=== PATIENT | male | born 1960 | race Caucasian/White ===

== ENCOUNTER 2020-09-25 13:43 | Emergency (ER) | payer OTHER, MEDICARE, SELFPAY ==
[2020-09-25 14:01] VITALS: BP 169/98; PULSE 72; RESP 18; O2SAT 100; BMI 19.2
--- NOTE | 2020-09-25 14:12 | CT_ITS ---
EXAMINATION: CT CERVICAL SPINE WITHOUT CONTRAST CLINICAL INFORMATION: Fall COMPARISON: Prior CT April 2019 TECHNIQUE: CT scan of cervical spine with reconstruction imaging performed at the acquisition workstation This CT examination was performed using dose optimization techniques as appropriate, variously including the following: *Automated exposure control *Adjustment of mA and/or kV according to patient size (this includes techniques or standardized protocols for targeted exams where dose is matched to indication/reason for exam; i.e. extremities or head) *Use of iterative reconstruction technique DLP: 310 mGy-cm FINDINGS: There is no fracture. There is multilevel spondylosis of the cervical spine with degenerative changes most prominent at the C5-C6 level with a prominent disc space narrowing endplate osteophytes. There is mild retrolisthesis of C5 on C6 likely due to degenerative changes. There is also anterolisthesis of C4 on C5 secondary to degenerative changes with advanced facet arthrosis. Additional degenerative changes noted throughout with varying degrees of facet arthrosis and degenerative disc change stable compared with the prior examination 2018. Additional findings: There is emphysema noted in the lung apices bilaterally unchanged. CT/CT cervical spine wo con IMPRESSION: No acute abnormality. Multilevel spondylosis of the cervical spine
--- NOTE | 2020-09-25 14:12 | CT_ITS ---
EXAMINATION: CT HEAD WITHOUT CONTRAST CLINICAL INFORMATION: Fall 2010 feet head injury. COMPARISON: CT head April 2019. TECHNIQUE: Contiguous axial imaging was performed from the skull base to vertex without intravenous administration of contrast. This CT examination was performed using dose optimization techniques as appropriate, variously including the following: *Automated exposure control *Adjustment of mA and/or kV according to patient size (this includes techniques or standardized protocols for targeted exams where dose is matched to indication/reason for exam; i.e. extremities or head) *Use of iterative reconstruction technique DLP: 1011 mGy-cm FINDINGS: There is no evidence of acute intracranial hemorrhage or territorial infarction. No abnormal mass effect or midline shift is seen. Lucio to white matter differentiation is well preserved. No extra-axial fluid collections are identified. The ventricles are normal in size. There is no abnormal attenuation within the brain parenchyma. The osseous structures and soft tissues are normal. The mastoid air cells and visualized portions of the paranasal sinuses are well aerated. CT/CT head/brain wo con IMPRESSION: No acute intracranial pathology.
--- NOTE | 2020-09-25 14:45 | PC.NURSE ---
WHEN TOLD THAT HE SHOULD NOT EAT, PT BEGAN TO YELL AND GOT DRESSED AND STATED HE WAS LEAVING, WHEN WE DISCUSSED THE REASONS WHY HE STILL DEMANDED TO EAT OR HE WAS LEAVING, THEN HE WALKED TO THE BATHROOM W HIS COLLAR ON STILL, PT IS ORIENTED X 3
--- NOTE | 2020-09-25 15:15 | PC.NURSE ---
patient was not seen by this nurse, this nurse went in to speak with the patient and his c-collar as well as hospital attire was found on the bed, pt was looked for and was not found, provider notified. pt eloped
--- NOTE | 2020-09-25 15:24 | ED.FALL ---
HPI - Fall General Chief Complaint: Fall Stated Complaint: fell hit back and shoulder area Time Seen by Provider: 09/25/20 14:12 Source: patient Mode of arrival: ambulatory History of Present Illness HPI Narrative: 59-year-old male with no significant past medical history presenting to ED complaining of full body pain s/p fall from about 10 ft high. Reports was trying to get into his own house, made ladder out of lawn tools, and lost footing/fell backwards, reporting left rib pain and feeling woozy/dizzy with mild headache. Unknown head trauma. Denies LOC, has been ambulatory since incident. Denies taking anticoagulation. Denies vision changes/for your vision, CP/SOB, abdominal pain, nausea/vomiting, weakness MD complaint: fall Related Data Allergies Allergy/AdvReac Type Severity Reaction Status Date / Time lisinopril [LISINOPRIL] Allergy Intermediate ANGIOEDEMA Unverified 07/31/20 14:44 codeine [CODEINE] AdvReac Mild NAUSEA & Unverified 07/31/20 14:44 VOMITING Review of Systems Review of Systems: Constitutional: No Fever, No Chills ENT/Mouth: No Hearing loss, No Ear Pain Eyes: No Vision Changes Cardiovascular: +l sided chest wall Pain, No SOB Respiratory: No Dyspnea Gastrointestinal: No Nausea, No Vomiting, No Diarrhea, No Constipation, No Abdominal pain Musculoskeletal: No joint pain Skin: No Skin Lesions, No rash Neuro: No Weakness, No Numbness, No Paresthesias, No Loss of Consciousness, +Dizziness, +Headache Yes all other systems are reviewed and are negative Neurologic: Denies Abnormal speech present and Denies Sensory deficit (Neuro) REPLACED BY [facility] Past Medical History Attestation statement: The following information was validated with the patient. Social History Social History Alcohol intake: current Alcohol intake frequency: 3 or more drinks per day Alcohol type: hard liquor Smoking Status: Current every day smoker Smoked in Last 30 Days: Yes Use of substances other than those prescribed or required for medical reasons: No Advance Directives: No Advance Directives Information Provided: No Physical Exam Vital Signs: Vital Signs: Last Vital Signs Pulse 72 09/25/20 14:01 Resp 18 09/25/20 14:01 BP 169/98 H 09/25/20 14:01 Pulse Ox 100 09/25/20 14:01 Body Mass Index 19.2 Const: General: cooperative and healthy appearing Orientation/consciousness: patient oriented x3 Limitations: no limitations HENMT: Head: Yes normal to inspection and Yes No palpable skull fracture present Ears: hearing grossly normal bilaterally General nose exam: Normal external nose present Face and sinus: Yes normal facial exam Mouth: Normal oral and palatal mucosa present Throat: Yes posterior oropharynx normal and Yes uvula midline Eyes: General: appearance normal, both eyes and all related structures Pupils: Equal, round and reactive pupils present EOM: EOMs intact bilaterally Neck: Neck: Yes normal visual inspection and Yes no meningeal signs Resp: Other: + left-sided lower anterior/lateral rib tenderness. No crepitus Effort & Inspection: normal respiratory effort and no stridor Cardio: Rate: regular rate GI: Inspection: Yes normal to inspection Palpation (GI): Soft to palpation, nontender, no guarding and not rigid Back/Spine/Pelvis: Other: No midline cervical, thoracic, or lumbar spinous tenderness Skin: Rashes: no rashes Wounds: no wounds Neuro: General: patient oriented x3, gait normal, tone normal, moves all extremities, no meningeal signs, no focal motor deficits and CN's II-XI intact bilaterally Cranial nerves: Yes Equal, round and reactive pupils present Cognition (Neuro): normal cognition Speech: No Abnormal speech present Gait exam (Neuro): Normal gait present Motor exam (neuro): 5/5 motor strength present throughout Sensory Exam: No Sensory deficit (Neuro) Coordination: [id number] test normal Extrem: General: Yes normal to inspection Course Course Course Narrative: -patient obtained CTs but then eloped to the ED prior to x-rays or results --1650-CT head without acute intracranial pathology, C-spine without acute abnormality MDM - Fall MDM Narrative Medical decision making narrative: 59-year-old male with no significant past medical history presenting to ED complaining of full body pain s/p fall from about 10 ft high. On exam VSS, NAD, C-collar placed on my evaluation, no midline spinous tenderness throughout, no red flag symptoms, left-sided rib tenderness elicited. No abdominal tenderness Plan: Head/C-spine CT, rib series, reassess Discharge Plan Discharge Patient Disposition: Elopement Discharge Date/Time: 09/25/20 15:16
== END 2020-09-25 15:16 | disposition left against medical advice (07) ==
PROVIDERS: Emergency Provider Emergency Medicine
DX: G89.29 Other chronic pain (principal); M54.2 Cervicalgia; M54.5 Low back pain; M25.512 Pain in left shoulder; M25.511 Pain in right shoulder; G44.309 Post-traumatic headache, unspecified, not intractable; F17.200 Nicotine dependence, unspecified, uncomplicated; Z71.6 Tobacco abuse counseling
CPT/HCPCS: 70450; 72125; 99283; 99284

== ENCOUNTER 2020-12-25 12:06 | Outpatient (REF) | payer OTHER, MEDICARE, SELFPAY | END 2020-12-25 12:07 | disposition home or self-care (01) | LOC: HO.LAB 12:06 | PROVIDERS: Visit Provider Internal Medicine | DX: Z20.822 Contact with and (suspected) exposure to COVID-19 (principal) | CPT/HCPCS: 36415; C9803; U0003; U0005 ==

== ENCOUNTER 2021-01-31 03:41 | Emergency (ER) | payer OTHER, MEDICARE, SELFPAY ==
--- NOTE | ~2021-01-31 | CT_ITS ---
EXAMINATION: CT HEAD WITHOUT CONTRAST CLINICAL INFORMATION: found unconscious, woke up with [employer] COMPARISON: 09/25/2020 TECHNIQUE: Contiguous axial imaging was performed from the skull base to vertex without intravenous administration of contrast. This CT examination was performed using dose optimization techniques as appropriate, variously including the following: *Automated exposure control *Adjustment of mA and/or kV according to patient size (this includes techniques or standardized protocols for targeted exams where dose is matched to indication/reason for exam; i.e. extremities or head) *Use of iterative reconstruction technique DLP: 666 mGy-cm FINDINGS: There is no evidence of acute intracranial hemorrhage or territorial infarction. No abnormal mass effect or midline shift is seen. Lucio to white matter differentiation is well preserved. No extra-axial fluid collections are identified. The ventricles are normal in size. There is no abnormal attenuation within the brain parenchyma. Calcific atherosclerosis is present within the cavernous and supraclinoid segments of the internal carotid arteries. The osseous structures and soft tissues are normal. The mastoid air cells and visualized portions of the paranasal sinuses are well aerated. CT/CT head/brain wo con IMPRESSION: No acute intracranial pathology.
[2021-01-31 03:50] VITALS: BP 131/82; BP 171/92; PULSE 107; PULSE 96; RESP 15; TEMP 36.7; O2SAT 96; O2SAT 98; BMI 19.6
--- NOTE | 2021-01-31 04:53 | ED.FALL ---
HPI - Fall General Chief Complaint: Fall Stated Complaint: fall Time Seen by Provider: 01/31/21 04:47 Source: patient Mode of arrival: EMS Limitations: no limitations History of Present Illness HPI Narrative: Patient is brought by EMS, patient states that [place] today [place], and he was walking down the street with a friend, next thing he knows is that he woke up by a gas station, his left elbow was hurting, his wallet and cellphone missing. Patient states he has a mild headache. Otherwise patient states that he feels well. Related Data Allergies Allergy/AdvReac Type Severity Reaction Status Date / Time lisinopril [LISINOPRIL] Allergy Intermediate ANGIOEDEMA Unverified 07/31/20 14:44 codeine [CODEINE] AdvReac Mild NAUSEA & Unverified 07/31/20 14:44 VOMITING Review of Systems Review of Systems: Constitutional : No Weight loss, No Fever, No Chills, No Night Sweats, No Fatigue, No Malaise ENT/Mouth : No Hearing loss, No Ear Pain, No Nasal Congestion, No Sinus Pain, No Hoarseness, No sore throat, No Rhinorrhea, No Swallowing Difficulty Eyes: No Eye Pain, No Swelling, No Redness, No Foreign Body, No Discharge, No Vision Changes Cardiovascular : No Chest Pain, No SOB, No Dyspnea on Exertion, No Orthopnea, No Edema, No Palpitations Respiratory : No Cough, No Sputum, No Wheezing, No Smoke Exposure, No Dyspnea Gastrointestinal : No Nausea, No Vomiting, No Diarrhea, No Constipation, No abdominal Pain, No Hematochezia, No Melena Genitourinary : no irregular bleeding, No Dysuria, No Urinary Frequency, No Hematuria, No Urinary Incontinence, No Urgency, No Flank Pain, No Urinary Flow Changes, No Hesitancy Musculoskeletal : Mild left elbow pain, No Myalgias, No Joint Swelling Skin : No Skin Lesions, No rash Neuro : No Weakness, No Numbness, No Paresthesias, possible loss of consciousness/alcohol intoxication, headache Psych : No Anxiety/Panic, No Depression, No SI/HI/AH/VH, No Social Issues, Heme/Lymph: No Bruising, No Bleeding,No Lymphadenopathy Endocrine : No Polyuria, No Polydipsia, No Temperature Intolerance PMFSH Past Medical History Medical History Alcohol abuse Diabetes Hypertension Surgical History No history of previous surgery Social History Social History Alcohol intake: current Alcohol intake frequency: 0-2 drinks per day Alcohol type: hard liquor Smoking Status: Current every day smoker Use of substances other than those prescribed or required for medical reasons: No Advance Directives: No Advance Directives Information Provided: No Physical Exam Vital Signs: Vital Signs: Last Vital Signs Temp 98.1 F 01/31/21 03:50 Pulse 107 H 01/31/21 03:50 Resp 15 01/31/21 03:50 BP 171/92 H 01/31/21 03:50 Pulse Ox 98 01/31/21 03:50 Body Mass Index 19.6 Appearance: Alert. Oriented X3. No acute distress. Disheveled Eyes: Pupils equal, round and reactive to light. ENT: Pharynx normal. Neck: Normal inspection. Neck supple. No lymph nodes noted. No crepitus CVS: Normal heart rate and rhythm. Pulses normal. Normal S1 and S2 Respiratory: No respiratory distress. Breath sounds normal. No Wheezing. No rales Abdomen: Soft and nontender. No rigidity. No distention. good BS x4 Skin: Skin warm and dry. Normal skin color. Normal skin turgor. Extremities: No lower extremity edema. No lower extremity edema. No Lacerations. No Rash Neuro: Oriented X 3. No motor deficit. No sensory deficit. Moving all extermities. No slurred speech. Course Course Course Narrative: Patient is awake, alert, ambulates by himself. CT scan negative. Patient looking for a sober ride MDM - Fall Imaging Data CT scan - head: Radiologist's impression: FINDINGS: There is no evidence of acute intracranial hemorrhage or territorial infarction. No abnormal mass effect or midline shift is seen. Lucio to white matter differentiation is well preserved. No extra-axial fluid collections are identified. The ventricles are normal in size. There is no abnormal attenuation within the brain parenchyma. Calcific atherosclerosis is present within the cavernous and supraclinoid segments of the internal carotid arteries. The osseous structures and soft tissues are normal. The mastoid air cells and visualized portions of the paranasal sinuses are well aerated. CT/CT head/brain wo con IMPRESSION: No acute intracranial pathology. Discharge Plan Discharge Clinical Impression: Alcohol intoxication Qualifiers: Complication of substance-induced condition: uncomplicated Qualified Code(s): F10.920 - Alcohol use, unspecified with intoxication, uncomplicated Patient Disposition: Home, Self-Care Instructions: Alcohol Intoxication (ED) Additional Instructions: Please follow-up with your primary care physician tomorrow. If you have any worsening or new symptoms, please return to the emergency room or call 911
== END 2021-01-31 06:23 | disposition home or self-care (01) ==
PROVIDERS: Emergency Provider Emergency Medicine
DX: F10.120 Alcohol abuse with intoxication, uncomplicated (principal); Y90.9 Presence of alcohol in blood, level not specified; M25.522 Pain in left elbow; E11.9 Type 2 diabetes mellitus without complications; I10 Essential (primary) hypertension
CPT/HCPCS: 70450; 99284

== ENCOUNTER 2021-02-01 18:35 | Emergency (ER) | payer OTHER, MEDICARE, SELFPAY ==
--- NOTE | ~2021-02-01 | XR_ITS ---
EXAMINATION: XR HAND/WRIST, RIGHT CLINICAL INFORMATION: Fall. COMPARISON: None TECHNIQUE: AP, oblique, lateral, and scaphoid views of the right hand and wrist. FINDINGS: No acute fracture or dislocation. Normal carpal alignment. Remote, healed fracture through the distal 5th metacarpal. No joint space narrowing or marginal osteophytes. No osseous erosion. No abnormal soft tissue calcification. XR/XR hand wrist RT IMPRESSION: No acute fracture or dislocation.
--- NOTE | ~2021-02-01 | CT_ITS ---
EXAMINATION: CT HEAD WITHOUT CONTRAST CT CERVICAL SPINE WITHOUT CONTRAST CLINICAL INFORMATION: Fall. EtOH. COMPARISON: CT head dated 01/31/2021. CT head and cervical spine dated 09/25/2020. TECHNIQUE: Contiguous axial imaging was performed from the skull base to vertex without intravenous administration of contrast. Contiguous axial CT images of the cervical spine were obtained without contrast. Sagittal and coronal reformats were provided and reviewed. This CT examination was performed using dose optimization techniques as appropriate, variously including the following: *Automated exposure control. *Adjustment of mA and/or kV according to patient size (this includes techniques or standardized protocols for targeted exams where dose is matched to indication/reason for exam; i.e. extremities or head). *Use of iterative reconstruction technique. DLP: 1059 mGy-cm FINDINGS: HEAD: There is no evidence of acute intracranial hemorrhage or territorial infarction. No abnormal mass effect or midline shift is seen. [id number] matter differentiation is well preserved. No extra-axial fluid collections are identified. The ventricles are normal in size. There is no abnormal attenuation within the brain parenchyma. The osseous structures and soft tissues are normal. The mastoid air cells and visualized portions of the paranasal sinuses are well aerated. CERVICAL SPINE: Straightening of the normal cervical lordosis, which may be positional or related to muscular spasm. Grade 1 anterolisthesis of C4 on C5, unchanged. No acute fracture or subluxation. No loss of vertebral body height. Loss of intervertebral disc height with endplate degenerative changes and osteophytes at C5-C6, unchanged. Multilevel bilateral facet arthropathy, unchanged. No lytic or blastic osseous lesion. Unremarkable prevertebral soft tissues. No abnormal soft tissue mass or fluid collection. Thyroid within normal limits. Biapical nodular pleural thickening and emphysematous changes are similar when compared to the prior examination. Mild multilevel bilateral neural foraminal stenosis, not significantly changed. CT/CT cervical spine wo con IMPRESSION: HEAD: No acute intracranial hemorrhage or mass effect. CERVICAL SPINE: 1. No acute fracture or subluxation. 2. Degenerative disc disease and bilateral facet arthropathy with mild bilateral neural foraminal stenosis, unchanged.
[2021-02-01 18:52] VITALS: BP 124/79; PULSE 90; RESP 18; TEMP 36.6; O2SAT 100
--- NOTE | 2021-02-01 19:04 | ED_ITS ---
HPI - General Adult General Chief complaint: Head Injury Stated complaint: etoh Time Seen by Provider: 02/01/21 18:45 Source: patient and EMS Mode of arrival: ambulatory Limitations: no limitations History of Present Illness HPI narrative: Patient presents to ED for alcohol intoxication and falling. EMS reports that patient was drinking and then was walking on the street and any felled and bystanders called. Patient admits to falling after drinking. Related Data Allergies Allergy/AdvReac Type Severity Reaction Status Date / Time lisinopril [LISINOPRIL] Allergy Intermediate ANGIOEDEMA Unverified 07/31/20 14:44 codeine [CODEINE] AdvReac Mild NAUSEA & Unverified 07/31/20 14:44 VOMITING Review of Systems Review of Systems: Yes all other systems are reviewed and are negative Constitutional: Constitutional: Reports as per HPI and Reports no additional constitutional complaints Eyes: Eyes: Reports as per HPI and Reports no additional eye complaints ENT: Reports system reviewed and no additional complaints, except as documented and Reports as per HPI Cardiovascular: Cardiovascular: Reports as per HPI and Reports no additional cardiovascular complaints Respiratory: Respiratory: Reports as per HPI and Reports no additional respiratory complaints Gastrointestinal: Gastrointestinal: Reports as per HPI and Reports no additional gastrointestinal complaints Genitourinary: Genitourinary: Reports no additional male genitourinary complaints and Reports as per HPI Musculoskeletal: Musculoskeletal: Reports no additional musculoskeletal complaints and Reports as per HPI Neurologic: Reports system reviewed and no additional complaints, except as documented and Reports as per HPI Psychiatric: Psychiatric: Reports no additional psychiatric complaints and Reports as per HPI PMFSH Past Medical History Medical History Alcohol abuse Diabetes Hypertension Surgical History No history of previous surgery Social History Social History Alcohol intake: current Alcohol intake frequency: 0-2 drinks per day Alcohol type: hard liquor Smoking Status: Current every day smoker Advance Directives: No Advance Directives Information Provided: No Physical Exam Vital Signs: Vital Signs: Last Vital Signs Temp 98 F 02/01/21 18:52 Pulse 90 02/01/21 18:52 Resp 20 02/02/21 01:05 BP 124/79 02/01/21 18:52 Pulse Ox 100 02/01/21 18:52 Body Mass Index 0.1 Const: Other: Alcohol on breath General: cooperative, healthy appearing, comfortable, no acute distress, well developed, alert, awake and Physically active Orientation/consciousness: patient oriented x3 HENMT: Other: Positive for small laceration on nasal bridge. Rest of an nose abrasion/skin tear. Head: Yes normal to inspection, No normocephalic, No atraumatic, Yes abrasion (Right frontal abrasion/skin tear), No Salcido's sign, No contusion, No cranial bruits, No hematoma, Yes laceration (Nasal bridge), No occipital foramen tenderness, No palpable skull fracture, No raccoon eyes, No scalp lesion, No scalp tenderness, No Temporal artery tenderness present, No periorbital ecchymosis and Yes other Eyes: General: appearance normal, both eyes and all related structures Neck: Neck: Yes normal visual inspection, Yes full ROM, Yes no lymphadenopathy, Yes no meningeal signs, Yes trachea midline, Yes supple and No tender Chest: Chest palpation & inspection: normal inspection of the chest and normal palpation of entire chest wall Resp: Effort & Inspection: able to speak in complete sentences Auscultation: clear to auscultation bilaterally Cardio: Jugular venous distension: no JVD Heart sounds: S1 normal heart sound present and S2 normal heart sound present GI: Inspection: No normal to inspection and No abdominal wall ecchymosis Palpation (GI): Soft to palpation, not firm, nontender, no guarding and not rigid : General: No CVA tenderness and Yes no CVA tenderness Back/Spine/Pelvis: Back: no CVA tenderness, No CVA tenderness and No back tenderness Skin: Other: Facial and right hand laceration Neuro: General: patient oriented x3, no meningeal signs and CN's II-XI intact bilaterally Cranial nerves: Yes CN's II-XII intact bilaterally Extrem: Other: Right hand: Positive for palm abrasion. Negative for laceration Course Course Course Narrative: Patient sent to imaging immediately to rule out any bleed or neck fracture. Will repair laceration if indicated. Reevaluation(s) Reevaluation #1: Patient images negative for any fracture or bleed. Patient given tetanus injection. 1% lidocaine 5 mL was used to anesthetize laceration on nasal bridge tonsil bowel 2 cm. Normal saline and Betadine used to clean wound. Size 4 monofilament nylon suture was used. Laceration was linear. Medical Decision Making MDM Narrative Medical decision making narrative: Alcohol abuse Discharge Plan Discharge Clinical Impression: Closed head injury, Alcohol abuse, Laceration Patient Disposition: Home, Self-Care Instructions: Head Injury (ED), Abuse of Alcohol (ED), Facial Laceration (ED) Additional Instructions: Return to ED immediately for any headache, dizziness, vomiting blood, dizziness, weakness, chest pain, shortness of breath, rectal bleeding, abdominal pain, any other concerning symptoms. Return to the ED in 7 days for suture removal on nares. Interventions: ED Discharge Assessment Last Done: 02/02/21 01:04 Discharge Date/Time: 02/02/21 01:06 Print Language: Surinamese
[2021-02-01 20:00] VITALS: RESP 16
[2021-02-01 22:00] VITALS: RESP 18
[2021-02-01] MEDS: Lidocaine HCl 1 % MPF 5 ML VIAL INFILTRATI (22:12)
--- NOTE | 2021-02-01 22:50 | PC.NURSE ---
PT R SIDE LYING IN BED SLEEPING, RR EVEN UNLABORED, SKIN WPD, NAD, PT EASILY AROUSABLE TO VOICE, PT OFFERS NO ACUTE COMPLAINTS, WILL SWEAR AT ANY STAFF WHO WAKE HIM, PT THEN BACK TO SLEEP.
--- NOTE | 2021-02-01 23:34 | PC.NURSE ---
Pt medicated with Tetanus. PA at bedside for wound repair. Pt ambulating to the bathroom with a steady gait.
[2021-02-01 23:37] VITALS: RESP 18
--- NOTE | 2021-02-02 00:42 | PC.NURSE ---
This RN at bedside with pts DC paperwork. Pt states stop talking to me like your a helicopter mechanic!! as this RN was asking pt who to call for a ride home. Pt then replied call the home, I already signed the paperwork!!! This RN to try again later.
[2021-02-02 01:05] VITALS: RESP 20
== END 2021-02-02 01:06 | disposition home or self-care (01) ==
PROVIDERS: Emergency Provider Internal Medicine
DX: F10.120 Alcohol abuse with intoxication, uncomplicated (principal); Y90.9 Presence of alcohol in blood, level not specified; S09.90XA Unspecified injury of head, initial encounter; S01.21XA Laceration without foreign body of nose, initial encounter; S61.411A Laceration without foreign body of right hand, initial encounter; S00.31XA Abrasion of nose, initial encounter; W01.0XXA Fall on same level from slipping, tripping and stumbling without subsequent striking against object, initial encounter; E11.9 Type 2 diabetes mellitus without complications; I10 Essential (primary) hypertension; F17.200 Nicotine dependence, unspecified, uncomplicated; Y93.01 Activity, walking, marching and hiking; Y92.480 Sidewalk as the place of occurrence of the external cause; Y99.9 Unspecified external cause status
CPT/HCPCS: 12001; 70450; 72125; 73110; 73130; 90471; 90715; 99284

== ENCOUNTER 2021-02-11 01:14 | Emergency (ER) | payer OTHER, MEDICARE, SELFPAY ==
--- NOTE | 2021-02-11 02:05 | ED.EAR ---
HPI - Ear Problem General Stated complaint: Ear pain Time Seen by Provider: 02/11/21 02:05 Source: patient Mode of arrival: ambulatory Limitations: no limitations History of Present Illness HPI Narrative: Patient complaining of ringing in the ER for last few days was here few days ago had a CT scan of the head was negative no ear discharge no trauma to the EAR no balance problem no nausea no vomiting no pain in the ER Related Data Allergies Allergy/AdvReac Type Severity Reaction Status Date / Time lisinopril [LISINOPRIL] Allergy Intermediate ANGIOEDEMA Unverified 07/31/20 14:44 codeine [CODEINE] AdvReac Mild NAUSEA & Unverified 07/31/20 14:44 VOMITING Review of Systems Review of Systems: Yes all other systems are reviewed and are negative [facility] Past Medical History Medical History Alcohol abuse Diabetes Hypertension Surgical History No history of previous surgery Social History Social History Alcohol intake: current Alcohol intake frequency: 0-2 drinks per day Alcohol type: hard liquor Smoking Status: Current every day smoker Advance Directives: No Physical Exam Const: General: comfortable and no acute distress Orientation/consciousness: patient oriented x3 HENMT: Head: Yes normocephalic Ears: hearing grossly normal bilaterally, TM normal on the left, unable to visualize TM on the right and other (Impacted cerumen right ear) Eyes: General: appearance normal, both eyes and all related structures Resp: Effort & Inspection: normal respiratory effort Auscultation: clear to auscultation bilaterally Cardio: Palpation: normal PMI Rate: regular rate Rhythm: regular rhythm Heart sounds: S1 normal heart sound present and S2 normal heart sound present Peripheral pulses: Peripheral pulses 2+ throughout GI: Inspection: Yes normal to inspection Palpation (GI): Soft to palpation and nontender Auscultation: normal bowel sounds Neuro: General: patient oriented x3, gait normal, moves all extremities, no focal motor deficits and CN's II-XI intact bilaterally Extrem: General: Yes normal to inspection, Yes no calf tenderness, Yes normal gait and No pedal edema Procedures Ear Wax Removal Right Ear: Results: Re-examined: cerumen removed completely TM Examination: TM(s) intact, normal appearance Ear Canal Exam: atraumatic Patient Tolerated Procedure: well Complications: no problems Technique: ear canal irrigated Discharge Plan Discharge Clinical Impression: Impacted cerumen of right ear Tinnitus Qualifiers: Laterality: right Qualified Code(s): H93.11 - Tinnitus, right ear Patient Disposition: Home, Self-Care Instructions: Tinnitus (ED) Additional Instructions: Local care of ears as advised follow-up with ENT
[2021-02-11 02:14] VITALS: BP 148/62; PULSE 84; RESP 15; TEMP 37; O2SAT 98; BMI 20.4
[2021-02-11] MEDS: hydrOXYzine HCL 25 MG TABLET PO (02:21)
== END 2021-02-11 02:28 | disposition home or self-care (01) ==
PROVIDERS: Emergency Provider Internal Medicine
DX: H93.11 Tinnitus, right ear (principal); I10 Essential (primary) hypertension; E11.9 Type 2 diabetes mellitus without complications; Z79.899 Other long term (current) drug therapy
CPT/HCPCS: 69209; 99284

== ENCOUNTER 2021-02-27 09:05 | Emergency (ER) | payer OTHER, MEDICARE, MEDICAID, SELFPAY ==
--- NOTE | ~2021-02-27 | CT_ITS ---
EXAMINATION: CT BRAIN AND CT CERVICAL SPINE WITHOUT CONTRAST CLINICAL INFORMATION: Headache found fall down. COMPARISON: CT brain and CT cervical spine 02/01/2021 TECHNIQUE: 5 mm thin axial and reformatted 2 mm thin sagittal and coronal images of brain were obtained without contrast. Subsequently axial 3 mm thin and reformatted 2 mm thin sagittal and coronal images of cervical spine were obtained. DLP [id number] FINDINGS: BRAIN: There is no acute intra-axial, extra-axial bleed, masses, collection or midline shift. There is no acute infarction in evolution. The lateral ventricles are symmetrical in size and configuration with mild prominence. The cortical sulci is prominent as well. The tellez to white matter differentiation is maintained normal. Bone windows reveal no calvarial abnormality. There is no scalp soft tissue abnormality. Bilateral paranasal sinuses and mastoid air cells are well-aerated. CERVICAL SPINE: There is normal cervical lordosis. There is a grade 1 retrolisthesis C5 over C6. Rest of the vertebral alignment is normal. There is mild rotary subluxation of the C1-C2 alignment. The craniovertebral junction is normal. No visible acute fracture or dislocation seen. There is mild facet joint arthropathy right C2-C3, left C3-C4, C4-C5 facet joints. There is mild bilateral C5-C6 neural foraminal narrowing. There is no visible acute fracture, dislocation or subluxation seen. The prevertebral and paravertebral soft tissues are normal. There is diffuse paraseptal emphysema in both lung bases with chronic bilateral parenchymal scarring. Bilateral thyroid and submandibular glands are symmetrical and normal. CT/CT cervical spine wo con IMPRESSION: No acute intracranial process seen. Rotatory subluxation of the C1-C2 disc level. Question spasm There is no acute fracture or dislocation cervical spine. There are degenerative disc changes with spondylosis C5-C6 disc level with grade 1 retrolisthesis C5 over C6.. Diffuse centrilobular emphysema both lung apices. No major change compared to previous CT brain and C-spine 02/01/2021
[2021-02-27 09:22] VITALS: BP 147/93; BP 162/114; PULSE 110; PULSE 90; RESP 20; TEMP 34.7
--- NOTE | 2021-02-27 09:38 | ECG_ITS ---
Test Reason : FALL Blood Pressure : / mmHG Vent. Rate : 078 BPM Atrial Rate : 078 BPM P-R Int : 170 ms QRS Dur : 080 ms QT Int : 412 ms P-R-T Axes : 078 072 069 degrees QTc Int : 469 ms Normal sinus rhythm Cannot rule out septal infarct (can be related with lead V1 and V2 placement) Abnormal ECG When compared with ECG of 04-DEC-2017 11:52, Septal infarct is now Present Referred By: Nadja Gay Electronically Signed By:Fortunato Bedolla
--- NOTE | 2021-02-27 09:42 | ED_ITS ---
HPI - General Adult General Chief complaint: General Medical Stated complaint: slept outside ?hypothermia Time Seen by Provider: 02/27/21 09:22 Source: patient and EMS Mode of arrival: EMS Limitations: no limitations History of Present Illness HPI narrative: 60 y/o male with history of HTN and alcohol abuse/dependence who presents to the ED via EMS after he was found sleeping outside on a bench. It snowed overnight and there was concern for hypothermia. No readable oral temperature. He reports sleeping outside every night. He arrives AAO x2, did not know month or day. Admits to daily ETOH use, last was last night. Wound not quantify. He reports increased falls and tripping on things. He fell on a curb yesterday and hit his head. He did not lose consciousness or sustain and notable injuries. He reports a mild headache and some mild chronic lower back pain, 01/21. He denies drug use. MD complaint: hypothermia Onset (ago): day(s) (1) Radiation: non-radiation Quality: aching Relieving factors: none Exacerbating factors: none Associated symptoms: confusion and malaise Treatments prior to arrival: none Related Data Allergies Allergy/AdvReac Type Severity Reaction Status Date / Time lisinopril [LISINOPRIL] Allergy Intermediate ANGIOEDEMA Unverified 07/31/20 14:44 codeine [CODEINE] AdvReac Mild NAUSEA & Unverified 07/31/20 14:44 VOMITING Review of Systems Review of Systems: Constitutional: No Fever, + Chills ENT/Mouth: No sore throat, No Rhinorrhea, No Swallowing Difficulty Eyes: No Eye Pain, No Swelling, No Redness Cardiovascular: No Chest Pain, No SOB, No Orthopnea, No Edema Respiratory: No Cough, No Sputum, No Wheezing, No dyspnea Gastrointestinal: No Nausea, No Vomiting, No Diarrhea, No abdominal Pain, No Hematochezia, No Melena Genitourinary: No Dysuria, No Urinary Frequency, No Hematuria Musculoskeletal: + joint pain, + Myalgias Skin: No Skin Lesions, No rash Neuro: No Weakness, No Numbness, No Dizziness, + Headache Psych: No Anxiety/Panic, No Depression Heme/Lymph: No Bruising, No Lymphadenopathy Endocrine: No Polyuria, No Polydipsia PMFSH Past Medical History Attestation statement: The following information was validated with the patient. Medical History Alcohol abuse Diabetes Hypertension Surgical History No history of previous surgery Social History Social History Alcohol intake: current Alcohol intake frequency: 3 or more drinks per day Alcohol type: beer Smoking Status: Current every day smoker Smoked in Last 30 Days: Yes Use of substances other than those prescribed or required for medical reasons: No Advance Directives: No Advance Directives Information Provided: No Physical Exam Vital Signs: Vital Signs: Last Vital Signs Temp 97.0 F 02/27/21 12:15 Pulse 74 02/27/21 12:15 Resp 14 02/27/21 12:15 BP 103/68 02/27/21 12:15 Pulse Ox 98 02/27/21 12:15 Body Mass Index 20.0 Appearance: Alert. Oriented X2. No acute distress. Eyes: Pupils equal, round and reactive to light. ENT: Pharynx normal. Neck: Normal inspection. Neck supple. CVS: Normal heart rate and rhythm. Pulses normal. Respiratory: No respiratory distress. Breath sounds normal. Abdomen: Soft and nontender. +BS x4 Skin: Skin warm and dry. Normal skin color. Normal skin turgor. No rashes. Extremities: No lower extremity edema. Cool to the touch with 2+ peripheral pulses. Neuro: Oriented X 2. No motor deficit. No sensory deficit. Course Course Course Narrative: 60 y/o male presenting with hypothermia after exposure outside all night. He appears intoxicated. Non-focal neuro examination. Core temp 94.5. Warm IVF and warm blankets applied. Will get labs to r/o metabolic derangements, EKG and CT head/neck given recent fall. Will monitor temps frequently. Hold off on Be hugger for now given temp is >94 degrees. Reevaluation(s) Reevaluation #1: CT scan showing no acute traumatic injuries, no change from prior scan. Labs showing stable macrocytic anemia, CPK 196. ETOH 277. s/p 2 warm IVF. Now normothermic. He remains hemodynamically stable. He is refusing homeless senior living referrals or etoh detox. He is stable for discharge at this time. Medical Decision Making Lab Data Result diagrams: 02/27/21 10:31 02/27/21 11:30 Labs: Lab Results 02/27/21 02/27/21 02/27/21 Range/Units 10:31 10:31 11:30 WBC 5.4 (4.8-10.8) X10*3/uL RBC 4.09 L (4.60-5.80) X10*6/uL Hgb 13.9 L (14.0-18.0) g/dl Hct 41.8 L (42-52) % MCV 102.2 H (80-98) fL MCH 34.0 H (27.0-33.0) pg MCHC 33.3 (31.0-36.0) g/dl RDW 13.9 (11.0-16.0) % Plt Count 138 L (160-400) X10*3/uL MPV 10.0 (9.4-12.4) fL Immature Gran % (Auto) 0.4 (0.0-0.4) % Neut % (Auto) 70.7 (45-73) % Lymph % (Auto) 20.7 (20-40) % [place] % (Auto) 6.9 (2-11) % Eos % (Auto) 0.7 (0-4) % Baso % (Auto) 0.6 (0-2) % Lymph # (Auto) 1.1 L (1.2-4.9) X10*3/uL [place] # (Auto) 0.4 (0.1-1.2) X10*3/uL Eos # (Auto) 0.0 (0.0-0.4) X10*3/uL Baso # (Auto) 0.0 (0.0-0.2) X10*3/uL Abs Immat Gran (auto) 0.02 (0.00-0.03) X10*3/uL Absolute Neuts (auto) 3.8 (2.0-8.3) X10*3/uL Absolute Nucleated RBC 0.000 (0.0-0.012) X10*3/uL Nucleated RBC % (auto) 0.0 (0.0-0.2) /100WBC Hold Blue Top SEE NOTE Sodium 143 (135-145) mmol/L Potassium 4.4 (3.3-5.1) mmol/L Chloride 109 H (96-108) mmol/L Carbon Dioxide 26 (22-29) mmol/L Anion Gap 12 (12-20) BUN 8 L (9-16) mg/dL Creatinine 0.65 (0.5-1.4) mg/dL Estim Creat Clear Calc 108.1 Estimated GFR > 60 Random Glucose 83 (60-115) mg/dL Calcium 7.8 L (8.4-10.2) mg/dL Magnesium 2.0 (1.6-2.6) mg/dL Total Bilirubin 0.3 (0.0-1.0) mg/dL Direct Bilirubin < 0.2 (0.0-0.5) mg/dL AST 29 (5-37) U/L ALT 20 (0-40) U/L Alkaline Phosphatase 67 (39-117) U/L Total Creatine Kinase 196 H (38-174) U/L Total Protein 6.4 L (6.5-8.0) g/dL Albumin 3.8 (3.5-5.0) g/dL Ethyl Alcohol mg/dL 02/27/21 Range/Units 11:30 WBC (4.8-10.8) X10*3/uL RBC (4.60-5.80) X10*6/uL Hgb (14.0-18.0) g/dl Hct (42-52) % MCV (80-98) fL MCH (27.0-33.0) pg MCHC (31.0-36.0) g/dl RDW (11.0-16.0) % Plt Count (160-400) X10*3/uL MPV (9.4-12.4) fL Immature Gran % (Auto) (0.0-0.4) % Neut % (Auto) (45-73) % Lymph % (Auto) (20-40) % [place] % (Auto) (2-11) % Eos % (Auto) (0-4) % Baso % (Auto) (0-2) % Lymph # (Auto) (1.2-4.9) X10*3/uL [place] # (Auto) (0.1-1.2) X10*3/uL Eos # (Auto) (0.0-0.4) X10*3/uL Baso # (Auto) (0.0-0.2) X10*3/uL Abs Immat Gran (auto) (0.00-0.03) X10*3/uL Absolute Neuts (auto) (2.0-8.3) X10*3/uL Absolute Nucleated RBC (0.0-0.012) X10*3/uL Nucleated RBC % (auto) (0.0-0.2) /100WBC Hold Blue Top Sodium (135-145) mmol/L Potassium (3.3-5.1) mmol/L Chloride (96-108) mmol/L Carbon Dioxide (22-29) mmol/L Anion Gap (12-20) BUN (9-16) mg/dL Creatinine (0.5-1.4) mg/dL Estim Creat Clear Calc Estimated GFR Random Glucose (60-115) mg/dL Calcium (8.4-10.2) mg/dL Magnesium (1.6-2.6) mg/dL Total Bilirubin (0.0-1.0) mg/dL Direct Bilirubin (0.0-0.5) mg/dL AST (5-37) U/L ALT (0-40) U/L Alkaline Phosphatase (39-117) U/L Total Creatine Kinase (38-174) U/L Total Protein (6.5-8.0) g/dL Albumin (3.5-5.0) g/dL Ethyl Alcohol 279 mg/dL Discharge Plan Discharge Clinical Impression: Hypothermia due to exposure, Alcohol intoxication Patient Disposition: Home, Self-Care Instructions: Alcohol Intoxication (ED), Acute Hypothermia (ED) Additional Instructions: Do not drink alcohol. Recommend detox. Recommend homeless shelters but you are refusing.
[2021-02-27 10:40] LABS: MANUAL DIFF FLAG NO
[2021-02-27 10:43] LABS: Basophils Percent Auto 0.6 % (0-2); Eosinophils Percent Auto 0.7 % (0-4); Hematocrit 41.8 % (42-52); Hemoglobin 13.9 g/dl (14.0-18.0); Imm Gran Abs Auto 0.02 X10*3/uL (0.00-0.03); Imm Gran Pct Auto 0.4 % (0.0-0.4); Lymphocytes Absolute Auto 1.1 X10*3/uL (1.2-4.9); Lymphocytes Percent Auto 20.7 % (20-40); Mean Corpuscular HGB Conc 33.3 g/dl (31.0-36.0); Mean Corpuscular Volume 102.2 fL (80-98); Monocytes Absolute Auto 0.4 X10*3/uL (0.1-1.2); Monocytes Percent Auto 6.9 % (2-11); Neutrophils Absolute Auto 3.8 X10*3/uL (2.0-8.3); Neutrophils Percent Auto 70.7 % (45-73); Platelet Count 138 X10*3/uL (160-400); Red Blood Count 4.09 X10*6/uL (4.60-5.80); Red Cell Distribution Width 13.9 % (11.0-16.0); White Blood Count 5.4 X10*3/uL (4.8-10.8)
[2021-02-27] MEDS: 0.9 % Sodium Chloride 1,000 ML 999 ML IVCONT ×2 (10:46→12:56)
--- NOTE | 2021-02-27 10:47 | PC.NURSE ---
Warm IVF given. IV placed and labs obtained.
[2021-02-27 11:17] VITALS: BP 108/71; PULSE 76
[2021-02-27 11:59] LABS: Ethanol 279 mg/dL
[2021-02-27 12:02] LABS: Alanine Aminotransferase 20 U/L (0-40); Albumin Level 3.8 g/dL (3.5-5.0); Alkaline Phosphatase 67 U/L (39-117); Anion Gap 12 (12-20); Aspartate Amino Transferase 29 U/L (5-37); Blood Urea Nitrogen 8 mg/dL (9-16); Calcium 7.8 mg/dL (8.4-10.2); Carbon Dioxide 26 mmol/L (22-29); Chloride 109 mmol/L (96-108); Creatinine Clr Calc Pharmacy 108.1; Estimated Glomerular Filt Rate > 60; Glucose Random 83 mg/dL (60-115); Potassium 4.4 mmol/L (3.3-5.1); Sodium 143 mmol/L (135-145); Total Protein 6.4 g/dL (6.5-8.0)
[2021-02-27 12:15] VITALS: BP 103/68; PULSE 74; RESP 14; TEMP 36.1; O2SAT 98
[2021-02-27 12:17] LABS: Bilirubin Direct < 0.2 mg/dL (0.0-0.5); Bilirubin Total 0.3 mg/dL (0.0-1.0)
--- NOTE | 2021-02-27 12:20 | PC.NURSE ---
Temperature improving after warm blankets and warm IV fluids. PT sleeping and is easily arrousable.
[2021-02-27 14:00] VITALS: BP 121/72; PULSE 79; TEMP 37.3
== END 2021-02-27 14:35 | disposition home or self-care (01) ==
PROVIDERS: Physician Assistant; Emergency Provider Emergency Medicine Emergency Medical Services
DX: F10.129 Alcohol abuse with intoxication, unspecified (principal); T68.XXXA Hypothermia, initial encounter; R51.9 Headache, unspecified; M54.5 Low back pain; X58.XXXA Exposure to other specified factors, initial encounter; Y93.9 Activity, unspecified; Y92.9 Unspecified place or not applicable; Y99.9 Unspecified external cause status; Y90.8 Blood alcohol level of 240 mg/100 ml or more; F17.200 Nicotine dependence, unspecified, uncomplicated; Z71.6 Tobacco abuse counseling; Z91.81 History of falling
CPT/HCPCS: 36415; 70450; 72125; 80048; 80076; 80320; 82550; 83735; 85025; 93005; 96360; 96361; 99285

== ENCOUNTER 2021-07-01 10:32 | Emergency (ER) | payer OTHER, MEDICARE, MEDICAID, SELFPAY ==
--- NOTE | ~2021-07-01 | CT_ITS ---
EXAMINATION: CT BRAIN AND CT CERVICAL SPINE WITHOUT CONTRAST. CLINICAL INFORMATION: Fall with laceration to front of the head COMPARISON: None TECHNIQUE: 5 mm thin axial and reformatted 2 mm thin sagittal and coronal images of brain were obtained without contrast. Subsequently axial 3 mm thin and reformatted 2 mm thin sagittal and coronal images of cervical spine were obtained. DLP 1029. FINDINGS: Brain: There is no acute intra-axial, extra-axial bleed, masses, collection or midline shift. There is no acute infarction in evolution. The tellez to white matter differentiation is maintained normal. The lateral ventricles are enlarged and so are the cortical sulci. There is mild periventricular hypodensity in both cerebral hemispheres. Bone windows reveal no calvarial abnormality. There are surgical ulises along the left frontal scalp with soft tissue swelling. The paranasal sinuses and mastoid air cells are well-aerated with mild mucoperiosteal thickening bilateral paranasal sinuses. Cervical spine: There is normal cervical lordosis. There is grade 1 anterolisthesis C4 over C5. Rest of the vertebral alignment is normal. There is loss of C5-C6 disc height with ventral and posterior spondylosis. Rest the disc heights are normal. No visible acute fracture, dislocation or lytic process seen. The craniovertebral junction and the C1-C2 alignment is normal. There is mild right C2-C3, C3-C4, C4-C5 facet joint arthropathy. No visible acute fracture, dislocation or subluxation seen. The pharyngeal and the laryngeal chronic airway is widely patent. Emphysema with bullous changes are seen bilaterally worse on the right side. The prevertebral and paravertebral soft tissues are normal. CT/CT cervical spine wo con IMPRESSION: No acute intracranial process seen. The left parietal scalp laceration and ulises with no visible calvarial fracture. There is grade 1 anterolisthesis C4-C5 with moderate degenerative changes and spondylosis C5-C6 disc level. No visible acute fracture or dislocation seen. Diffuse emphysema with bullous changes in both upper lobes.
--- NOTE | ~2021-07-01 | XR_ITS ---
EXAMINATION: XR CHEST CLINICAL INFORMATION: Fall. COMPARISON: Most recent chest radiographs dated 07/05/2019. TECHNIQUE: Frontal view of the chest was obtained. FINDINGS: Hyperexpansion of the lungs, consistent with COPD. No focal airspace consolidation. No pleural effusion or pneumothorax. Stable cardiac mediastinal silhouette. XR/XR chest 1V IMPRESSION: No acute cardiopulmonary findings. Findings consistent with chronic COPD.
--- NOTE | 2021-07-01 10:38 | ECG_ITS ---
Test Reason : FALL Blood Pressure : / mmHG Vent. Rate : 097 BPM Atrial Rate : 097 BPM P-R Int : 130 ms QRS Dur : 080 ms QT Int : 378 ms P-R-T Axes : 075 052 078 degrees QTc Int : 480 ms Normal sinus rhythm Minimal voltage criteria for LVH, may be normal variant Prolonged QT Abnormal ECG When compared with ECG of 27-FEB-2021 11:13, No significant change was found Referred By: Aubrie Gomes Electronically Signed By:GOVIND ARRIETA
--- NOTE | 2021-07-01 10:42 | ED.FALL ---
HPI - Fall General Chief Complaint: Fall Stated Complaint: fall Time Seen by Provider: 07/01/21 10:38 Source: patient and EMS Mode of arrival: EMS Limitations: other (poor historian) History of Present Illness MD complaint: fall and other (not completely sure - was seen stumbling on a neighbor's ring camera then found down by brother covered in blood with head wound) Onset (ago): unknown Fall from: standing Fall witnessed: no Place fall occurred: street Loss of consciousness: unsure Prolonged down time: unclear Symptoms prior to fall: dizziness Context: alcohol use Location of injury: head Severity: moderate Associated symptoms (after fall): denies Related Data Allergies Allergy/AdvReac Type Severity Reaction Status Date / Time lisinopril [LISINOPRIL] Allergy Intermediate ANGIOEDEMA Unverified 07/31/20 14:44 codeine [CODEINE] AdvReac Mild NAUSEA & Unverified 07/31/20 14:44 VOMITING Review of Systems Review of Systems: ROS unable to be obtained due to poor cooperation [facility] Past Medical History Attestation statement: The following information was validated with the patient. Medical History Alcohol abuse Diabetes Hypertension Surgical History No history of previous surgery Social History Social History (Updated 07/01/21 @ 10:45 by Aubrie Gomes DO) Alcohol intake: current Alcohol intake frequency: 3 or more drinks per day Alcohol type: beer Patient Tobacco Use Status: Current everyday Tobacco user Use of substances other than those prescribed or required for medical reasons: No Advance Directives: Yes Advance Directives Information Provided: Yes Advance Directives on File: No Physical Exam Vital Signs: Vital Signs: Last Vital Signs Pulse 93 07/01/21 12:11 Resp 18 07/01/21 12:11 BP 168/92 H 07/01/21 12:11 Pulse Ox 97 07/01/21 11:16 Body Mass Index 19.9 Appearance: Alert. Oriented X3. Anxious mild acute distress. Tremulous Eyes: Pupils equal, round and reactive to light. ENT: Pharynx normal. matted hair and contusion to L forehead - dried blood covering face, neck, hands, chest - 4cm stellate laceration with large contusion Neck: cervical collar in place CVS: Normal heart rate and rhythm. Pulses normal. Respiratory: No respiratory distress. Breath sounds normal. Abdomen: Soft and non-tender. Skin: Skin warm and dry. Normal skin color. Normal skin turgor. Extremities: No lower extremity edema. No calf ttp Neuro: Oriented X 3. No motor deficit. No sensory deficit. Course Course Course Narrative: GCS 15 patient feels better, doesn't want to stay , will repeat troponin and contact brother troponin did increase but no CP/SOB not in ischemic range not consistent with ACS patient doesn't want to stay GCS 15, ambulated around the room no dizziness, steady gait Procedures Laceration Laceration 1: Site: scalp Side (If applicable): left Size (cm): 4 Description: stellate, irregular and contaminated Depth: simple, single layer Local Anesthetic: lidocaine 1% and with epi Amount of anesthesia used (mL): 5 Pre-repair: wound explored, irrigated extensively and extensive debridement Skin layer closed with: other (7 robert) MDM - Fall MDM Narrative Medical decision making narrative: 60 yo male with hx of HTN, ETOH abuse found down - has head injury with bleeding wound no other trauma noted, states he was dizzy, denies prior ETOH withdrawal seizures - at this time labs, CT head/neck for trauma ordered, IVF, possible IV ativan for withdrawal given tremors, Tdap, wound repair, dispo per results and findings. Lab Data Result diagrams: 07/01/21 12:07/01/21 12: Labs: Lab Results 07/01/21 07/01/21 07/01/21 Range/Units 12:01 12:01 12:01 WBC 9.2 (4.8-10.8) X10*3/uL RBC 3.85 L (4.60-5.80) X10*6/uL Hgb 13.5 L (14.0-18.0) g/dl Hct 38.8 L (42-52) % MCV 100.8 H (80-98) fL MCH 35.1 H (27.0-33.0) pg MCHC 34.8 (31.0-36.0) g/dl RDW 12.6 (11.0-16.0) % Plt Count 132 L (160-400) X10*3/uL MPV 10.5 (9.4-12.4) fL Immature Gran % (Auto) 0.5 H (0.0-0.4) % Neut % (Auto) 87.9 H (45-73) % Lymph % (Auto) 5.9 L (20-40) % [place] % (Auto) 5.2 (2-11) % Eos % (Auto) 0.2 (0-4) % Baso % (Auto) 0.3 (0-2) % Lymph # (Auto) 0.5 L (1.2-4.9) X10*3/uL [place] # (Auto) 0.5 (0.1-1.2) X10*3/uL Eos # (Auto) 0.0 (0.0-0.4) X10*3/uL Baso # (Auto) 0.0 (0.0-0.2) X10*3/uL Abs Immat Gran (auto) 0.05 H (0.00-0.03) X10*3/uL Absolute Neuts (auto) 8.1 (2.0-8.3) X10*3/uL Absolute Nucleated RBC 0.000 (0.0-0.012) X10*3/uL Nucleated RBC % (auto) 0.0 (0.0-0.2) /100WBC Smear Tech's Comments Not Reportable PT (9.9-13.0) SEC INR (0.9-1.1) APTT (24.1-38.0) SEC Sodium 137 (135-145) mmol/L Potassium 3.9 (3.3-5.1) mmol/L Chloride 101 (96-108) mmol/L Carbon Dioxide 22 (22-29) mmol/L Anion Gap 18 (12-20) BUN 11 (9-16) mg/dL Creatinine 0.93 (0.5-1.4) mg/dL Estim Creat Clear Calc 74.9 Estimated GFR > 60 Random Glucose 127 H D (60-115) mg/dL Calcium 8.5 D (8.4-10.2) mg/dL Magnesium (1.6-2.6) mg/dL Total Bilirubin (0.0-1.0) mg/dL Direct Bilirubin (0.0-0.5) mg/dL AST (5-37) U/L ALT (0-40) U/L Alkaline Phosphatase (39-117) U/L Total Creatine Kinase 231 H (38-174) U/L Troponin I High Sens (<3.5-35.0) ng/L Total Protein (6.5-8.0) g/dL Albumin (3.5-5.0) g/dL Urine Color Urine Appearance Urine pH (5.0-8.0) Ur Specific [place] (1.005-1.025) Urine Protein (NEG-TRACE) MG/DL Urine Glucose (UA) (NEG) MG/DL Urine Ketones (NEG) MG/DL Urine Blood (NEG) Urine Nitrite (NEG) Ur Leukocyte Esterase (NEG) Urine RBC (0) /HPF Urine WBC (0-4) /HPF Ur Squamous Epith Cells /LPF Urine Bacteria /LPF Hyaline Casts /LPF Urine Opiates Screen (Not Detect) Ur Barbiturates Screen (Not Detect) Ur Phencyclidine Scrn (Not Detect) Ur Amphetamines Screen (Not Detect) U Benzodiazepines Scrn (Not Detect) Urine Cocaine Screen (Not Detect) U Marijuana (THC) Screen (Not Detect) Ethyl Alcohol mg/dL COVID-19 (COLLEEN) Negative (Negative) COVID-19 Clin Com See Note 07/01/21 07/01/21 07/01/21 Range/Units 12:01 12:01 12:01 WBC (4.8-10.8) X10*3/uL RBC (4.60-5.80) X10*6/uL Hgb (14.0-18.0) g/dl Hct (42-52) % MCV (80-98) fL MCH (27.0-33.0) pg MCHC (31.0-36.0) g/dl RDW (11.0-16.0) % Plt Count (160-400) X10*3/uL MPV (9.4-12.4) fL Immature Gran % (Auto) (0.0-0.4) % Neut % (Auto) (45-73) % Lymph % (Auto) (20-40) % [place] % (Auto) (2-11) % Eos % (Auto) (0-4) % Baso % (Auto) (0-2) % Lymph # (Auto) (1.2-4.9) X10*3/uL [place] # (Auto) (0.1-1.2) X10*3/uL Eos # (Auto) (0.0-0.4) X10*3/uL Baso # (Auto) (0.0-0.2) X10*3/uL Abs Immat Gran (auto) (0.00-0.03) X10*3/uL Absolute Neuts (auto) (2.0-8.3) X10*3/uL Absolute Nucleated RBC (0.0-0.012) X10*3/uL Nucleated RBC % (auto) (0.0-0.2) /100WBC Smear Tech's Comments PT 11.3 (9.9-13.0) SEC INR 1.0 (0.9-1.1) APTT 30.3 (24.1-38.0) SEC Sodium (135-145) mmol/L Potassium (3.3-5.1) mmol/L Chloride (96-108) mmol/L Carbon Dioxide (22-29) mmol/L Anion Gap (12-20) BUN (9-16) mg/dL Creatinine (0.5-1.4) mg/dL Estim Creat Clear Calc Estimated GFR Random Glucose (60-115) mg/dL Calcium (8.4-10.2) mg/dL Magnesium 2.0 (1.6-2.6) mg/dL Total Bilirubin 1.8 H (0.0-1.0) mg/dL Direct Bilirubin 0.7 H (0.0-0.5) mg/dL AST 48 H D (5-37) U/L ALT 40 (0-40) U/L Alkaline Phosphatase 58 (39-117) U/L Total Creatine Kinase (38-174) U/L Troponin I High Sens (<3.5-35.0) ng/L Total Protein 6.8 (6.5-8.0) g/dL Albumin 4.2 (3.5-5.0) g/dL Urine Color Urine Appearance Urine pH (5.0-8.0) Ur Specific [place] (1.005-1.025) Urine Protein (NEG-TRACE) MG/DL Urine Glucose (UA) (NEG) MG/DL Urine Ketones (NEG) MG/DL Urine Blood (NEG) Urine Nitrite (NEG) Ur Leukocyte Esterase (NEG) Urine RBC (0) /HPF Urine WBC (0-4) /HPF Ur Squamous Epith Cells /LPF Urine Bacteria /LPF Hyaline Casts /LPF Urine Opiates Screen (Not Detect) Ur Barbiturates Screen (Not Detect) Ur Phencyclidine Scrn (Not Detect) Ur Amphetamines Screen (Not Detect) U Benzodiazepines Scrn (Not Detect) Urine Cocaine Screen (Not Detect) U Marijuana (THC) Screen (Not Detect) Ethyl Alcohol < 10 mg/dL COVID-19 (COLLEEN) (Negative) COVID-19 Clin Com 07/01/21 07/01/21 07/01/21 Range/Units 12:01 13:52 13:52 WBC (4.8-10.8) X10*3/uL RBC (4.60-5.80) X10*6/uL Hgb (14.0-18.0) g/dl Hct (42-52) % MCV (80-98) fL MCH (27.0-33.0) pg MCHC (31.0-36.0) g/dl RDW (11.0-16.0) % Plt Count (160-400) X10*3/uL MPV (9.4-12.4) fL Immature Gran % (Auto) (0.0-0.4) % Neut % (Auto) (45-73) % Lymph % (Auto) (20-40) % [place] % (Auto) (2-11) % Eos % (Auto) (0-4) % Baso % (Auto) (0-2) % Lymph # (Auto) (1.2-4.9) X10*3/uL [place] # (Auto) (0.1-1.2) X10*3/uL Eos # (Auto) (0.0-0.4) X10*3/uL Baso # (Auto) (0.0-0.2) X10*3/uL Abs Immat Gran (auto) (0.00-0.03) X10*3/uL Absolute Neuts (auto) (2.0-8.3) X10*3/uL Absolute Nucleated RBC (0.0-0.012) X10*3/uL Nucleated RBC % (auto) (0.0-0.2) /100WBC Smear Tech's Comments PT (9.9-13.0) SEC INR (0.9-1.1) APTT (24.1-38.0) SEC Sodium (135-145) mmol/L Potassium (3.3-5.1) mmol/L Chloride (96-108) mmol/L Carbon Dioxide (22-29) mmol/L Anion Gap (12-20) BUN (9-16) mg/dL Creatinine (0.5-1.4) mg/dL Estim Creat Clear Calc Estimated GFR Random Glucose (60-115) mg/dL Calcium (8.4-10.2) mg/dL Magnesium (1.6-2.6) mg/dL Total Bilirubin (0.0-1.0) mg/dL Direct Bilirubin (0.0-0.5) mg/dL AST (5-37) U/L ALT (0-40) U/L Alkaline Phosphatase (39-117) U/L Total Creatine Kinase (38-174) U/L Troponin I High Sens 11.3 (<3.5-35.0) ng/L Total Protein (6.5-8.0) g/dL Albumin (3.5-5.0) g/dL Urine Color YELLOW Urine Appearance CLEAR Urine pH 6.0 (5.0-8.0) Ur Specific [place] 1.025 (1.005-1.025) Urine Protein 1+ H (NEG-TRACE) MG/DL Urine Glucose (UA) NEG (NEG) MG/DL Urine Ketones 15 (NEG) MG/DL Urine Blood TRACE (NEG) Urine Nitrite NEG (NEG) Ur Leukocyte Esterase NEG (NEG) Urine RBC 1-4 (0) /HPF Urine WBC 0-2 (0-4) /HPF Ur Squamous Epith Cells TRACE /LPF Urine Bacteria NONE /LPF Hyaline Casts 0-2 /LPF Urine Opiates Screen Not Detected (Not Detect) Ur Barbiturates Screen Not Detected (Not Detect) Ur Phencyclidine Scrn Not Detected (Not Detect) Ur Amphetamines Screen Not Detected (Not Detect) U Benzodiazepines Scrn Not Detected (Not Detect) Urine Cocaine Screen Not Detected (Not Detect) U Marijuana (THC) Screen Not Detected (Not Detect) Ethyl Alcohol mg/dL COVID-19 (COLLEEN) (Negative) COVID-19 Clin Com 07/01/21 Range/Units 13:57 WBC (4.8-10.8) X10*3/uL RBC (4.60-5.80) X10*6/uL Hgb (14.0-18.0) g/dl Hct (42-52) % MCV (80-98) fL MCH (27.0-33.0) pg MCHC (31.0-36.0) g/dl RDW (11.0-16.0) % Plt Count (160-400) X10*3/uL MPV (9.4-12.4) fL Immature Gran % (Auto) (0.0-0.4) % Neut % (Auto) (45-73) % Lymph % (Auto) (20-40) % [place] % (Auto) (2-11) % Eos % (Auto) (0-4) % Baso % (Auto) (0-2) % Lymph # (Auto) (1.2-4.9) X10*3/uL [place] # (Auto) (0.1-1.2) X10*3/uL Eos # (Auto) (0.0-0.4) X10*3/uL Baso # (Auto) (0.0-0.2) X10*3/uL Abs Immat Gran (auto) (0.00-0.03) X10*3/uL Absolute Neuts (auto) (2.0-8.3) X10*3/uL Absolute Nucleated RBC (0.0-0.012) X10*3/uL Nucleated RBC % (auto) (0.0-0.2) /100WBC Smear Tech's Comments PT (9.9-13.0) SEC INR (0.9-1.1) APTT (24.1-38.0) SEC Sodium (135-145) mmol/L Potassium (3.3-5.1) mmol/L Chloride (96-108) mmol/L Carbon Dioxide (22-29) mmol/L Anion Gap (12-20) BUN (9-16) mg/dL Creatinine (0.5-1.4) mg/dL Estim Creat Clear Calc Estimated GFR Random Glucose (60-115) mg/dL Calcium (8.4-10.2) mg/dL Magnesium (1.6-2.6) mg/dL Total Bilirubin (0.0-1.0) mg/dL Direct Bilirubin (0.0-0.5) mg/dL AST (5-37) U/L ALT (0-40) U/L Alkaline Phosphatase (39-117) U/L Total Creatine Kinase (38-174) U/L Troponin I High Sens 18.2 D (<3.5-35.0) ng/L Total Protein (6.5-8.0) g/dL Albumin (3.5-5.0) g/dL Urine Color Urine Appearance Urine pH (5.0-8.0) Ur Specific [place] (1.005-1.025) Urine Protein (NEG-TRACE) MG/DL Urine Glucose (UA) (NEG) MG/DL Urine Ketones (NEG) MG/DL Urine Blood (NEG) Urine Nitrite (NEG) Ur Leukocyte Esterase (NEG) Urine RBC (0) /HPF Urine WBC (0-4) /HPF Ur Squamous Epith Cells /LPF Urine Bacteria /LPF Hyaline Casts /LPF Urine Opiates Screen (Not Detect) Ur Barbiturates Screen (Not Detect) Ur Phencyclidine Scrn (Not Detect) Ur Amphetamines Screen (Not Detect) U Benzodiazepines Scrn (Not Detect) Urine Cocaine Screen (Not Detect) U Marijuana (THC) Screen (Not Detect) Ethyl Alcohol mg/dL COVID-19 (COLLEEN) (Negative) COVID-19 Clin Com ECG Data Attestation: I personally reviewed and interpreted this ECG as follows: ECG interpretation date: 07/01/21 ECG interpretation time: 11:24 Interpretation: Rate: 97 Rhythm: NSR [place]: normal . LVH Normal P waves. Normal [place]. Normal QRS complex. ST T wave : normal no VALENTÍN qTC: prolonged prior studies: no acute ischemia The study has been interpreted contemporaneously by me. . Discharge Plan Discharge Clinical Impression: Head injury, Fall, Laceration Patient Disposition: Home, Self-Care Instructions: Head Injury (ED), Head Laceration (ED) Additional Instructions: return to ED for any worsening symptoms or concerns STAY WITH RESPONSIBLE ADULT ROBERT COME OUT IN 10 DAYS AT ANY URGENT CARE CENTER OR EMERGENCY DEPARTMENT IT IS OKAY TO TAKE A SHOWER BUT NO OKAY TO SWIM IN A POOL/BECKER/OCEAN UNTIL REMOVED YOU WERE OFFERED ADMISSION BUT DECIDED NOT TO STAY GIVEN WE DO NOT KNOW WHAT HAPPENED PRIOR TO COMING TO THE EMERGENCY DEPARTMENT Stand Alone Forms: Work/School Release
[2021-07-01 10:47] VITALS: BP 160/100; BP 172/103; PULSE 100; PULSE 120; RESP 20; O2SAT 96; O2SAT 97; BMI 19.9
[2021-07-01] MEDS: 0.9 % Sodium Chloride 1,000 ML 999 ML IVCONT (11:09)
[2021-07-01] MEDS: LORazepam 2 MG/ML VIAL 1 MG IVPUSH (11:09)
[2021-07-01] MEDS: ondansetron HCL 4 MG/2 ML VIAL IVPUSH (11:09)
[2021-07-01] MEDS: Lidocaine HCl 2% PF/Epi 1:200 20 ML VIAL INFILTRATI (11:15)
[2021-07-01 11:16] VITALS: PULSE 93; RESP 20; O2SAT 97
--- NOTE | 2021-07-01 11:43 | PC.NURSE ---
pt alert and oriented, skin appropriate for ethnicity, dry blood all over the hands/face/chest, large bleeding hematoma to the left front of the scalp, pt is a daily drinker according to the pt last drink was yesterday, slight hand tremor noticed, ns on the monitor, c-chano in place. aubrey munroe [phone]
[2021-07-01] MEDS: Diphth,Pertus(ACell),Tet Adult 0.5 ML SYRINGE IM (12:04)
[2021-07-01] MEDS: Thiamine HCL 200 MG/2 ML VIAL 100 MG IVPUSH (12:04)
[2021-07-01] MEDS: Magnesium Sulfate/H2O 2 GM/50 ML PIGGYBACK IV (12:05)
[2021-07-01 12:11] VITALS: BP 168/92; PULSE 93; RESP 18
[2021-07-01 12:22] LABS: MANUAL DIFF FLAG SCAN; Mean Corpuscular Volume 100.8 fL (80-98); PLT CLUMP 1; SCAN SMEAR FLAG 1
[2021-07-01 12:24] LABS: Basophils Percent Auto 0.3 % (0-2); Eosinophils Percent Auto 0.2 % (0-4); Hematocrit 38.8 % (42-52); Hemoglobin 13.5 g/dl (14.0-18.0); Imm Gran Abs Auto 0.05 X10*3/uL (0.00-0.03); Imm Gran Pct Auto 0.5 % (0.0-0.4); Lymphocytes Absolute Auto 0.5 X10*3/uL (1.2-4.9); Lymphocytes Percent Auto 5.9 % (20-40); Mean Corpuscular HGB Conc 34.8 g/dl (31.0-36.0); Mean Corpuscular Hemoglobin 35.1 pg (27.0-33.0); Mean Platelet Volume 10.5 fL (9.4-12.4); Monocytes Absolute Auto 0.5 X10*3/uL (0.1-1.2); Monocytes Percent Auto 5.2 % (2-11); Neutrophils Absolute Auto 8.1 X10*3/uL (2.0-8.3); Neutrophils Percent Auto 87.9 % (45-73); Platelet Count 132 X10*3/uL (160-400); Red Blood Count 3.85 X10*6/uL (4.60-5.80); Red Cell Distribution Width 12.6 % (11.0-16.0); White Blood Count 9.2 X10*3/uL (4.8-10.8)
[2021-07-01 12:32] LABS: Prothrombin Time 11.3 SEC (9.9-13.0)
[2021-07-01 12:35] LABS: Partial Thromboplastin Time 30.3 SEC (24.1-38.0)
[2021-07-01 12:38] LABS: COVID-19 Test Negative (Negative)
[2021-07-01 12:46] LABS: Ethanol < 10 mg/dL
[2021-07-01 12:49] LABS: Alanine Aminotransferase 40 U/L (0-40); Albumin Level 4.2 g/dL (3.5-5.0); Alkaline Phosphatase 58 U/L (39-117); Aspartate Amino Transferase 48 U/L (5-37); Bilirubin Direct 0.7 mg/dL (0.0-0.5); Bilirubin Total 1.8 mg/dL (0.0-1.0); Total Protein 6.8 g/dL (6.5-8.0)
[2021-07-01 12:50] LABS: Anion Gap 18 (12-20); Blood Urea Nitrogen 11 mg/dL (9-16); Calcium 8.5 mg/dL (8.4-10.2); Carbon Dioxide 22 mmol/L (22-29); Chloride 101 mmol/L (96-108); Creatinine Clr Calc Pharmacy 74.9; Estimated Glomerular Filt Rate > 60; Glucose Random 127 mg/dL (60-115); Potassium 3.9 mmol/L (3.3-5.1); Sodium 137 mmol/L (135-145)
[2021-07-01 12:52] LABS: Troponin-I High Sensitivity 11.3 ng/L (<3.5-35.0)
[2021-07-01 14:18] LABS: Glucose Urine UA NEG (NEG); Leukocyte Esterase Urine NEG (NEG); Nitrite Urine NEG (NEG); Specific Gravity - Urine 1.025 (1.005-1.025); UACC Culture Trigger NO; Urine Blood TRACE (NEG); Urine Ketones 15 MG/DL (NEG); Urine Protein 1+ MG/DL (NEG-TRACE)
[2021-07-01 14:19] LABS: Appearance Urine CLEAR; Color Urine YELLOW
[2021-07-01 14:33] LABS: Hyaline Casts Urine 0-2 /LPF; Squamous Epithelial Cell Urine TRACE /LPF; WBC Urine 0-2 /HPF (0-4)
[2021-07-01 14:38] LABS: Troponin-I High Sensitivity 18.2 ng/L (<3.5-35.0)
[2021-07-01 15:46] VITALS: BP 160/87; PULSE 74; RESP 16; TEMP 36.3; O2SAT 97
[2021-07-01 19:13] LABS: Amphetamine Screen Urine Not Detected (Not Detect); Barbiturates, Urine Not Detected (Not Detect); Benzodiazepines Screen Urine Not Detected (Not Detect); Cannabinoid Screen Urine Not Detected (Not Detect); Cocaine Screen Urine Not Detected (Not Detect); Fentanyl, urine Not Detected (Not Detect); Opiate Screen Urine Not Detected (Not Detect); Phencyclidine Screen Urine Not Detected (Not Detect)
== END 2021-07-01 16:04 | disposition home or self-care (01) ==
PROVIDERS: Emergency Provider Emergency Medicine
DX: S01.01XA Laceration without foreign body of scalp, initial encounter (principal); G44.309 Post-traumatic headache, unspecified, not intractable; R42 Dizziness and giddiness; W01.10XA Fall on same level from slipping, tripping and stumbling with subsequent striking against unspecified object, initial encounter; Y93.9 Activity, unspecified; Y92.9 Unspecified place or not applicable; Y99.9 Unspecified external cause status; F17.200 Nicotine dependence, unspecified, uncomplicated; Z71.6 Tobacco abuse counseling; Z20.822 Contact with and (suspected) exposure to COVID-19; Z79.899 Other long term (current) drug therapy
CPT/HCPCS: 12002; 36415; 70450; 71045; 72125; 80048; 80076; 80307; 81001; 82077; 82550; 83735; 84484; 85025; 85610; 85730; 87635; 90715; 93005; 96361; 96365; 96366; 96375; 99284; J2060; J2405; J3411; J3475

== ENCOUNTER 2021-07-15 09:21 | Emergency (ER) | payer OTHER, MEDICARE, MEDICAID, SELFPAY ==
[2021-07-15 09:48] VITALS: BP 189/94; PULSE 72; RESP 16; TEMP 37; O2SAT 100; BMI 19.9
--- NOTE | 2021-07-15 09:51 | ED.GENADULT ---
HPI - General Adult General Chief complaint: Wound/Laceration Stated complaint: suture removal Time Seen by Provider: 07/15/21 09:51 Source: patient Limitations: no limitations History of Present Illness HPI narrative: Patient returns for staple removal of the scalp. Patient is without complaints at this time. Patient also requesting refill of his metoprolol for hypertension has a PCP appointment in mid September. Patient denies headache nausea vomiting chest pain shortness of breath no other complaints at this time. Related Data Previous Rx's Medication Instructions Recorded metoprolol succinate 50 mg 50 mg PO BID #60 tab 07/15/21 tablet,extended release 24 hr Allergies Allergy/AdvReac Type Severity Reaction Status Date / Time lisinopril [LISINOPRIL] Allergy Intermediate ANGIOEDEMA Unverified 07/31/20 14:44 codeine [CODEINE] AdvReac Mild NAUSEA & Unverified 07/31/20 14:44 VOMITING Review of Systems Constitutional: Constitutional: Reports as per HPI, Denies body ache(s), Denies chills and Denies fever(s) Eyes: Eyes: Denies diplopia Cardiovascular: Cardiovascular: Denies chest pain, Denies chest pain with activity and Denies dyspnea Respiratory: Respiratory: Denies dyspnea Gastrointestinal: Gastrointestinal: Denies diarrhea, Denies nausea and Denies vomiting Musculoskeletal: Musculoskeletal: Reports no additional musculoskeletal complaints Integumentary/Breasts: Skin/Breast: Reports system reviewed and no additional complaints, except as docu [facility] Past Medical History Attestation statement: The following information was validated with the patient. Medical History Alcohol abuse Diabetes Hypertension Surgical History No history of previous surgery Social History Social History Alcohol intake: current Alcohol intake frequency: 3 or more drinks per day Alcohol type: beer Patient Tobacco Use Status: Current everyday Tobacco user Advance Directives: No Advance Directives Information Provided: No Physical Exam Vital Signs: Vital Signs: Last Vital Signs Temp 98.6 F 07/15/21 09:48 Pulse 72 07/15/21 09:48 Resp 16 07/15/21 09:48 BP 189/94 H 07/15/21 09:48 Pulse Ox 100 07/15/21 09:48 Body Mass Index 19.9 vital signs have been reviewed as normal and appeared to be correct. Blood pressure normal. Heart rate normal. Respiration rate normal. Temperature normal. Oxygen saturation normal. Appearance: Alert. Oriented X3. No acute distress. Head: Normal external exam. Normocephalic. Atraumatic. Approximately 7 ulises noted in the scalp. Eyes: PERRLA. EOMI. Conjunctiva and sclera normal. Eyelids normal. ENT: Pharynx normal. Uvula midline. Moist mucous membranes. No trismus noted. No drooling noted. No muffled voice noted. Neck: Soft full range of motion, no JVD CVS: Heart regular rate and rhythm no murmurs and rubs Respiratory: Breath sounds are clear to auscultation bilaterally. No accessory muscle use noted. Back: Full range of motion noted. Skin: Skin warm and dry. Normal skin color. Normal skin turgor. Skin ulises noted in the scalp Extremities: No lower extremity edema. Extremities exhibit normal range of motion. Extremities nontender. Neuro: Oriented X 3. No motor deficit. No sensory deficit. Reflexes normal. Course Course Course Narrative: Skin staple removal Wound check Hypertension medication refill Ulises removed tolerated well no wound dehiscence healed well healing wound noted. Will refill metoprolol 50 mg b.i.d. at this time. Discharge Plan Discharge Clinical Impression: Laceration, Hypertension, Medication refill Patient Disposition: Home, Self-Care Instructions: Laceration (ED) Additional Instructions: Close follow-up with PCP is recommended. Prescriptions: New metoprolol succinate 50 mg tablet extended release 24 hr 50 mg PO BID Qty: 60 RF: 0
== END 2021-07-15 10:14 | disposition home or self-care (01) ==
PROVIDERS: Emergency Provider Emergency Medicine; PCP Internal Medicine
DX: Z48.02 Encounter for removal of sutures (principal); S01.01XD Laceration without foreign body of scalp, subsequent encounter; X58.XXXD Exposure to other specified factors, subsequent encounter; I10 Essential (primary) hypertension; Z76.0 Encounter for issue of repeat prescription
CPT/HCPCS: 99283

== ENCOUNTER 2022-04-03 02:26 | Inpatient (IN) | payer OTHER, MEDICARE, MEDICAID, SELFPAY ==
[2022-04-03] VITALS (13 sets, daily range): BP systolic 131–193; BP diastolic 80–111; PULSE 78–109; RESP 16–22; TEMP 36.6–37.4; O2SAT 96–100; BMI 19.2
--- NOTE | ~2022-04-03 | XR_ITS ---
EXAMINATION: XR CHEST CLINICAL INFORMATION: Cough COMPARISON: 07/01/2021 TECHNIQUE: Frontal view of the chest was obtained. FINDINGS: Hyperexpanded lungs. Appearance suggestive of emphysema. No consolidation. No effusion. No pneumothorax. The cardiomediastinal silhouette is within normal limits. XR/XR chest 1V IMPRESSION: Appearance suggestive of emphysema. No consolidation.
--- NOTE | ~2022-04-03 | CT_ITS ---
EXAMINATION: CT HEAD WITHOUT CONTRAST CLINICAL INFORMATION: History of fall. COMPARISON: CT of the head done on 07/01/2021. TECHNIQUE: Contiguous axial imaging was performed from the skull base to vertex without intravenous administration of contrast. This CT examination was performed using dose optimization techniques as appropriate, variously including the following: *Automated exposure control *Adjustment of mA and/or kV according to patient size (this includes techniques or standardized protocols for targeted exams where dose is matched to indication/reason for exam; i.e. extremities or head) *Use of iterative reconstruction technique DLP: 1127 mGy-cm FINDINGS: There is no evidence of acute intracranial hemorrhage or territorial infarction. No abnormal mass effect or midline shift is seen. Lucio to white matter differentiation is well preserved. No extra-axial fluid collections are identified. The ventricles are normal in size. There is no abnormal attenuation within the brain parenchyma. The osseous structures and soft tissues are normal. The mastoid air cells and visualized portions of the paranasal sinuses are well aerated. CT/CT head/brain wo con IMPRESSION: No acute intracranial pathology. No significant change since 07/01/2021.
--- NOTE | 2022-04-03 03:10 | ED.EXTPRO ---
HPI - Extremity Problem General Chief complaint: Extremity Problem Stated complaint: Leg/ feet pain, nausea Time Seen by Provider: 04/03/22 02:59 Source: patient Mode of arrival: ambulatory Limitations: no limitations History of Present Illness HPI Narrative: c/o being homeless and his feet hurt from walking, last drank yesterday, fell two weeks ago and hit R eyebrow on curb Complaint: other Onset (ago): week(s) Pain Consistency: constant Location: left, right, lower extremity and other (feet) Quality: aching, dull and constant Radiation: none Relieving factors: nothing Exacerbating factors: walking Associated symptoms: denies other symptoms Context: other (homeless, poor foot care, wet outside) Related Data Previous Rx's Medication Instructions Recorded metoprolol succinate 50 mg 50 mg PO BID #60 tab 07/15/21 tablet,extended release 24 hr Allergies Allergy/AdvReac Type Severity Reaction Status Date / Time lisinopril [LISINOPRIL] Allergy Intermediate ANGIOEDEMA Verified 04/03/22 02:47 codeine [CODEINE] AdvReac Mild NAUSEA & Verified 04/03/22 02:47 VOMITING Review of Systems Review of Systems: Constitutional : No Fever, No Chills ENT/Mouth : No Ear Pain, No Hoarseness, No sore throat Eyes: No Eye Pain, No Swelling, No Redness, No Foreign Body Cardiovascular : No Chest Pain, No SOB Respiratory : No Cough, No Dyspnea Gastrointestinal : No Nausea, No Vomiting, No Diarrhea, No abdominal Pain Genitourinary : No Dysuria, No Hematuria Musculoskeletal : no joint pain, No Myalgias, No Joint Swelling, pos foot pain Skin : No Skin lacerations, No rash Neuro : No Weakness, No Numbness, No Loss of Consciousness, No Dizziness, No Headache Psych : No Anxiety/Panic, No Depression Heme/Lymph: no easy bruising, no Lymphadenopathy Endocrine : No Polyuria, No Polydipsia All other systems reviewed and are negative [facility] Past Medical History Attestation statement: The following information was validated with the patient. Medical History Alcohol abuse Diabetes Hypertension Surgical History No history of previous surgery Social History Social History Alcohol intake: current Alcohol intake frequency: 3 or more drinks per day Alcohol type: beer Patient Tobacco Use Status: Current everyday Tobacco user Advance Directives: No Advance Directives Information Provided: Yes Physical Exam Vital Signs: Vital Signs: Last Vital Signs Temp 97.8 F 04/03/22 02:47 Pulse 78 04/03/22 02:47 Resp 18 04/03/22 02:47 BP 169/91 H 04/03/22 02:47 Pulse Ox 100 04/03/22 02:47 BMI result Body Mass Index 19.2 Appearance: Alert. Oriented X3. No acute distress. disheveled Eyes: Pupils equal, round and reactive to light. ENT: Pharynx normal. old appearing bruise r eyebrow Neck: Normal inspection. Neck supple. CVS: Normal heart rate and rhythm. Pulses normal. Respiratory: No respiratory distress. Breath sounds normal. Abdomen: Soft and non-tender. Rectal: dark stool noted Skin: Skin warm and dry. Normal skin color. Normal skin turgor. Extremities: No lower extremity edema. both feet dry calloused no signs of infection, nails unkempt, feet slightly macerated but no gangrene NV intact Neuro: Oriented X 3. No motor deficit. No sensory deficit. mildly tremulous Course Course Course Narrative: patient anemic now when pressed he admits to 2 weeks of black stools not on blood thinners denies ASA MDM - Extremity (Nontraumatic) MDM Narrative Medical decision making narrative: 61 yo male with hx of alcoholism, ETOH abuse, DM here with c/o feet pain due to walking outside exposure and being homeless he is NV intact no signs of infection will obtain basic labs, has mild cough, mild tremors - thiamine and PO ativan ordered. He is refusing rehab for his ETOH at this time. Lab Data Result diagrams: 04/03/22 03:54 04/03/22 03:54 Labs: Lab Results 04/03/22 04/03/22 04/03/22 Range/Units 03:54 03:54 03:54 WBC 8.6 (4.8-10.8) X10*3/uL RBC 2.34 L (4.60-5.80) X10*6/uL Hgb 7.6 L (14.0-18.0) g/dl Hct 22.9 L (42.0-52.0) % MCV 97.9 (80.0-98.0) fL MCH 32.5 (27.0-33.0) pg MCHC 33.2 (31.0-36.0) g/dl RDW 15.9 (11.0-16.0) % Plt Count 167 (160-400) X10*3/uL MPV 9.4 (9.4-12.4) fL Immature Gran % (Auto) 1.2 H (0.0-0.4) % Neut % (Auto) 76.9 H (45-73) % Lymph % (Auto) 12.4 L (20-40) % [place] % (Auto) 8.5 (2-11) % Eos % (Auto) 0.6 (0-4) % Baso % (Auto) 0.4 (0-2) % Lymph # (Auto) 1.1 L (1.2-4.9) X10*3/uL [place] # (Auto) 0.7 (0.1-1.2) X10*3/uL Eos # (Auto) 0.1 (0.0-0.4) X10*3/uL Baso # (Auto) 0.0 (0.0-0.2) X10*3/uL Abs Immat Gran (auto) 0.10 H (0.00-0.03) X10*3/uL Absolute Neuts (auto) 6.6 (2.0-8.3) x10*3/uL Absolute Nucleated RBC 0.000 (0.0-0.012) X10*3/uL Nucleated RBC % (auto) 0.0 (0.0-0.2) /100WBC PT (9.9-13.0) SEC INR (0.9-1.1) APTT (24.1-38.0) SEC Sodium 135 (135-145) mmol/L Potassium 3.4 (3.3-5.1) mmol/L Chloride 99 (96-108) mmol/L Carbon Dioxide 25 (22-29) mmol/L Anion Gap 14 (12-20) BUN 5 L (9-16) mg/dL Creatinine 0.67 (0.5-1.4) mg/dL Estim Creat Clear Calc 99.0 Estimated GFR > 60 Random Glucose 98 (60-115) mg/dL Calcium 8.7 (8.4-10.2) mg/dL Magnesium 1.7 (1.6-2.6) mg/dL Total Bilirubin 0.5 (0.0-1.0) mg/dL Direct Bilirubin 0.2 (0.0-0.5) mg/dL AST 55 H (5-37) U/L ALT 32 (0-40) U/L Alkaline Phosphatase 86 D (39-117) U/L Total Protein 6.4 L (6.5-8.0) g/dL Albumin 3.5 (3.5-5.0) g/dL Stool Occult Blood (NEGATIVE) COVID-19 (COLLEEN) Negative (Negative) COVID-19 Clin Com See Note Blood Type Antibody Screen 04/03/22 04/03/22 04/03/22 Range/Units 04:21 04:21 04:52 WBC (4.8-10.8) X10*3/uL RBC (4.60-5.80) X10*6/uL Hgb (14.0-18.0) g/dl Hct (42.0-52.0) % MCV (80.0-98.0) fL MCH (27.0-33.0) pg MCHC (31.0-36.0) g/dl RDW (11.0-16.0) % Plt Count (160-400) X10*3/uL MPV (9.4-12.4) fL Immature Gran % (Auto) (0.0-0.4) % Neut % (Auto) (45-73) % Lymph % (Auto) (20-40) % [place] % (Auto) (2-11) % Eos % (Auto) (0-4) % Baso % (Auto) (0-2) % Lymph # (Auto) (1.2-4.9) X10*3/uL [place] # (Auto) (0.1-1.2) X10*3/uL Eos # (Auto) (0.0-0.4) X10*3/uL Baso # (Auto) (0.0-0.2) X10*3/uL Abs Immat Gran (auto) (0.00-0.03) X10*3/uL Absolute Neuts (auto) (2.0-8.3) x10*3/uL Absolute Nucleated RBC (0.0-0.012) X10*3/uL Nucleated RBC % (auto) (0.0-0.2) /100WBC PT 10.5 (9.9-13.0) SEC INR 0.9 (0.9-1.1) APTT 34.7 (24.1-38.0) SEC Sodium (135-145) mmol/L Potassium (3.3-5.1) mmol/L Chloride (96-108) mmol/L Carbon Dioxide (22-29) mmol/L Anion Gap (12-20) BUN (9-16) mg/dL Creatinine (0.5-1.4) mg/dL Estim Creat Clear Calc Estimated GFR Random Glucose (60-115) mg/dL Calcium (8.4-10.2) mg/dL Magnesium (1.6-2.6) mg/dL Total Bilirubin (0.0-1.0) mg/dL Direct Bilirubin (0.0-0.5) mg/dL AST (5-37) U/L ALT (0-40) U/L Alkaline Phosphatase (39-117) U/L Total Protein (6.5-8.0) g/dL Albumin (3.5-5.0) g/dL Stool Occult Blood POSITIVE (NEGATIVE) COVID-19 (COLLEEN) (Negative) COVID-19 Clin Com Blood Type A Negative Antibody Screen NEGATIVE ECG Data Attestation EKG: I personally reviewed and interpreted this ECG as follows: ECG interpretation date: 04/03/22 ECG interpretation time: 05:44 Interpretation: Rate: 93 Rhythm: NSR [place]: normal Normal P waves. Normal [place]. Normal QRS complex. ST T wave : non-specific no VALENTÍN qTC: prolonged prior studies: no acute ischemia The study has been interpreted contemporaneously by me. Discharge Plan Discharge Clinical Impression: Alcohol abuse Anemia Qualifiers: Anemia type: unspecified type Qualified Code(s): D64.9 - Anemia, unspecified GIB (gastrointestinal bleeding) Qualifiers: GI bleed type/associated pathology: melena Qualified Code(s): K92.1 - Melena Patient Disposition: Admitted As Inpatient
[2022-04-03] MEDS: Thiamine HCL 100 MG TABLET PO (03:26)
[2022-04-03] MEDS: LORazepam 1 MG TABLET 2 MG PO (03:27)
[2022-04-03 03:59] LABS: MANUAL DIFF FLAG NO
[2022-04-03 04:02] LABS: Basophils Percent Auto 0.4 % (0-2); Eosinophils Absolute Auto 0.1 X10*3/uL (0.0-0.4); Eosinophils Percent Auto 0.6 % (0-4); Hematocrit 22.9 % (42.0-52.0); Hemoglobin 7.6 g/dl (14.0-18.0); Imm Gran Pct Auto 1.2 % (0.0-0.4); Lymphocytes Absolute Auto 1.1 X10*3/uL (1.2-4.9); Lymphocytes Percent Auto 12.4 % (20-40); Mean Corpuscular HGB Conc 33.2 g/dl (31.0-36.0); Mean Corpuscular Hemoglobin 32.5 pg (27.0-33.0); Mean Corpuscular Volume 97.9 fL (80.0-98.0); Mean Platelet Volume 9.4 fL (9.4-12.4); Monocytes Absolute Auto 0.7 X10*3/uL (0.1-1.2); Monocytes Percent Auto 8.5 % (2-11); Neutrophils Absolute Auto 6.6 x10*3/uL (2.0-8.3); Neutrophils Percent Auto 76.9 % (45-73); Platelet Count 167 X10*3/uL (160-400); Red Blood Count 2.34 X10*6/uL (4.60-5.80); Red Cell Distribution Width 15.9 % (11.0-16.0); White Blood Count 8.6 X10*3/uL (4.8-10.8)
--- NOTE | 2022-04-03 04:08 | ECG_ITS ---
Test Reason : WEAKNESS Blood Pressure : / mmHG Vent. Rate : 093 BPM Atrial Rate : 093 BPM P-R Int : 138 ms QRS Dur : 082 ms QT Int : 412 ms P-R-T Axes : 075 064 073 degrees QTc Int : 512 ms Normal sinus rhythm Prolonged QT Abnormal ECG When compared with ECG of 01-JUL-2021 11:13, No significant change was found Referred By: Aubrie Gomes Electronically Signed By:SPRING DAVIDSON
[2022-04-03 04:18] LABS: Alanine Aminotransferase 32 U/L (0-40); Albumin Level 3.5 g/dL (3.5-5.0); Alkaline Phosphatase 86 U/L (39-117); Anion Gap 14 (12-20); Aspartate Amino Transferase 55 U/L (5-37); Bilirubin Direct 0.2 mg/dL (0.0-0.5); Bilirubin Total 0.5 mg/dL (0.0-1.0); Blood Urea Nitrogen 5 mg/dL (9-16); COVID-19 Test Negative (Negative); Calcium 8.7 mg/dL (8.4-10.2); Carbon Dioxide 25 mmol/L (22-29); Chloride 99 mmol/L (96-108); Estimated Glomerular Filt Rate > 60; Glucose Random 98 mg/dL (60-115); Magnesium 1.7 mg/dL (1.6-2.6); Potassium 3.4 mmol/L (3.3-5.1); Sodium 135 mmol/L (135-145); Total Protein 6.4 g/dL (6.5-8.0)
[2022-04-03 04:48] LABS: OBS Int Ctl Valid YES; OBS1 POSITIVE (NEGATIVE)
[2022-04-03 04:54] LABS: INTERNATIONAL NORM RATIO 0.9 (0.9-1.1); Prothrombin Time 10.5 SEC (9.9-13.0)
[2022-04-03 04:57] LABS: Partial Thromboplastin Time 34.7 SEC (24.1-38.0)
[2022-04-03] MEDS: Pantoprazole Sodium 40 MG/10 ML VIAL IVPUSH ×2 (04:58→17:22)
[2022-04-03] MEDS: Lactated Ringers 1,000 ML 999 ML IV (04:58)
[2022-04-03] MEDS: Pantoprazole Sodium 80 MG in 0.9 % Sodium Chloride 80 ML 10 MG IV (05:21)
[2022-04-03] MEDS: LORazepam 2 MG/ML VIAL 1 MG IVPUSH ×2 (06:08→06:46)
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
--- NOTE | 2022-04-03 09:58 | PHA.MEDREC ---
Pharmacy Consult ? Medication Reconciliation Pharmacy has completed the medication reconciliation. Unable to speak with patient. no recent claim history
[2022-04-03] MEDS: PHENobarbitaL 100 MG, PHENobarbitaL 30 MG, PHENobarbitaL 15 MG 145 MG PO ×2 (10:16→13:29)
[2022-04-03] MEDS: amLODIPine Besylate 5 MG TABLET PO ×2 (10:16→17:22)
[2022-04-03] MEDS: Lactated Ringers 1,000 ML 100 ML IVCONT (10:16)
[2022-04-03 10:31] LABS: Iron 37 mcg/dL (45-160); Percent Iron Saturation 14 % (15-50); Total Iron Binding Capacity 266 mcg/dL (228-428); Unsaturated Iron Binding 229 ug/dL
[2022-04-03 10:49] LABS: Estimated Average Glucose 88 mg/dL; Hemoglobin A1c % 4.7 %
[2022-04-03 10:51] LABS: Ferritin 66 ng/mL (20-250)
--- NOTE | 2022-04-03 13:28 | CONS_ITS ---
DATE OF SERVICE: 04/03/2022 REFERRING PHYSICIAN: SCOTT Ohara REASON FOR CONSULTATION: Anemia and Hemoccult-positive stools. HISTORY OF PRESENT ILLNESS: The patient is a 61-year-old man who was admitted to the hospital after presenting to the emergency room today with complaints of foot pain. He was evaluated and noted to be anemic with a hematocrit of 22.9 on admission down from 38.8 in June 2021. He reportedly gave a history of dark stools for a week. Stool occult blood testing in the emergency department was positive, but there has been no reported melena. The patient provides absolutely no history and is somnolent, not responding to questions. He reportedly does drink alcohol regularly on a daily basis and has been started on phenobarbital. A blood alcohol level on admission was less than 10. PAST MEDICAL HISTORY: 1. Alcohol abuse. 2. Diabetes. 3. Hypertension. CURRENT MEDICATIONS: His current medication list is reviewed in the chart. It is unknown whether he was taking any NSAIDs prior to admission. ALLERGIES: LISINOPRIL AND CODEINE. FAMILY HISTORY: Not obtainable. SOCIAL HISTORY: Not obtainable. REVIEW OF SYSTEMS: Not obtainable. PHYSICAL EXAMINATION: GENERAL: Shows a somnolent male, lying on a stretcher, but does not respond to questions. VITAL SIGNS: Stable. SKIN: Anicteric. HEENT: Shows no scleral icterus. NECK: Without lymphadenopathy or thyromegaly. LUNGS: Clear. HEART: Shows regular rate and rhythm. S1, S2. No murmur. ABDOMEN: Soft without tenderness. Bowel sounds are present. No organomegaly is noted. EXTREMITIES: Without edema. LABORATORY DATA: Reviewed. IMPRESSION: Anemia with history of black and occult-positive stools. The patient could undergo upper endoscopy for further evaluation, but is unable to provide consent for the procedure at this time. This does not need to be done urgently as he shows no signs of active GI bleeding. I would recommend empiric treatment with a proton-pump inhibitor and following his hematocrit serially. The differential diagnosis for his anemia and black stools includes peptic ulcer disease, alcoholic gastritis, and erosive esophagitis as well as malignancy. Thanks for asking me to see him. I will follow him in the hospital as needed. MD DAWIT Alves/KELLEY / [id number] MTDD
[2022-04-03] MEDS: 0.9 % Sodium Chloride Flush 3 ML SYRINGE IVFLUSH (17:29)
[2022-04-03 17:38] LABS: Glucose, Whole Blood 77 mg/dL (60-115)
[2022-04-03 18:53] LABS: Ammonia 42 umol/L (13-55)
[2022-04-03 20:32] LABS: Glucose, Whole Blood 81 mg/dL (60-115)
[2022-04-03] MEDS: PHENobarbitaL 15 MG TABLET 45 MG PO (22:23)
[2022-04-04] VITALS (7 sets, daily range): BP systolic 129–162; BP diastolic 69–84; PULSE 91–104; RESP 18–20; TEMP 36.4–37.4; O2SAT 93–100
[2022-04-04 06:31] LABS: Hematocrit 25.1 % (42.0-52.0); Hemoglobin 8.1 g/dl (14.0-18.0); Mean Corpuscular HGB Conc 32.3 g/dl (31.0-36.0); Mean Corpuscular Hemoglobin 32.1 pg (27.0-33.0); Mean Corpuscular Volume 99.6 fL (80.0-98.0); Mean Platelet Volume 9.6 fL (9.4-12.4); Platelet Count 183 X10*3/uL (160-400); Red Blood Count 2.52 X10*6/uL (4.60-5.80); Red Cell Distribution Width 15.6 % (11.0-16.0); White Blood Count 6.7 X10*3/uL (4.8-10.8)
[2022-04-04] MEDS: Pantoprazole Sodium 40 MG/10 ML VIAL IVPUSH ×2 (06:36→19:52)
[2022-04-04 06:52] LABS: Anion Gap 16 (12-20); Blood Urea Nitrogen 6 mg/dL (9-16); Calcium 8.7 mg/dL (8.4-10.2); Carbon Dioxide 27 mmol/L (22-29); Chloride 95 mmol/L (96-108); Creatinine Clr Calc Pharmacy 106.9; Estimated Glomerular Filt Rate > 60; Glucose Random 75 mg/dL (60-115); Magnesium 2.2 mg/dL (1.6-2.6); Potassium 3.6 mmol/L (3.3-5.1); Sodium 134 mmol/L (135-145)
[2022-04-04 07:19] LABS: Glucose, Whole Blood 86 mg/dL (60-115)
[2022-04-04] MEDS: Thiamine HCL 100 MG TABLET PO (08:31)
[2022-04-04] MEDS: Folic Acid 1 MG TABLET PO (08:31)
[2022-04-04] MEDS: PHENobarbitaL 15 MG TABLET 45 MG PO ×2 (08:32→19:52)
[2022-04-04] MEDS: amLODIPine Besylate 5 MG TABLET PO (08:32)
[2022-04-04] MEDS: 0.9 % Sodium Chloride Flush 3 ML SYRINGE IVFLUSH ×2 (08:34→19:52)
--- NOTE | 2022-04-04 08:53 | MHC.CM.PN ---
CM met with Patient6 at bedside. Patient is homeless and dc plan is return to the community VS Care Team interventions r/t ETOH. CM has initiated and will follow for dc planning. Patient has received Covid vax X1 and PCP is Dr. Andrzej Hodge.
--- NOTE | 2022-04-04 10:23 | P.PNIM_ITS ---
Subjective Subjective Date of Service: 04/04/22 Interval History: seen and examined this morning follow up for encephalopathy, etoh, gi bleeding more awake and alert this morning, able to answer questions reports few days of dark stools, no red blood, no abdominal pain, nausea or vomiting reporting foot pain, no fever or chills Review of Systems Review of Systems: Yes all other systems are reviewed and are negative Constitutional Constitutional: Denies chills and Denies fever(s) Cardiovascular Cardiovascular: Denies chest pain, Denies palpitations and Denies dyspnea Respiratory Respiratory: Denies cough and Denies dyspnea Gastrointestinal Gastrointestinal: Denies abdominal pain, Denies diarrhea, Denies nausea and Denies vomiting Endocrine Endocrine: Denies palpitations Physical Exam Vital Signs: Vital Signs: Last Vital Signs Temp 98.4 F 04/04/22 07:10 Pulse 99 04/04/22 07:10 Resp 18 04/04/22 07:10 BP 134/77 04/04/22 07:10 Pulse Ox 97 04/04/22 07:10 BMI result Body Mass Index 19.2 Const: General: cooperative, comfortable, alert and awake Nutritional Appearance: thin Orientation/consciousness: patient oriented x3 HEENT: Other: abrasion/bruising right eye similar to yesterday Resp: Effort & Inspection: normal respiratory effort and able to speak in complete sentences Auscultation: clear to auscultation bilaterally Cardio: Rate: regular rate Heart sounds: S1 normal heart sound present and S2 normal heart sound present GI: Inspection: No distended Palpation (GI): Soft to palpation and nontender Skin: Other: erythema right third toe primarily; macerated skin between toes on both feet Neuro: General: patient oriented x3 Extrem: Other: moving all 4 extremities spontaneously Objective Data Active Medications Acetaminophen (Acetaminophen 325 Mg Tablet) 650 mg PO Q6H PRN PRN Reason: Pain, Mild (Pain Scale 1-3) Amlodipine Besylate (Amlodipine Besylate 5 Mg Tablet) 5 mg PO DAILY [facility]; Protocol Last Admin: 04/04/22 08:32 Dose: 5 mg Documented by: LINK Clotrimazole (Clotrimazole 1 % Cream 15 Gm Tube) 1 appl TOPICAL BID [facility]; Protocol Dextrose (Dextrose 50 % 25 Gm/50 Ml Syringe) 25 gm IVPUSH Q15M PRN; Protocol PRN Reason: per Hypoglycemia Standing Ord. Docusate Sodium (Docusate Sodium 100 Mg Capsule) 100 mg PO DAILY PRN PRN Reason: Constipation Doxycycline Hyclate (Doxycycline Hyclate 100 Mg Tablet) 100 mg PO Q12H [facility] Folic Acid (Folic Acid 1 Mg Tablet) 1 mg PO DAILY [facility] Last Admin: 04/04/22 08:31 Dose: 1 mg Documented by: LINK Glucose (Glucose Gel 15 Gm Gel..Gram.) 15 gm PO Q15M PRN; Protocol PRN Reason: per Hypoglycemia Standing Ord. Pantoprazole Sodium (Pantoprazole Sodium 40 Mg/10 Ml Vial) 40 mg IVPUSH BID@0630,1630 [facility] Last Admin: 04/04/22 06:36 Dose: 40 mg Documented by: [facility] Pharmacy Consult (Consult Rx Etoh Phenob Po Dose) 1 each MISCELLANE ONCE PRN; Protocol PRN Reason: Consult order Phenobarbital (Phenobarbital 15 Mg Tablet) 45 mg PO BID [facility] Stop: 04/05/22 09:01 Last Admin: 04/04/22 08:32 Dose: 45 mg Documented by: LINK Phenobarbital (Phenobarbital 15 Mg Tablet) 15 mg PO BID [facility] Stop: 04/07/22 09:01 Phenobarbital (Phenobarbital 15 Mg Tablet) 15 mg PO DAILY [facility] Stop: 04/09/22 09:01 Sodium Chloride (0.9 % Sodium Chloride Flush 3 Ml Syringe) 3 ml IVFLUSH QSHIFT [facility] Last Admin: 04/04/22 08:34 Dose: 3 ml Documented by: LINK Thiamine HCl (Thiamine Hcl 100 Mg Tablet) 100 mg PO DAILY [facility] Last Admin: 04/04/22 08:31 Dose: 100 mg Documented by: LINK Labs CBC & Chem 7: 04/04/22 05:47 04/04/22 05:47 Labs: Laboratory Results - last 24 hr 04/03/22 04/03/22 04/03/22 03:54 10:24 17:33 MCV MCH MCHC RDW Plt Count MPV Absolute Nucleated RBC Nucleated RBC % (auto) Anion Gap Estim Creat Clear Calc Estimated GFR POC Glucose 77 Random Glucose Estimat Average Glucose 88 Hemoglobin A1c % 4.7 Calcium Magnesium Iron 37 L TIBC 266 % Saturation 14 L Unsat Iron Binding 229 Ferritin 66 Ammonia 04/03/22 04/03/22 04/04/22 18:18 20:27 05:47 MCV 99.6 H MCH 32.1 MCHC 32.3 RDW 15.6 Plt Count 183 MPV 9.6 Absolute Nucleated RBC 0.000 Nucleated RBC % (auto) 0.0 Anion Gap Estim Creat Clear Calc Estimated GFR POC Glucose 81 Random Glucose Estimat Average Glucose Hemoglobin A1c % Calcium Magnesium Iron TIBC % Saturation Unsat Iron Binding Ferritin Ammonia 42 04/04/22 04/04/22 05:47 07:09 MCV MCH MCHC RDW Plt Count MPV Absolute Nucleated RBC Nucleated RBC % (auto) Anion Gap 16 Estim Creat Clear Calc 106.9 Estimated GFR > 60 POC Glucose 86 Random Glucose 75 Estimat Average Glucose Hemoglobin A1c % Calcium 8.7 Magnesium 2.2 Iron TIBC % Saturation Unsat Iron Binding Ferritin Ammonia Assessment and Plan (1) Anemia: Status: Acute (2) GIB (gastrointestinal bleeding): Status: Acute (3) Alcohol abuse: Status: Acute Plan This is a 61 year old male with reported history of etoh abuse, HTN, DM who presented to the ED with complaints of foot pain found to have anemia and heme+ stools concerning for GI bleeding. Acute blood loss anemia secondary GI bleeding H/H 7.6/22.9 down from 13.5/38.8 one year ago h/o dark stools. stool heme + on exam no overt bleeding since admission; H/H has remained stable GI unable to assess yesterday due to mental status, unable to consent for EGD at the time of consult Continue IV PPI, clear liquid diet follow CBC iron studies near normal b12, folic acid pending Alcohol dependence with alcohol withdrawal received multiple doses of ativan followed by phenobarbital in ED not tremulous at this time continue phenobarbital protocol supplementation with folic acid and thiamine Right foot cellulitis r/t tinea pedis no sepsis -lotrimin bid x 7days -doxycyxline toxic encephalopathy improving. awake and able to give history today lethargic likely secondary to medication to prevent etoh withdrawal brain CT with no acute changes ammonia 42 DM listed in chart Hba1c 4.7, will d/c POCs Hypertension Likely r/t medication noncompliance and component of alcohol withdrawal BP improved Continue Norvasc started on this admission dvt ppx - mechanical devices only due to GI bleeding code status - presumed to be full code Attending - dr. cox Requires ongoing hospitalization due to treatment of alcohol withdrawal, work up for GI bleeding Quality Stroke Does the patient have a stroke diagnosis?: No VTE Prior VTE?: No VTE Risk Level:: Medical - moderate - high VTE Device Contraindication: N/A - Device Ordered VTE Drug Contraindication: Treatment Not Indicated
[2022-04-04] MEDS: Clotrimazole 1 % Cream 15 GM TUBE 1 APPL TOPICAL ×2 (10:50→20:08)
--- NOTE | 2022-04-04 11:35 | MHC.SHP ---
Pre-Procedural Eval Section A Date of Service: 04/04/22 The patient is an INPATIENT: Yes Changes since office visit: No Cold of Flu in the past 2 weeks, No New Medical Problems, No Changes in Medication and No Patient answered all questions The History & Physical has been completed within 30 days and I have reviewed it.: Yes Section B Chief Complaint: GIB, etoh Allergies: Allergies Allergy/AdvReac Type Severity Reaction Status Date / Time lisinopril [LISINOPRIL] Allergy Intermediate ANGIOEDEMA Verified 04/03/22 02:47 codeine [CODEINE] AdvReac Mild NAUSEA & Verified 04/03/22 02:47 VOMITING Plan I have reviewed the history and physical and performed a pertinent physical examination on my patient. No changes have occurred unless specified.
--- NOTE | 2022-04-04 11:35 | PM.GIPN ---
Subjective Subjective Date of Service: 04/04/22 Interval History: more awake and conversant denies abd pain hungry reports black stools x 1 week as outpatient Critical Care Time (minutes): 0 Physical Exam Vital Signs: Vital Signs: Last Vital Signs Temp 97.5 F 04/04/22 10:53 Pulse 91 04/04/22 10:53 Resp 18 04/04/22 10:53 BP 129/76 04/04/22 10:53 Pulse Ox 97 04/04/22 10:53 BMI result Body Mass Index 19.2 GI: Other: abdomen is soft and nontender Objective Data Labs CBC & Chem 7: 04/04/22 05:47 04/04/22 05:47 Procedures Date of Service Date of Service: 04/04/22 Progress Note: A&P Assessment and plan (1) Anemia: Status: Acute Assessment and Plan: No active gi bleeding hematocrit is stable stools dark per nursing I discussed endoscopy with Edward for further evaluation of anemia and black stools Hw understands risks and benefits and agrees to proceed. Time Spent With Patient Time: Total time spent is greater than 50% in coordination of care (as documented) at patient's floor/unit and/or counseling patient: Quality Stroke Does the patient have a stroke diagnosis?: No VTE Prior VTE?: No VTE Risk Level:: Medical - moderate - high VTE Device Contraindication: N/A - Device Ordered VTE Drug Contraindication: Treatment Not Indicated
[2022-04-04 11:40] LABS: Glucose, Whole Blood 139 mg/dL (60-115)
[2022-04-04] MEDS: Nicotine Polacrilex 2 MG GUM BUCCAL ×3 (14:45→19:51)
[2022-04-04 20:11] LABS: Glucose, Whole Blood 153 mg/dL (60-115)
[2022-04-05] VITALS (8 sets, daily range): BP systolic 102–149; BP diastolic 60–84; PULSE 68–114; RESP 14–21; TEMP 36.6–36.9; O2SAT 94–100; BMI 19.9
[2022-04-05] MEDS: Nicotine Polacrilex 2 MG GUM BUCCAL (02:02)
[2022-04-05 06:52] LABS: Folate 6.3 ng/mL (> or = 4.0); Vitamin B12 375 pg/mL (200-900)
[2022-04-05 08:02] LABS: Glucose, Whole Blood 91 mg/dL (60-115)
[2022-04-05] MEDS: amLODIPine Besylate 5 MG TABLET PO (09:28)
[2022-04-05] MEDS: Folic Acid 1 MG TABLET PO (09:28)
[2022-04-05] MEDS: Thiamine HCL 100 MG TABLET PO (09:28)
[2022-04-05] MEDS: PHENobarbitaL 15 MG TABLET 45 MG PO (09:28)
[2022-04-05] MEDS: Clotrimazole 1 % Cream 15 GM TUBE 1 APPL TOPICAL (09:29)
[2022-04-05] MEDS: 0.9 % Sodium Chloride Flush 3 ML SYRINGE IVFLUSH ×3 (09:29→20:22)
--- NOTE | 2022-04-05 10:28 | HO.PM.IMPN ---
Subjective Subjective Date of Service: 04/05/22 <Kate Toney NP - Last Filed: 04/05/22 10:42> 05/23/22 <Rodri Rehman MD - Last Filed: 05/23/22 14:11> Interval History: Follow up for encephalopathy, etoh, gi bleeding sleepy today no abdominal pain, nausea or vomiting no foot pain <Kate Toney NP - Last Filed: 04/05/22 10:42> Physical Exam Vital Signs: Vital Signs: Last Vital Signs Temp 98.2 F 04/05/22 07:22 Pulse 82 04/05/22 07:22 Resp 20 04/05/22 07:22 BP 131/60 04/05/22 07:22 Pulse Ox 97 04/05/22 07:22 BMI result Body Mass Index 19.2 <Kate Toney NP - Last Filed: 04/05/22 10:42> Appearing in no acute distress lung sounds are clear to auscultation heart regular rate rhythm, clear S1, S2 positive bowel sounds, abdomen is soft, nontender neuro patient is alert x3, no focal deficits <Kate Toney NP - Last Filed: 04/05/22 10:42> Objective Data Active Medications Acetaminophen (Acetaminophen 325 Mg Tablet) 650 mg PO Q6H PRN PRN Reason: Pain, Mild (Pain Scale 1-3) Amlodipine Besylate (Amlodipine Besylate 5 Mg Tablet) 5 mg PO DAILY [facility]; Protocol Last Admin: 04/05/22 09:28 Dose: 5 mg Documented by: SOFIA Clotrimazole (Clotrimazole 1 % Cream 15 Gm Tube) 1 appl TOPICAL BID [facility]; Protocol Last Admin: 04/05/22 09:29 Dose: 1 appl Documented by: SOFIA Dextrose (Dextrose 50 % 25 Gm/50 Ml Syringe) 25 gm IVPUSH Q15M PRN; Protocol PRN Reason: per Hypoglycemia Standing Ord. Docusate Sodium (Docusate Sodium 100 Mg Capsule) 100 mg PO DAILY PRN PRN Reason: Constipation Doxycycline Hyclate (Doxycycline Hyclate 100 Mg Tablet) 100 mg PO Q12H [facility] Last Admin: 04/05/22 09:28 Dose: 100 mg Documented by: SOFIA Folic Acid (Folic Acid 1 Mg Tablet) 1 mg PO DAILY [facility] Last Admin: 04/05/22 09:28 Dose: 1 mg Documented by: SOFIA Glucose (Glucose Gel 15 Gm Gel..Gram.) 15 gm PO Q15M PRN; Protocol PRN Reason: per Hypoglycemia Standing Ord. Nicotine Polacrilex (Nicotine Polacrilex 2 Mg Gum) 2 mg BUCCAL Q2H PRN PRN Reason: Nicotine Cravings Last Admin: 04/05/22 02:02 Dose: 2 mg Documented by: JUAN R Pantoprazole Sodium (Pantoprazole Sodium 40 Mg/10 Ml Vial) 40 mg IVPUSH BID@0630,1630 [facility] Last Admin: 04/04/22 19:52 Dose: 40 mg Documented by: JUAN R Pharmacy Consult (Consult Rx Etoh Phenob Po Dose) 1 each MISCELLANE ONCE PRN; Protocol PRN Reason: Consult order Phenobarbital (Phenobarbital 15 Mg Tablet) 15 mg PO BID [facility] Stop: 04/07/22 09:01 Phenobarbital (Phenobarbital 15 Mg Tablet) 15 mg PO DAILY [facility] Stop: 04/09/22 09:01 Sodium Chloride (0.9 % Sodium Chloride Flush 3 Ml Syringe) 3 ml IVFLUSH QSHIFT [facility] Last Admin: 04/05/22 09:29 Dose: 3 ml Documented by: SOFIA Thiamine HCl (Thiamine Hcl 100 Mg Tablet) 100 mg PO DAILY [facility] Last Admin: 04/05/22 09:28 Dose: 100 mg Documented by: SOFIA <Kate Toney NP - Last Filed: 04/05/22 10:42> Labs CBC & Chem 7: : 04/04/22 05:47 04/06/22 05:55 <Kate Toney NP - Last Filed: 04/05/22 10:42> Labs: Laboratory Results - last 24 hr 04/03/22 04/04/22 04/04/22 03:54 10:53 20:02 POC Glucose 139 H 153 H Vitamin B12 375 Folate 6.3 04/05/22 07:24 POC Glucose 91 Vitamin B12 Folate <Kate Toney NP - Last Filed: 04/05/22 10:42> Assessment and Plan (1) Anemia: (2) GIB (gastrointestinal bleeding): (3) Alcohol abuse: Assessment and Plan: This is a 61 year old male with reported history of etoh abuse, HTN, DM who presented to the ED with complaints of foot pain found to have anemia and heme+ stools concerning for GI bleeding. Acute blood loss anemia secondary GI bleeding H/H 7.6/22.9 down from 13.5/38.8 one year ago h/o dark stools. stool heme + on exam no overt bleeding since admission; H/H has remained stable Continue IV PPI follow CBC iron studies near normal Plan for EGD today Alcohol dependence with alcohol withdrawal received multiple doses of ativan followed by phenobarbital in ED not tremulous at this time continue phenobarbital protocol supplementation with folic acid and thiamine Right foot cellulitis r/t tinea pedis no sepsis -lotrimin bid x 7days -doxycyxline toxic metabolic encephalopathy improving. awake and able to give history today lethargic likely secondary to medication to prevent etoh withdrawal brain CT with no acute changes ammonia 42 DM listed in chart Hba1c 4.7, will d/c POCs Hypertension Likely r/t medication noncompliance and component of alcohol withdrawal BP improved Continue Norvasc started on this admission dvt ppx - mechanical devices only due to GI bleeding code status - presumed to be full code Attending Dr. Rehman Requires ongoing hospitalization due to treatment of alcohol withdrawal, work up for GI bleeding including EGD <Kate Toney NP - Last Filed: 04/05/22 10:42> Quality Stroke Does the patient have a stroke diagnosis?: No <Kate Toney NP - Last Filed: 04/05/22 10:42> VTE Prior VTE?: No <Kate Toney NP - Last Filed: 04/05/22 10:42> VTE Risk Level:: Medical - moderate - high <Kate Toney NP - Last Filed: 04/05/22 10:42> VTE Device Contraindication: N/A - Device Ordered <Kate Toney NP - Last Filed: 04/05/22 10:42> VTE Drug Contraindication: Treatment Not Indicated <Kate Toney NP - Last Filed: 04/05/22 10:42>
[2022-04-05 11:36] LABS: Glucose, Whole Blood 100 mg/dL (60-115)
--- NOTE | 2022-04-05 13:50 | MHC.CM.PN ---
per rounds pt to have an egb today no dc date at this time
--- NOTE | 2022-04-05 14:09 | P.CONAN_ITS ---
[facility] Active Problems Active Problems: All Active Problems (Updated 04/03/22 @ 04:53 by Aubrie Gomes DO) Anemia (Acute) GIB (gastrointestinal bleeding) (Acute) Alcohol abuse (Acute) Past Medical History Medical History Alcohol abuse Diabetes Hypertension Family History Family history of problems with anesthesia: No Surgical History Surgical History No history of previous surgery History of Problems with Anesthesia: No Social History Social History Household Members: None Housing: Homeless Unable to assess alcohol history related to: Unknown Alcohol intake: current Alcohol intake frequency: 3 or more drinks per day Alcohol type: beer Patient Tobacco Use Status: Current everyday Tobacco user Tobacco use type: Cigarette service: No Current occupational status: disabled Meds Allergies Allergy/AdvReac Type Severity Reaction Status Date / Time lisinopril [LISINOPRIL] Allergy Intermediate ANGIOEDEMA Verified 04/03/22 02:47 codeine [CODEINE] AdvReac Mild NAUSEA & Verified 04/03/22 02:47 VOMITING Active Medications: Current Medications Acetaminophen (Acetaminophen 325 Mg Tablet) 650 mg PO Q6H PRN PRN Reason: Pain, Mild (Pain Scale 1-3) Amlodipine Besylate (Amlodipine Besylate 5 Mg Tablet) 5 mg PO DAILY [facility]; Protocol Last Admin: 04/05/22 09:28 Dose: 5 mg Documented by: Clotrimazole (Clotrimazole 1 % Cream 15 Gm Tube) 1 appl TOPICAL BID [facility]; Protocol Last Admin: 04/05/22 09:29 Dose: 1 appl Documented by: Dextrose (Dextrose 50 % 25 Gm/50 Ml Syringe) 25 gm IVPUSH Q15M PRN; Protocol PRN Reason: per Hypoglycemia Standing Ord. Docusate Sodium (Docusate Sodium 100 Mg Capsule) 100 mg PO DAILY PRN PRN Reason: Constipation Doxycycline Hyclate (Doxycycline Hyclate 100 Mg Tablet) 100 mg PO Q12H [facility] Last Admin: 04/05/22 09:28 Dose: 100 mg Documented by: Folic Acid (Folic Acid 1 Mg Tablet) 1 mg PO DAILY [facility] Last Admin: 04/05/22 09:28 Dose: 1 mg Documented by: Glucose (Glucose Gel 15 Gm Gel..Gram.) 15 gm PO Q15M PRN; Protocol PRN Reason: per Hypoglycemia Standing Ord. Nicotine Polacrilex (Nicotine Polacrilex 2 Mg Gum) 2 mg BUCCAL Q2H PRN PRN Reason: Nicotine Cravings Last Admin: 04/05/22 02:02 Dose: 2 mg Documented by: Pantoprazole Sodium (Pantoprazole Sodium 40 Mg/10 Ml Vial) 40 mg IVPUSH BID@0630,1630 [facility] Last Admin: 04/04/22 19:52 Dose: 40 mg Documented by: Pharmacy Consult (Consult Rx Etoh Phenob Po Dose) 1 each MISCELLANE ONCE PRN; Protocol PRN Reason: Consult order Phenobarbital (Phenobarbital 15 Mg Tablet) 15 mg PO BID [facility] Stop: 04/07/22 09:01 Phenobarbital (Phenobarbital 15 Mg Tablet) 15 mg PO DAILY [facility] Stop: 04/09/22 09:01 Sodium Chloride (0.9 % Sodium Chloride Flush 3 Ml Syringe) 3 ml IVFLUSH QSHIFT [facility] Last Admin: 04/05/22 09:29 Dose: 3 ml Documented by: Thiamine HCl (Thiamine Hcl 100 Mg Tablet) 100 mg PO DAILY [facility] Last Admin: 04/05/22 09:28 Dose: 100 mg Documented by: Home Medications Medication Instructions Recorded Confirmed Last Taken Type No Known Home Meds 04/03/22 04/03/22 Unknown History Exam Exam Date and Time: April 05, 2022 1409 Height,Weight and Vital Signs: Height 5 ft 9 in Weight 61.235 kg Last Vital Signs Temp 98.4 F 04/05/22 13:29 Pulse 85 04/05/22 13:29 Resp 18 04/05/22 13:29 BP 129/79 04/05/22 13:29 Pulse Ox 98 04/05/22 13:29 Pertinent Lab Results Pertinent Lab Results: Laboratory Tests 04/03/22 04/03/22 04/03/22 03:54 03:54 03:54 WBC 8.6 RBC 2.34 L Hgb 7.6 L Hct 22.9 L MCV 97.9 MCH 32.5 MCHC 33.2 RDW 15.9 Plt Count 167 MPV 9.4 Immature Gran % (Auto) 1.2 H Neut % (Auto) 76.9 H Lymph % (Auto) 12.4 L Archer % (Auto) 8.5 Eos % (Auto) 0.6 Baso % (Auto) 0.4 Lymph # (Auto) 1.1 L Archer # (Auto) 0.7 Eos # (Auto) 0.1 Baso # (Auto) 0.0 Abs Immat Gran (auto) 0.10 H Absolute Neuts (auto) 6.6 Absolute Nucleated RBC 0.000 Nucleated RBC % (auto) 0.0 PT INR APTT Sodium 135 Potassium 3.4 Chloride 99 Carbon Dioxide 25 Anion Gap 14 BUN 5 L Creatinine 0.67 Estim Creat Clear Calc 99.0 Estimated GFR > 60 POC Glucose Random Glucose 98 Estimat Average Glucose Hemoglobin A1c % Calcium 8.7 Magnesium 1.7 Iron 37 L TIBC 266 % Saturation 14 L Unsat Iron Binding 229 Ferritin 66 Total Bilirubin 0.5 Direct Bilirubin 0.2 AST 55 H ALT 32 Alkaline Phosphatase 86 D Ammonia Total Protein 6.4 L Albumin 3.5 Vitamin B12 Folate Stool Occult Blood COVID-19 ([facility]) Negative COVID-19 Clin Com See Note Blood Type Antibody Screen 04/03/22 04/03/22 04/03/22 03:54 04:21 04:21 WBC RBC Hgb Hct MCV MCH MCHC RDW Plt Count MPV Immature Gran % (Auto) Neut % (Auto) Lymph % (Auto) Archer % (Auto) Eos % (Auto) Baso % (Auto) Lymph # (Auto) Archer # (Auto) Eos # (Auto) Baso # (Auto) Abs Immat Gran (auto) Absolute Neuts (auto) Absolute Nucleated RBC Nucleated RBC % (auto) PT 10.5 INR 0.9 APTT 34.7 Sodium Potassium Chloride Carbon Dioxide Anion Gap BUN Creatinine Estim Creat Clear Calc Estimated GFR POC Glucose Random Glucose Estimat Average Glucose Hemoglobin A1c % Calcium Magnesium Iron TIBC % Saturation Unsat Iron Binding Ferritin Total Bilirubin Direct Bilirubin AST ALT Alkaline Phosphatase Ammonia Total Protein Albumin Vitamin B12 375 Folate 6.3 Stool Occult Blood POSITIVE COVID-19 ([facility]) COVID-19 [employer] Com Blood Type Antibody Screen 04/03/22 04/03/22 04/03/22 04:52 10:24 17:33 WBC RBC Hgb Hct MCV MCH MCHC RDW Plt Count MPV Immature Gran % (Auto) Neut % (Auto) Lymph % (Auto) Archer % (Auto) Eos % (Auto) Baso % (Auto) Lymph # (Auto) Archer # (Auto) Eos # (Auto) Baso # (Auto) Abs Immat Gran (auto) Absolute Neuts (auto) Absolute Nucleated RBC Nucleated RBC % (auto) PT INR APTT Sodium Potassium Chloride Carbon Dioxide Anion Gap BUN Creatinine Estim Creat Clear Calc Estimated GFR POC Glucose 77 Random Glucose Estimat Average Glucose 88 Hemoglobin A1c % 4.7 Calcium Magnesium Iron TIBC % Saturation Unsat Iron Binding Ferritin Total Bilirubin Direct Bilirubin AST ALT Alkaline Phosphatase Ammonia Total Protein Albumin Vitamin B12 Folate Stool Occult Blood COVID-19 ([facility]) COVID-19 [employer] Com Blood Type A Negative Antibody Screen NEGATIVE 04/03/22 04/03/22 04/04/22 18:18 20:27 05:47 WBC 6.7 RBC 2.52 L Hgb 8.1 L Hct 25.1 L MCV 99.6 H MCH 32.1 MCHC 32.3 RDW 15.6 Plt Count 183 MPV 9.6 Immature Gran % (Auto) Neut % (Auto) Lymph % (Auto) Archer % (Auto) Eos % (Auto) Baso % (Auto) Lymph # (Auto) Archer # (Auto) Eos # (Auto) Baso # (Auto) Abs Immat Gran (auto) Absolute Neuts (auto) Absolute Nucleated RBC 0.000 Nucleated RBC % (auto) 0.0 PT INR APTT Sodium Potassium Chloride Carbon Dioxide Anion Gap BUN Creatinine Estim Creat Clear Calc Estimated GFR POC Glucose 81 Random Glucose Estimat Average Glucose Hemoglobin A1c % Calcium Magnesium Iron TIBC % Saturation Unsat Iron Binding Ferritin Total Bilirubin Direct Bilirubin AST ALT Alkaline Phosphatase Ammonia 42 Total Protein Albumin Vitamin B12 Folate Stool Occult Blood COVID-19 ([facility]) COVID-19 [employer] Com Blood Type Antibody Screen 04/04/22 04/04/22 04/04/22 05:47 07:09 10:53 WBC RBC Hgb Hct MCV MCH MCHC RDW Plt Count MPV Immature Gran % (Auto) Neut % (Auto) Lymph % (Auto) Archer % (Auto) Eos % (Auto) Baso % (Auto) Lymph # (Auto) Archer # (Auto) Eos # (Auto) Baso # (Auto) Abs Immat Gran (auto) Absolute Neuts (auto) Absolute Nucleated RBC Nucleated RBC % (auto) PT INR APTT Sodium 134 L Potassium 3.6 Chloride 95 L Carbon Dioxide 27 Anion Gap 16 BUN 6 L Creatinine 0.62 Estim Creat Clear Calc 106.9 Estimated GFR > 60 POC Glucose 86 139 H Random Glucose 75 Estimat Average Glucose Hemoglobin A1c % Calcium 8.7 Magnesium 2.2 Iron TIBC % Saturation Unsat Iron Binding Ferritin Total Bilirubin Direct Bilirubin AST ALT Alkaline Phosphatase Ammonia Total Protein Albumin Vitamin B12 Folate Stool Occult Blood COVID-19 ([facility]) COVID-19 [employer] Com Blood Type Antibody Screen 04/04/22 04/05/22 04/05/22 20:02 07:24 11:03 WBC RBC Hgb Hct MCV MCH MCHC RDW Plt Count MPV Immature Gran % (Auto) Neut % (Auto) Lymph % (Auto) Archer % (Auto) Eos % (Auto) Baso % (Auto) Lymph # (Auto) Archer # (Auto) Eos # (Auto) Baso # (Auto) Abs Immat Gran (auto) Absolute Neuts (auto) Absolute Nucleated RBC Nucleated RBC % (auto) PT INR APTT Sodium Potassium Chloride Carbon Dioxide Anion Gap BUN Creatinine Estim Creat Clear Calc Estimated GFR POC Glucose 153 H 91 100 Random Glucose Estimat Average Glucose Hemoglobin A1c % Calcium Magnesium Iron TIBC % Saturation Unsat Iron Binding Ferritin Total Bilirubin Direct Bilirubin AST ALT Alkaline Phosphatase Ammonia Total Protein Albumin Vitamin B12 Folate Stool Occult Blood COVID-19 ([facility]) COVID-19 [employer] Com Blood Type Antibody Screen Airway Mallampati Class: II (Poor dentition ) TM Dist: >3cm Neck ROM: Full Heart: rrr Lungs: cta Assessment and Plan Assessment Anesthesia Assessment: Anesthesia Plan Discussed and Chart Reviewed Final Anesthetic Review Family History of Problems with Anesthesia: No History of Problems with Anesthesia: No NPO: Yes ASA Class: III Final Preanesthetic Review: No Changes in Pt Med Stat, Meds/Allgs Chart Reviewed and Consent Obtained/Reviewed Patient Risk: Intermediate Procedure Risk: Intermediate Anesthetic Plan Anesthetic Plan: MAC: Disposition: Standard PACU
--- NOTE | 2022-04-05 15:03 | PM.OP ---
Brief Operative Note Date of Service: 04/05/22 Pre-op diagnosis: anemia, black stool Post-op diagnosis: same (gastritis, duodenal ulcers) Procedure: EGD Surgeon: Bryon Rodriguez Anesthesia: MAC Was an Marketing Business Analyst used for this Procedure?: No Estimated blood loss (mL): 2 Pathology: other (antral bx's) Condition: stable Disposition: PACU
--- NOTE | 2022-04-05 15:08 | PM.EVENT ---
Event Note Date of Service: 04/05/22 Event Note: egd note dictated 3 clean based duodenal ulcers less than 10 mm, no bleeding duodenitis and gastritis antral biopsies obtained. advance diet f/u bx results oral ppi repeat egd in 8-12 weeks
[2022-04-05 15:57] LABS: Glucose, Whole Blood 91 mg/dL (60-115)
[2022-04-05] MEDS: Pantoprazole Sodium 40 MG/10 ML VIAL IVPUSH (17:54)
[2022-04-05] MEDS: Acetaminophen 325 MG TABLET 650 MG PO (20:21)
[2022-04-05] MEDS: PHENobarbitaL 15 MG TABLET PO (20:21)
[2022-04-05] MEDS: Nicotine 21 MG PATCH.TD24 TRANSDERMA (20:22)
[2022-04-06] VITALS: BP 140/69; PULSE 80; RESP 20; TEMP 36.5
[2022-04-06 00:32] VITALS: O2SAT 99
[2022-04-06] MEDS: diphenhydrAMINE HCL 25 MG TABLET PO (00:39)
--- NOTE | 2022-04-06 02:57 | OP_ITS ---
SURGEON: Bryon Rodriguez MD INDICATIONS: Anemia and black stools. PREOPERATIVE DIAGNOSIS: POSTOPERATIVE DIAGNOSIS: PROCEDURE PERFORMED: Upper endoscopy with biopsy. ESTIMATED BLOOD LOSS: COMPLICATIONS: ANESTHESIA: Monitored anesthesia care. ASSISTANTS: SPECIMENS: PROCEDURE DESCRIPTION: The history and physical were performed. The risks and benefits of the procedure were explained to the patient. Informed consent was obtained. The patient was placed in the left lateral decubitus position. The Olympus video gastroscope was introduced into esophagus, stomach, and duodenum. Examination was performed. The scope was removed. He tolerated the procedure well, was transferred to Recovery in stable condition. FINDINGS: Esophagus: Normal. Stomach: Showed changes of gastritis, mainly in the antrum and just below the EG junction where appeared to be some whitish food material or medication coating the mucosa. No varices were identified near the esophagus or the stomach. Antral biopsies were obtained to rule out H pylori. Duodenum: Three small, less than 10 mm ulcers were identified in the duodenal bulb with associated duodenitis and there was no bleeding. IMPRESSION: 1. Duodenal ulcers. 2. Gastritis. RECOMMENDATIONS: 1. Follow up the biopsy results. 2. Repeat upper endoscopy in 8 to 12 weeks. MD DAWIT Alves/KELLEY / [id number]
[2022-04-06 03:15] VITALS: BP 142/75; PULSE 82; RESP 19; TEMP 36.2; O2SAT 100
[2022-04-06] MEDS: Pantoprazole Sodium 40 MG/10 ML VIAL IVPUSH (05:26)
[2022-04-06 07:06] LABS: Anion Gap 13 (12-20); Blood Urea Nitrogen 11 mg/dL (9-16); Calcium 8.8 mg/dL (8.4-10.2); Carbon Dioxide 26 mmol/L (22-29); Chloride 96 mmol/L (96-108); Creatinine Clr Calc Pharmacy 95.6; Estimated Glomerular Filt Rate > 60; Glucose Random 97 mg/dL (60-115); Potassium 3.9 mmol/L (3.3-5.1); Sodium 131 mmol/L (135-145)
--- NOTE | 2022-04-06 07:24 | HO.POSTANES ---
Post Anesthesia Evaluation Post Anesthesia Evaluation Vital Signs: Vital Signs Temp Pulse Resp BP Pulse Ox 04/06/22 03:15 97.1 F 82 19 142/75 H 100 04/06/22 00:32 99 04/06/22 00:00 97.7 F 80 20 140/69 H 04/05/22 20:00 97.8 F 83 16 139/69 100 Anesthesia: Monitored Mental Status: Awake Pain Control: Satisfactory Nausea/Vomiting: None Hydration: Adequate Anesthesia-Related Issues: No Anes. Related Issues
[2022-04-06 07:40] VITALS: BP 143/74; PULSE 79; RESP 20; TEMP 36.8; O2SAT 92
[2022-04-06] MEDS: amLODIPine Besylate 5 MG TABLET PO (08:59)
[2022-04-06] MEDS: PHENobarbitaL 15 MG TABLET PO (09:00)
[2022-04-06] MEDS: Folic Acid 1 MG TABLET PO (09:00)
[2022-04-06] MEDS: 0.9 % Sodium Chloride Flush 3 ML SYRINGE IVFLUSH (09:00)
[2022-04-06] MEDS: Nicotine 21 MG PATCH.TD24 TRANSDERMA (09:00)
[2022-04-06] MEDS: Thiamine HCL 100 MG TABLET PO (09:01)
[2022-04-06] MEDS: Clotrimazole 1 % Cream 15 GM TUBE 1 APPL TOPICAL (09:01)
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
--- NOTE | 2022-04-06 09:35 | MHC.CM.PN ---
Patient has been medically cleared for dc today. Patient is homeless and plans to leaver the hospital on his own (he declined assist with transportation)and look up a few of his buddies. CM provided Patient with a pamphlet on homeless shelters but he is not interested in that. Patient also declined SA program stating, I haven't drank for 4 days.
== END 2022-04-06 11:00 | disposition home or self-care (01) | DRG 241 ==
LOC: HO.ED 04:53 → HO.EDOVER 09:55 → HO.IMC 17:51
PROVIDERS: Internal Medicine Gastroenterology; Admitting Provider Physician Assistant Medical; Emergency Provider Emergency Medicine; PCP Internal Medicine; Visit Provider Nurse Practitioner Acute Care
PROC: 0DJ08ZZ Inspection of Upper Intestinal Tract, Via Natural or Artificial Opening Endoscopic (ICD-10-PCS; CPT 43235; principal; 2022-04-05 14:30)
DX: K29.71 Gastritis, unspecified, with bleeding (principal); G92.8 Other toxic encephalopathy; D62 Acute posthemorrhagic anemia; L03.115 Cellulitis of right lower limb; B35.3 Tinea pedis; K26.4 Chronic or unspecified duodenal ulcer with hemorrhage; F10.230 Alcohol dependence with withdrawal, uncomplicated; Z20.822 Contact with and (suspected) exposure to COVID-19; E11.9 Type 2 diabetes mellitus without complications; Z91.19 Patient's noncompliance with other medical treatment and regimen; F17.210 Nicotine dependence, cigarettes, uncomplicated; Z71.6 Tobacco abuse counseling; Z59.02 Unsheltered homelessness; Z88.5 Allergy status to narcotic agent; Z88.8 Allergy status to other drugs, medicaments and biological substances; Z79.899 Other long term (current) drug therapy
CPT/HCPCS: 36415; 70450; 71045; 80048; 80076; 82140; 82272; 82607; 82728; 82746; 82947; 83036; 83540; 83735; 85025; 85027; 85610; 85730; 86850; 86900; 86901; 87635; 88305; 88342; 93005; 96365; 96366; 96375; 96376; 99285; J2060; J2250; Q0163

== ENCOUNTER 2022-04-08 02:31 | Emergency (ER) | payer OTHER, MEDICARE, MEDICAID, SELFPAY ==
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
[2022-04-08 02:47] VITALS: BP 135/76; PULSE 90; RESP 16; TEMP 36.8; O2SAT 100; BMI 19.5
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
[2022-04-08 03:43] LABS: Basophils Percent Auto 0.4 % (0-2); Eosinophils Absolute Auto 0.2 X10*3/uL (0.0-0.4); Eosinophils Percent Auto 2.1 % (0-4); Hematocrit 22.1 % (42.0-52.0); Hemoglobin 7.2 g/dl (14.0-18.0); Imm Gran Abs Auto 0.27 X10*3/uL (0.00-0.03); Imm Gran Pct Auto 3.7 % (0.0-0.4); Lymphocytes Percent Auto 13.7 % (20-40); MANUAL DIFF FLAG NO; Mean Corpuscular HGB Conc 32.6 g/dl (31.0-36.0); Mean Corpuscular Hemoglobin 32.4 pg (27.0-33.0); Mean Corpuscular Volume 99.5 fL (80.0-98.0); Monocytes Percent Auto 14.3 % (2-11); Neutrophils Absolute Auto 4.8 x10*3/uL (2.0-8.3); Neutrophils Percent Auto 65.8 % (45-73); Platelet Count 243 X10*3/uL (160-400); Red Blood Count 2.22 X10*6/uL (4.60-5.80); Red Cell Distribution Width 15.9 % (11.0-16.0); White Blood Count 7.3 X10*3/uL (4.8-10.8)
--- NOTE | 2022-04-08 03:44 | PC.NURSE ---
Labs obtained. XRay at bedside.
[2022-04-08 04:00] LABS: Ethanol 83 mg/dL
[2022-04-08 04:01] LABS: Anion Gap 14 (12-20); Blood Urea Nitrogen 11 mg/dL (9-16); Calcium 8.3 mg/dL (8.4-10.2); Carbon Dioxide 23 mmol/L (22-29); Chloride 100 mmol/L (96-108); Creatinine Clr Calc Pharmacy 96.2; Estimated Glomerular Filt Rate > 60; Glucose Random 87 mg/dL (60-115); Potassium 4.1 mmol/L (3.3-5.1); Sodium 133 mmol/L (135-145)
== END 2022-04-08 08:25 | disposition home or self-care (01) ==
PROVIDERS: Emergency Provider Emergency Medicine
DX: D64.9 Anemia, unspecified (principal); K92.2 Gastrointestinal hemorrhage, unspecified; F10.10 Alcohol abuse, uncomplicated; Y90.4 Blood alcohol level of 80-99 mg/100 ml; S90.31XA Contusion of right foot, initial encounter; V03.00XA Pedestrian on foot injured in collision with car, pick-up truck or van in nontraffic accident, initial encounter; R42 Dizziness and giddiness; E11.9 Type 2 diabetes mellitus without complications; I10 Essential (primary) hypertension; F17.200 Nicotine dependence, unspecified, uncomplicated; Z79.899 Other long term (current) drug therapy; Y93.89 Activity, other specified; Y92.9 Unspecified place or not applicable; Y99.9 Unspecified external cause status
CPT/HCPCS: 36415; 73620; 80048; 82077; 85025; 99283

== ENCOUNTER 2022-05-31 15:00 | Inpatient (IN) | payer OTHER, MEDICARE, MEDICAID, SELFPAY ==
--- NOTE | ~2022-05-31 | FL_ITS ---
EXAMINATION: XR FLUOROSCOPY WITH IMAGES CLINICAL INFORMATION: Right hip fracture with internal fixation. COMPARISON: Right hip 05/31/2022 TECHNIQUE: Fluoroscopy performed by Dr. Agus Ro. Fluoroscopy time: 0.8 minutes DAP: 0.250 mGycm2 Images: 4 FINDINGS: The intertrochanteric fracture has been stabilized with short intramedullary femoral aubrey and a gamma nail with the intertrochanteric fracture in satisfactory alignment. No additional fracture seen. There Is no dislocation. The soft tissues are normal. FL/FL guidance in OR IMPRESSION: Stabilized intertrochanteric fracture with a short intramedullary femoral aubrey and gamma nail.
--- NOTE | ~2022-05-31 | XR_ITS ---
EXAMINATION: PORTABLE CHEST 1 VIEW CLINICAL INFORMATION: clearance . COMPARISON: 04/03/2022. TECHNIQUE: Portable frontal view of the chest was obtained. FINDINGS: Lungs are hyperinflated with bullous emphysematous changes seen more set the lung apices and left hilar region similar to the prior examination. I do not appreciate any acute superimposed focal infiltrate, effusion, edema, or pneumothorax. Cardiac and mediastinal silhouettes within normal limits for the technique. XR/XR chest 1V IMPRESSION: Extensive emphysematous changes bilaterally with an appearance similar to the 04/03/2022 study. No acute superimposed process
--- NOTE | ~2022-05-31 | CT_ITS ---
EXAMINATION: CT CERVICAL SPINE WITHOUT CONTRAST CLINICAL INFORMATION: Head trauma, rule out intracranial abnormality COMPARISON: Head CT scan dated 04/03/2022. Chest CT scan dated 08/29/2006. TECHNIQUE: Multiple axial images of the head were obtained without the administration of intravenous contrast. Coronal and sagittal reformatted images were obtained. This CT examination was performed using dose optimization techniques as appropriate, variously including the following: *Automated exposure control *Adjustment of mA and/or kV according to patient size (this includes techniques or standardized protocols for targeted exams where dose is matched to indication/reason for exam; i.e. extremities or head) *Use of iterative reconstruction technique DLP: 307.80 mGy-cm FINDINGS: There is straightening of the normal cervical lordosis. Again seen is moderate degenerative disc disease at C5-C6 with disc space narrowing, sclerosis and adjacent endplates, marginal osteophyte formation and mild bilateral neural foraminal narrowing. There is mild grade 1 anterolisthesis of C4 over C5 without significant change. Mild bilateral facet arthropathy is seen. The spinous processes are intact. The odontoid process is intact with mild articular degenerative changes. The cervical soft tissues are unremarkable. There is no lymphadenopathy. The visualized thyroid gland are unremarkable. The visualized lung apices show moderate pleural thickening, scarring and cystic changes. CT/CT cervical spine wo con IMPRESSION: 1. Straightening of the normal cervical lordosis may be secondary to positioning and/or muscle spasm. 2. Degenerative changes as detailed above without significant interval change. No definitive acute abnormality. 3. Biapical cystic changes and scarring is similar to previous studies. Fleischner guidelines were followed. .
--- NOTE | ~2022-05-31 | XR_ITS ---
EXAMINATION: XR HIP, RIGHT CLINICAL INFORMATION: Fall with right hip pain. Unable to ambulate COMPARISON: None TECHNIQUE: Frontal view the pelvis with coned AP and crosstable lateral views of the right hip. FINDINGS: Slightly comminuted not significantly displaced intratrochanteric right femur fracture is seen. Femoral head is well-seated within the right acetabulum. No additional pelvic fracture. Unremarkable bowel gas pattern. Vascular calcification noted. XR/XR hip RT w [id number] IMPRESSION: Comminuted not significantly displaced intertrochanteric right femur fracture.
--- NOTE | ~2022-05-31 | CT_ITS ---
EXAMINATION: CT HEAD WITHOUT CONTRAST CLINICAL INFORMATION: Head injury. COMPARISON: Head CT scan dated 04/03/2022. TECHNIQUE: Contiguous axial imaging was performed from the skull base to vertex without intravenous administration of contrast. Coronal and sagittal reformatted images were obtained. There is limitation secondary to motion artifact. This CT examination was performed using dose optimization techniques as appropriate, variously including the following: *Automated exposure control *Adjustment of mA and/or kV according to patient size (this includes techniques or standardized protocols for targeted exams where dose is matched to indication/reason for exam; i.e. extremities or head) *Use of iterative reconstruction technique DLP: 678.66 mGy-cm FINDINGS: There is mild widening of the cortical sulci and associated ventriculomegaly. The lateral ventricles are symmetrical. Minimal bilateral microvascular changes. The third and fourth ventricles are in their normal midline position. The basilar and prepontine cisterns are unremarkable. There is no acute intra or extracerebral abnormality. There is no mass effect or midline shift. Sections through the bony calvarium are unremarkable. The orbits are intact. The paranasal sinuses are clear. The mastoid air cells are clear. CT/CT head/brain wo con IMPRESSION: Limited study without overt acute intracranial abnormality. If clinically indicated, a repeat study should be considered when the patient can better cooperate for the study.
[2022-05-31 15:20] VITALS: BP 178/98; PULSE 74; O2SAT 97
[2022-05-31 15:27] VITALS: BP 136/85; PULSE 75; RESP 18; TEMP 36.8; O2SAT 98; BMI 19.2
--- NOTE | 2022-05-31 20:41 | ED.FALL ---
HPI - Fall General Chief Complaint: Fall Stated Complaint: trip and fall, laceration left forearm Time Seen by Provider: 05/31/22 20:18 Source: patient and EMS Mode of arrival: EMS History of Present Illness HPI Narrative: 61-year-old male with past medical history of ETOH abuse, anemia, diabetes, GI bleed, HTN, presenting to the ED complaining of head injury and right hip pain s/p mechanical trip & fall this morning. States [place] when tripped and fell twice, admits to hitting head, denies LOC. Denies taking anticoagulation. Denies symptoms prior to fall. Reports caught himself the 1st time however fell the 2nd time, & was unable to ambulate after incident. Denies EtOH today, admits last drink yesterday, drinks daily will not specify amount. Denies headache, neck pain, new back pain, abdominal pain, nausea/vomiting, numbness/tingling MD complaint: fall Onset (ago): hour(s) Fall from: wheelchair Related Data Previous Rx's Medication Instructions Recorded amlodipine 5 mg tablet 5 mg PO DAILY #30 tabs 04/06/22 clotrimazole 1 % topical cream 1 appl topical BID 7 days #15 grams 04/06/22 doxycycline hyclate 100 mg tablet 100 mg PO Q12H #10 tabs 04/06/22 omeprazole 40 mg capsule,delayed 40 mg PO BID@0630,1630 #60 caps 04/06/22 release ferrous sulfate 325 mg (65 mg 325 mg PO DAILY #30 tabs 04/08/22 iron) tablet folic acid 1 mg tablet 1 mg PO DAILY #30 tabs 04/08/22 Allergies Allergy/AdvReac Type Severity Reaction Status Date / Time lisinopril [LISINOPRIL] Allergy Intermediate ANGIOEDEMA Verified 04/08/22 02:50 codeine [CODEINE] AdvReac Mild NAUSEA & Verified 04/08/22 02:50 VOMITING Review of Systems Review of Systems: Constitutional: No Fever, No Chills, No Fatigue, No Malaise ENT/Mouth: No Ear Pain, No Nasal Congestion, No sore throat, No Rhinorrhea, No Swallowing Difficulty Eyes: No Eye Pain, No Swelling, No Redness, No Vision Changes Cardiovascular: No Chest Pain, No SOB, No Edema, No Palpitations Respiratory: No Cough, No Sputum, No Dyspnea Gastrointestinal: No Nausea, No Vomiting, No Diarrhea, No Constipation, No Abdominal pain Genitourinary: No Dysuria, No Urinary Frequency, No Hematuria, No Urinary Incontinence/retention, No Urinary Flow Changes, No Hesitancy Musculoskeletal: + joint pain, No Myalgias, No Joint Swelling Skin: No Skin Lesions, No rash Neuro: No Weakness, No Numbness, No Paresthesias, No Loss of Consciousness, No Dizziness, + Head injury Yes all other systems are reviewed and are negative Constitutional: Constitutional: Reports as per [facility] Past Medical History Attestation statement: The following information was validated with the patient. Medical History Alcohol abuse Diabetes Hypertension Surgical History No history of previous surgery Social History Social History Household Members: None Housing: Homeless Unable to assess alcohol history related to: Unknown Alcohol intake: current Alcohol intake frequency: 3 or more drinks per day Alcohol type: beer Patient Tobacco Use Status: Current everyday Tobacco user Tobacco use type: Cigarette Advance Directives: No Advance Directives Information Provided: No service: No Current occupational status: disabled Physical Exam Vital Signs: Vital Signs: Last Vital Signs Temp 97.4 F 05/31/22 23:27 Pulse 103 H 05/31/22 23:27 Resp 18 05/31/22 23:27 BP 149/77 H 05/31/22 23:27 Pulse Ox 97 05/31/22 23:27 O2 Del Method 05/31/22 23:27 BMI result Body Mass Index 19.2 Const: General: cooperative, no acute distress and poor hygiene; No intoxicated appearing Orientation/consciousness: patient oriented x3 Limitations: no limitations HEENT: Head: Yes normal to inspection and Yes hematoma (To frontal scalp. No overlying abrasion/laceration) Ears: hearing grossly normal bilaterally General nose exam: Normal external nose present Face and sinus: Yes normal facial exam Mouth: Normal oral and palatal mucosa present Eyes: General: appearance normal, both eyes and all related structures Pupils: Equal, round and reactive pupils present EOM: EOMs intact bilaterally Neck: Other: No midline cervical spinous tenderness Neck: Yes normal visual inspection and Yes no meningeal signs Resp: Effort & Inspection: normal respiratory effort and no respiratory distress Auscultation: clear to auscultation bilaterally Cardio: Rate: regular rate Heart sounds: S1 normal heart sound present and S2 normal heart sound present GI: Inspection: Yes normal to inspection Palpation (GI): Soft to palpation, nontender, no guarding and not rigid : General: Yes no CVA tenderness Back/Spine/Pelvis: Other: No midline thoracic/lumbar spinous tenderness/step-off or deformity Back: no CVA tenderness Skin: Rashes: no rashes Wounds: no wounds Neuro: General: patient oriented x3, tone normal, moves all extremities, no meningeal signs, CN's II-XI intact bilaterally and Unable to assess gait Cranial nerves: Yes Equal, round and reactive pupils present Gait exam (Neuro): Unable to assess gait Motor exam (neuro): Tremors during motor activity present (Mildly tremulous) Extrem: Other: Right hip without appreciable deformity. + tender to palpation with decreased ROM secondary to pain. Neurovascular intact distally Course Course Course Narrative: XR hip RT w PEL1V IMPRESSION: Comminuted not significantly displaced intertrochanteric right femur fracture. >> spoke with Orthopedics, Dr. Goldsmith, recommended admission to hospitalist with potential surgery tomorrow. Patient should be NPO at midnight > phenobarb protocol initiated XR chest 1V IMPRESSION: Extensive emphysematous changes bilaterally with an appearance similar to the 04/03/2022 study. No acute superimposed process CT head/brain wo con IMPRESSION: Limited study without overt acute intracranial abnormality. ? If clinically indicated, a repeat study should be considered when the patient can better cooperate for the study. CT cervical spine wo con IMPRESSION: 1. Straightening of the normal cervical lordosis may be secondary to positioning and/or muscle spasm. 2. Degenerative changes as detailed above without significant interval change. No definitive acute abnormality. 3. Biapical cystic changes and scarring is similar to previous studies. Fleischner guidelines were followed. -2350--no leukocytosis. H&H chronically low/at patient's baseline. Labs otherwise unremarkable. Plan to admit for further management MDM - Fall MDM Narrative Medical decision making narrative: 61-year-old male with past medical history of ETOH abuse, anemia, diabetes, GI bleed, HTN, presenting to the ED complaining of head injury and right hip pain s/p mechanical fall this morning. On exam vital signs stable, NAD/nontoxic appearing, no focal neuro deficits, hematoma noted to frontal scalp, no midline spinous tenderness, right hip with notable tenderness and decreased ROM. Patient mildly tremulous. Concer for ICH vs hip fracture. Suspect patient is in mild ETOH withdrawal. Plan: Head/C-spine CT, hip x-ray Medical Records Attestation: I reviewed the patient's medical records. Lab Data Attestation: I reviewed the patient's lab results. Result diagrams: 05/31/22 23:04 05/31/22 23:04 Labs: Lab Results 05/31/22 05/31/22 05/31/22 Range/Units 23:02 23:04 23:04 WBC 8.8 (4.8-10.8) X10*3/uL RBC 3.07 L D (4.60-5.80) X10*6/uL Hgb 8.6 L (14.0-18.0) g/dl Hct 27.5 L D (42.0-52.0) % MCV 89.6 (80.0-98.0) fL MCH 28.0 (27.0-33.0) pg MCHC 31.3 (31.0-36.0) g/dl RDW 18.4 H (11.0-16.0) % Plt Count 171 D (160-400) X10*3/uL MPV 9.2 L (9.4-12.4) fL Immature Gran % (Auto) 0.3 (0.0-0.4) % Neut % (Auto) 77.6 H (45-73) % Lymph % (Auto) 10.1 L (20-40) % [place] % (Auto) 11.2 H (2-11) % Eos % (Auto) 0.3 (0-4) % Baso % (Auto) 0.5 (0-2) % Lymph # (Auto) 0.9 L (1.2-4.9) X10*3/uL [place] # (Auto) 1.0 (0.1-1.2) X10*3/uL Eos # (Auto) 0.0 (0.0-0.4) X10*3/uL Baso # (Auto) 0.0 (0.0-0.2) X10*3/uL Abs Immat Gran (auto) 0.03 (0.00-0.03) X10*3/uL Absolute Neuts (auto) 6.8 (2.0-8.3) x10*3/uL Absolute Nucleated RBC 0.000 (0.0-0.012) X10*3/uL Nucleated RBC % (auto) 0.0 (0.0-0.2) /100WBC PT 10.5 (10.0-13.1) SEC INR 0.9 (0.9-1.1) Sodium (135-145) mmol/L Potassium (3.3-5.1) mmol/L Chloride (96-108) mmol/L Carbon Dioxide (22-29) mmol/L Anion Gap (12-20) BUN (9-16) mg/dL Creatinine (0.5-1.4) mg/dL Estim Creat Clear Calc Estimated GFR Random Glucose (60-115) mg/dL Calcium (8.4-10.2) mg/dL Magnesium (1.6-2.6) mg/dL Total Bilirubin (0.0-1.0) mg/dL Direct Bilirubin (0.0-0.5) mg/dL AST (5-37) U/L ALT (0-40) U/L Alkaline Phosphatase (39-117) U/L Total Protein (6.5-8.0) g/dL Albumin (3.5-5.0) g/dL Urine Color Urine Appearance Urine pH (5.0-8.0) Ur Specific [place] (1.005-1.025) Urine Protein (NEG-TRACE) MG/DL Urine Glucose (UA) (NEG) MG/DL Urine Ketones (NEG) MG/DL Urine Blood (NEG) Urine Nitrite (NEG) Ur Leukocyte Esterase (NEG) Urine Opiates Screen (Not Detect) Urine Fentanyl Screen (Not Detect) Ur Barbiturates Screen (Not Detect) Ur Phencyclidine Scrn (Not Detect) Ur Amphetamines Screen (Not Detect) U Benzodiazepines Scrn (Not Detect) Urine Cocaine Screen (Not Detect) U Marijuana (THC) Screen (Not Detect) Ethyl Alcohol mg/dL COVID-19 (COLLEEN) Negative (Negative) COVID-19 Clin Com See Note 05/31/22 05/31/22 05/31/22 Range/Units 23:04 23:23 23:23 WBC (4.8-10.8) X10*3/uL RBC (4.60-5.80) X10*6/uL Hgb (14.0-18.0) g/dl Hct (42.0-52.0) % MCV (80.0-98.0) fL MCH (27.0-33.0) pg MCHC (31.0-36.0) g/dl RDW (11.0-16.0) % Plt Count (160-400) X10*3/uL MPV (9.4-12.4) fL Immature Gran % (Auto) (0.0-0.4) % Neut % (Auto) (45-73) % Lymph % (Auto) (20-40) % [place] % (Auto) (2-11) % Eos % (Auto) (0-4) % Baso % (Auto) (0-2) % Lymph # (Auto) (1.2-4.9) X10*3/uL [place] # (Auto) (0.1-1.2) X10*3/uL Eos # (Auto) (0.0-0.4) X10*3/uL Baso # (Auto) (0.0-0.2) X10*3/uL Abs Immat Gran (auto) (0.00-0.03) X10*3/uL Absolute Neuts (auto) (2.0-8.3) x10*3/uL Absolute Nucleated RBC (0.0-0.012) X10*3/uL Nucleated RBC % (auto) (0.0-0.2) /100WBC PT (10.0-13.1) SEC INR (0.9-1.1) Sodium 134 L (135-145) mmol/L Potassium 4.2 (3.3-5.1) mmol/L Chloride 102 (96-108) mmol/L Carbon Dioxide 23 (22-29) mmol/L Anion Gap 13 (12-20) BUN 10 (9-16) mg/dL Creatinine 0.75 (0.5-1.4) mg/dL Estim Creat Clear Calc 88.4 Estimated GFR > 60 Random Glucose 118 H D (60-115) mg/dL Calcium 8.4 (8.4-10.2) mg/dL Magnesium 1.8 (1.6-2.6) mg/dL Total Bilirubin 0.7 (0.0-1.0) mg/dL Direct Bilirubin 0.3 (0.0-0.5) mg/dL AST 21 D (5-37) U/L ALT 27 (0-40) U/L Alkaline Phosphatase 56 D (39-117) U/L Total Protein 7.0 (6.5-8.0) g/dL Albumin 4.2 (3.5-5.0) g/dL Urine Color YELLOW Urine Appearance CLEAR Urine pH 6.0 (5.0-8.0) Ur Specific [place] 1.025 (1.005-1.025) Urine Protein NEG (NEG-TRACE) MG/DL Urine Glucose (UA) NEG (NEG) MG/DL Urine Ketones 15 (NEG) MG/DL Urine Blood NEG (NEG) Urine Nitrite NEG (NEG) Ur Leukocyte Esterase NEG (NEG) Urine Opiates Screen Not Detected (Not Detect) Urine Fentanyl Screen Not Detected (Not Detect) Ur Barbiturates Screen Not Detected (Not Detect) Ur Phencyclidine Scrn Not Detected (Not Detect) Ur Amphetamines Screen Not Detected (Not Detect) U Benzodiazepines Scrn Not Detected (Not Detect) Urine Cocaine Screen Not Detected (Not Detect) U Marijuana (THC) Screen Not Detected (Not Detect) Ethyl Alcohol < 10 mg/dL COVID-19 (COLLEEN) (Negative) COVID-19 Clin Com Critical Care Time Critical Care Time Critical Care Time: Yes Total Critical Care Time: 35 Attestation: I have personally provided critical care time exclusive of time spent on separately billable procedures. Time includes review of lab data, radiology results, discussion with consultants, and monitoring for potential decompensation. Intervention performed as documented. Discharge Plan Discharge Clinical Impression: Intertrochanteric fracture of femur Qualifiers: Encounter type: initial encounter Fracture type: closed Fracture alignment: nondisplaced Laterality: right Qualified Code(s): S72.144A - Nondisplaced intertrochanteric fracture of right femur, initial encounter for closed fracture Patient Disposition: Admitted As Inpatient
[2022-05-31] MEDS: chlordiazePOXIDE HCl 25 MG CAPSULE 50 MG PO (20:49)
--- NOTE | 2022-05-31 20:59 | ECG_ITS ---
Test Reason : cp Blood Pressure : / mmHG Vent. Rate : 078 BPM Atrial Rate : 078 BPM P-R Int : 146 ms QRS Dur : 080 ms QT Int : 418 ms P-R-T Axes : 069 063 073 degrees QTc Int : 476 ms Normal sinus rhythm Minimal voltage criteria for LVH, may be normal variant ( Sokolow-Bowie ) Borderline ECG When compared with ECG of 03-APR-2022 05:17, No significant change was found Referred By: Valerie Taylor Electronically Signed By:Fortunato Bedolla
[2022-05-31 23:10] LABS: MANUAL DIFF FLAG NO
[2022-05-31 23:11] LABS: Basophils Percent Auto 0.5 % (0-2); Eosinophils Percent Auto 0.3 % (0-4); Hematocrit 27.5 % (42.0-52.0); Hemoglobin 8.6 g/dl (14.0-18.0); Imm Gran Abs Auto 0.03 X10*3/uL (0.00-0.03); Imm Gran Pct Auto 0.3 % (0.0-0.4); Lymphocytes Absolute Auto 0.9 X10*3/uL (1.2-4.9); Lymphocytes Percent Auto 10.1 % (20-40); Mean Corpuscular HGB Conc 31.3 g/dl (31.0-36.0); Mean Corpuscular Volume 89.6 fL (80.0-98.0); Mean Platelet Volume 9.2 fL (9.4-12.4); Monocytes Percent Auto 11.2 % (2-11); Neutrophils Absolute Auto 6.8 x10*3/uL (2.0-8.3); Neutrophils Percent Auto 77.6 % (45-73); Platelet Count 171 X10*3/uL (160-400); Red Blood Count 3.07 X10*6/uL (4.60-5.80); Red Cell Distribution Width 18.4 % (11.0-16.0); White Blood Count 8.8 X10*3/uL (4.8-10.8)
[2022-05-31 23:18] LABS: INTERNATIONAL NORM RATIO 0.9 (0.9-1.1); Prothrombin Time 10.5 SEC (10.0-13.1)
[2022-05-31] MEDS: PHENobarbitaL 200 MG, PHENobarbitaL 30 MG 230 MG PO (23:23)
[2022-05-31] MEDS: Acetaminophen 325 MG TABLET 975 MG PO (23:25)
[2022-05-31 23:27] VITALS: BP 149/77; PULSE 103; RESP 18; TEMP 36.3; O2SAT 97
[2022-05-31 23:28] LABS: Alanine Aminotransferase 27 U/L (0-40); Albumin Level 4.2 g/dL (3.5-5.0); Alkaline Phosphatase 56 U/L (39-117); Anion Gap 13 (12-20); Aspartate Amino Transferase 21 U/L (5-37); Bilirubin Direct 0.3 mg/dL (0.0-0.5); Bilirubin Total 0.7 mg/dL (0.0-1.0); Blood Urea Nitrogen 10 mg/dL (9-16); Calcium 8.4 mg/dL (8.4-10.2); Carbon Dioxide 23 mmol/L (22-29); Chloride 102 mmol/L (96-108); Creatinine Clr Calc Pharmacy 88.4; Estimated Glomerular Filt Rate > 60; Ethanol < 10 mg/dL; Glucose Random 118 mg/dL (60-115); Magnesium 1.8 mg/dL (1.6-2.6); Potassium 4.2 mmol/L (3.3-5.1); Sodium 134 mmol/L (135-145)
[2022-05-31 23:32] LABS: COVID-19 Test Negative (Negative); IDNOW Serial# 55D5AD1C
[2022-05-31 23:37] LABS: Appearance Urine CLEAR; Color Urine YELLOW; Glucose Urine UA NEG (NEG); Leukocyte Esterase Urine NEG (NEG); Nitrite Urine NEG (NEG); Specific Gravity - Urine 1.025 (1.005-1.025); Urine Blood NEG (NEG); Urine Ketones 15 MG/DL (NEG); Urine Protein NEG (NEG-TRACE)
[2022-05-31 23:48] LABS: Amphetamine Screen Urine Not Detected (Not Detect); Barbiturates, Urine Not Detected (Not Detect); Benzodiazepines Screen Urine Not Detected (Not Detect); Cannabinoid Screen Urine Not Detected (Not Detect); Cocaine Screen Urine Not Detected (Not Detect); Fentanyl, urine Not Detected (Not Detect); Opiate Screen Urine Not Detected (Not Detect); Phencyclidine Screen Urine Not Detected (Not Detect)
--- NOTE | 2022-05-31 23:56 | P.HPHOSP_ITS ---
History of Present Illness Date of Service: 05/31/22 Chief Complaint: Fall 61-year-old male with a past medical history of hypertension, diabetes, alcohol abuse, anemia, history of GI bleed presented to the hospital today with a chief complaint of fall. Patient reported that he was denies SOB, he tripped and fell on the stairs, he tried to get up and fell for the 2nd time on the cup; landed on the hip; followe d by had severe pain in the hip not able to move; subsequently EMS was called in and sent him to the hospital for further evaluation. Denies any numbness tingling or focal weakness. Patient reports that he drinks alcohol frequently, last drink was the night before. Denies any chest pain or palpitations. Denies any fever chills cough or shortness of breath. Denies any GI symptoms. Review of all other systems is negative except mentioned above ER course: Per ER team patient noted to have right hip pain; x-ray showed right femoral intertrochanteric fracture. CT head and CT C-spine showed no acute findings. Chest x-ray showed finding consistent with COPD. ER team mentioned that patient appeared to mildly tremulous, started on phenobarb protocol for possible alcohol withdrawal. ER team also notified orthopedics Dr. Goldsmith- suggested admission to the medicine service and to be evaluated in the morning for possible surgery. [facility] Medical History Alcohol abuse Alcohol abuse Anemia Diabetes GIB (gastrointestinal bleeding) Hypertension Surgical History No history of previous surgery Social History Household Members: Unknown / Unable to assess Housing: Unknown / Unable to assess Do you presently have visiting nurse or other home services: No Unable to assess alcohol history related to: Unknown Alcohol intake: current Alcohol intake frequency: 3 or more drinks per day Alc ohol type: beer Patient Tobacco Use Status: Tobacco use Unknown Tobacco use type: Cigarette Cigarette Packs Per Day: 1 Cigarettes Per Day: 20.0 service: No Current occupational status: disabled Meds Allergies Allergy/AdvReac Type Severity Reaction Status Date / Time lisinopril [LISINOPRIL] Allergy Intermediate ANGIOEDEMA Verified 04/08/22 02:50 codeine [CODEINE] AdvReac Mild NAUSEA & Verified 04/08/22 02:50 VOMITING Active Medications: Current Medications Pharmacy Consult (Consult Rx Perform Med Rec) 1 each MISCELLANE ONCE PRN PRN Reason: Consult order Pharmacy Consult (Consult Rx Etoh Phenob Po Only) 1 each MISCELLANE ONCE PRN; Protocol PRN Reason: Consult order Pharmacy Consult (Consult Rx Perform Med Rec) 1 each MISCELLANE ONCE PRN PRN Reason: Consult order Phenobarbital 100 mg/Phenobarbital 60 mg/Phenobarbital 15 mg 175 mg PO Q3H BABITA Stop: 06/01/22 05:01 Phenobarbital (Phenobarbital 15 Mg Tablet) 45 mg PO BID BABITA Stop: 06/03/22 09:01 Phenobarbital (Phenobarbital 30 Mg Tablet) 30 mg PO BID BABITA Stop: 06/05/22 09:01 Phenobarbital (Phenobarbital 30 Mg Tablet) 30 mg PO DAILY BABITA Stop: 06/07/22 09:01 Home Medications Medication Instructions Recorded Confirmed Last Taken Type metoprolol tartrate 50 mg tablet 1 tab PO BID 06/01/22 06/01/22 Unknown History Physical Exam Vital Signs and Narrative: Vital Signs: Last Vital Signs Temp 97.4 F 05/31/22 23:27 Pulse 103 H 05/31/22 23:27 Resp 18 05/31/22 23:27 BP 149/77 H 05/31/22 23:27 Pulse Ox 97 05/31/22 23:27 O2 Del Method 05/31/22 23:27 BMI result Body Mass Index 19.2 Gen: Appears be in no acute distress HEENT: NCAT, Moist mucosa. Pulmonary: Vesicular breath sounds, fair air entry CVS: Normal S1-S2 Abdomen: BS+, Soft, Nontender Extremities: Warm well perfused ; RLE exam limited secondary to the pain. Neuro: Alert and awake. Results Labs CBC and Chem 7: 06/04/22 11:40 06/04/22 05:34 Labs: Laboratory Results - last 24 hr 05/31/22 05/31/22 05/31/22 23:02 23:04 23:04 MCV 89.6 MCH 28.0 MCHC 31.3 RDW 18.4 H Plt Count 171 D MPV 9.2 L Immature Gran % (Auto) 0.3 Neut % (Auto) 77.6 H Lymph % (Auto) 10.1 L [place] % (Auto) 11.2 H Eos % (Auto) 0.3 Baso % (Auto) 0.5 Lymph # (Auto) 0.9 L [place] # (Auto) 1.0 Eos # (Auto) 0.0 Baso # (Auto) 0.0 Abs Immat Gran (auto) 0.03 Absolute Neuts (auto) 6.8 Absolute Nucleated RBC 0.000 Nucleated RBC % (auto) 0.0 PT 10.5 INR 0.9 Anion Gap Estim Creat Clear Calc Estimated GFR Random Glucose Calcium Magnesium Total Bilirubin Direct Bilirubin AST ALT Alkaline Phosphatase Total Protein Albumin Urine Color Urine Appearance Urine pH Ur Specific [place] Urine Protein Urine Glucose (UA) Urine Ketones Urine Blood Urine Nitrite Ur Leukocyte Esterase Urine Opiates Screen Urine Fentanyl Screen Ur Barbiturates Screen Ur Phencyclidine Scrn Ur Amphetamines Screen U Benzodiazepines Scrn Urine Cocaine Screen U Marijuana (THC) Screen Ethyl Alcohol COVID-19 (COLLEEN) Negative COVID-19 Clin Com See Note 05/31/22 05/31/22 05/31/22 23:04 23:23 23:23 MCV MCH MCHC RDW Plt Count MPV Immature Gran % (Auto) Neut % (Auto) Lymph % (Auto) [place] % (Auto) Eos % (Auto) Baso % (Auto) Lymph # (Auto) [place] # (Auto) Eos # (Auto) Baso # (Auto) Abs Immat Gran (auto) Absolute Neuts (auto) Absolute Nucleated RBC Nucleated RBC % (auto) PT INR Anion Gap 13 Estim Creat Clear Calc 88.4 Estimated GFR > 60 Random Glucose 118 H D Calcium 8.4 Magnesium 1.8 Total Bilirubin 0.7 Direct Bilirubin 0.3 AST 21 D ALT 27 Alkaline Phosphatase 56 D Total Protein 7.0 Albumin 4.2 Urine Color YELLOW Urine Appearance CLEAR Urine pH 6.0 Ur Specific [place] 1.025 Urine Protein NEG Urine Glucose (UA) NEG Urine Ketones 15 Urine Blood NEG Urine Nitrite NEG Ur Leukocyte Esterase NEG Urine Opiates Screen Not Detected Urine Fentanyl Screen Not Detected Ur Barbiturates Screen Not Detected Ur Phencyclidine Scrn Not Detected Ur Amphetamines Screen Not Detected U Benzodiazepines Scrn Not Detected Urine Cocaine Screen Not Detected U Marijuana (THC) Screen Not Detected Ethyl Alcohol < 10 COVID-19 (COLLEEN) COVID-19 Clin Com Imaging Radiologist's Impressions: Impressions Chest X-Ray 05/31/22 21:15 IMPRESSION: Extensive emphysematous changes bilaterally with an appearance similar to the 04/03/2022 study. No acute superimposed process Hip/Pelvis X-Ray 05/31/22 21:15 IMPRESSION: Comminuted not significantly displaced intertrochanteric right femur fracture. Cervical Spine CT 05/31/22 21:44 IMPRESSION: 1. Straightening of the normal cervical lordosis may be secondary to positioning and/or muscle spasm. 2. Degenerative changes as detailed above without significant interval change. No definitive acute abnormality. 3. Biapical cystic changes and scarring is similar to previous studies. Fleischner guidelines were followed. . Head CT 05/31/22 21:44 IMPRESSION: Limited study without overt acute intracranial abnormality. If clinically indicated, a repeat study should be considered when the patient can better cooperate for the study. Assessment and Plan (1) Intertrochanteric fracture of femur: Qualifiers: Encounter type: initial encounter Fracture alignment: nondisplaced Fracture type: closed Laterality: right Qualified Code(s): S72.144A - Nondisplaced intertrochanteric fracture of right femur, initial encounter for closed fracture Status: Acute Plan 61-year-old male with a past medical history of hypertension, diabetes, alcohol abuse, anemia, history of GI bleed presented to the hospital today with a chief complaint of fall. sustained a right femoral intertrochanteric fracture. Admitted for further management Mechanical Fall: Right Femur inter trochantericFracture: Orthopedics team aware of pt. pain control Neurovascularly intact. Alcohol Abuse/Withdrawal: CIWA monitoring. Phenobarbital Started in ER. Thiamine, folate, Multi vitamins. Preop evaluation: Patient is low risk for intermediate risk surgery. Patient is on phenobarb for alcohol withdrawal monitoring. History of Hypertension: c/w home amlodipine History of ?Diabetes:Hba1c. ISS. Monitor POC glucose. DVT prophylaxis: Subcu heparin Code status: Full code Quality Stroke Does the patient have a stroke diagnosis?: No VTE Prior VTE?: No VTE Risk Level:: Medical - moderate - high VTE Device Contraindication: Treatment Not Indicated VTE Drug Contraindication: N/A - Med Ordered
[2022-06-01] VITALS (14 sets, daily range): BP systolic 137–189; BP diastolic 70–96; PULSE 71–89; RESP 12–18; TEMP 36.3–37.1; O2SAT 98–100; BMI 19.9
[2022-06-01] MEDS: 0.9 % Sodium Chloride 1,000 ML 100 ML IVCONT ×2 (00:35→15:14)
[2022-06-01] MEDS: Heparin Sodium,Porcine 5,000 UNIT/ML VIAL 5000 UNIT SUBCUT ×3 (00:35→23:06)
--- NOTE | 2022-06-01 05:35 | PC.NURSE ---
pt medicated per Jan. pt repositioned for comfort. Will continue to monitor.
[2022-06-01 07:32] LABS: MANUAL DIFF FLAG NO
[2022-06-01 07:33] LABS: Basophils Percent Auto 0.5 % (0-2); Eosinophils Absolute Auto 0.1 X10*3/uL (0.0-0.4); Hematocrit 28.1 % (42.0-52.0); Hemoglobin 8.6 g/dl (14.0-18.0); Imm Gran Abs Auto 0.03 X10*3/uL (0.00-0.03); Imm Gran Pct Auto 0.4 % (0.0-0.4); Lymphocytes Absolute Auto 1.3 X10*3/uL (1.2-4.9); Lymphocytes Percent Auto 17.1 % (20-40); Mean Corpuscular HGB Conc 30.6 g/dl (31.0-36.0); Mean Corpuscular Hemoglobin 27.7 pg (27.0-33.0); Mean Corpuscular Volume 90.6 fL (80.0-98.0); Monocytes Absolute Auto 1.1 X10*3/uL (0.1-1.2); Monocytes Percent Auto 14.4 % (2-11); Neutrophils Absolute Auto 5.2 x10*3/uL (2.0-8.3); Neutrophils Percent Auto 66.6 % (45-73); Platelet Count 170 X10*3/uL (160-400); Red Cell Distribution Width 18.2 % (11.0-16.0); White Blood Count 7.7 X10*3/uL (4.8-10.8)
[2022-06-01 07:48] LABS: Anion Gap 13 (12-20); Blood Urea Nitrogen 8 mg/dL (9-16); Calcium 8.2 mg/dL (8.4-10.2); Carbon Dioxide 22 mmol/L (22-29); Chloride 103 mmol/L (96-108); Creatinine Clr Calc Pharmacy 88.4; Estimated Glomerular Filt Rate > 60; Glucose Random 103 mg/dL (60-115); Potassium 3.7 mmol/L (3.3-5.1); Sodium 134 mmol/L (135-145)
--- NOTE | 2022-06-01 07:49 | PHA.MEDREC ---
Pharmacy Consult ? Medication Reconciliation Pharmacy has completed the medication reconciliation. Spoke to patient, he states he only takes metoprolol and cannot recall the last time he took it. Patients claim history shows recent prescriptions of amlodipine, iron, omeprazole and folic acid.
[2022-06-01 07:58] LABS: Estimated Average Glucose 91 mg/dL; Hemoglobin A1c % 4.8 %
--- NOTE | 2022-06-01 07:59 | PM.CNOR ---
History of Present Illness HPI Consult date: 06/01/22 Chief complaint: Hip fracture Narrative: Mr. Jonathan eduardo a 61 year old male who presented to the ED after sustaining a mechanical fall. X-rays obtained in the ED were significant for a right hip intertrochanteric fracture. The patient was admitted to the medicine service and orthopedics was consulted for further evaluation and treatment. He has a past medical history significant for ETOH abuse, anemia, diabetes, GI bleed, and HTN. He lives with two additional room mates and reports that the landlord watches over them. Denies walking with any assistive devices. Review of Systems Review of Systems: Yes all other systems are reviewed and are negative PMF Past Medical History Medical History Alcohol abuse Diabetes Hypertension Surgical History Surgical History No history of previous surgery Social History Social History Household Members: None Housing: Homeless Unable to assess alcohol history related to: Unknown Alcohol intake: current Alcohol intake frequency: 3 or more drinks per day Alcohol type: beer Patient Tobacco Use Status: Current everyday Tobacco user Tobacco use type: Cigarette Advance Directives: No Advance Directives Information Provided: No service: No Current occupational status: disabled Meds Allergies Allergy/AdvReac Type Severity Reaction Status Date / Time lisinopril [LISINOPRIL] Allergy Intermediate ANGIOEDEMA Verified 04/08/22 02:50 codeine [CODEINE] AdvReac Mild NAUSEA & Verified 04/08/22 02:50 VOMITING Active Medications: Current Medications Amlodipine Besylate (Amlodipine Besylate 5 Mg Tablet) 5 mg PO DAILY [facility]; Protocol Dextrose (Dextrose 50 % 25 Gm/50 Ml Syringe) 25 gm IVPUSH Q15M PRN; Protocol PRN Reason: per Hypoglycemia Standing Ord. Folic Acid (Folic Acid 1 Mg Tablet) 1 mg PO DAILY [facility] Stop: 06/04/22 08:59 Glucose (Glucose Gel 15 Gm Gel..Gram.) 15 gm PO Q15M PRN; Protocol PRN Reason: per Hypoglycemia Standing Ord. Heparin Sodium (Porcine) (Heparin Sodium,Porcine 5,000 Unit/Ml Vial) 5,000 unit SUBCUT Q8H [facility] Last Admin: 06/01/22 00:35 Dose: 5,000 unit Hydromorphone HCl (Hydromorphone Hcl 0.5 Mg/0.5 Ml Syringe) 0.5 mg IVPUSH Q4H PRN; Protocol PRN Reason: Pain, Severe (Pain Scale 7-10) Sodium Chloride (Ns) 1,000 mls @ 100 mls/hr IVCONT .Q10H [facility] Last Admin: 06/01/22 00:35 Dose: 100 mls/hr Cefazolin Sodium/Dextrose (Ancef) 2 gm in 50 mls @ 100 mls/hr IV PREOP ONE Stop: 06/01/22 08:27 Insulin Human Lispro (Insulin Lispro 100 Unit/Ml 3 Ml Vial) 0.1 - 10 unit SUBCUT QIDACHS [facility]; Protocol Melatonin (Melatonin 3 Mg Tablet) 6 mg PO BEDTIME PRN PRN Reason: Insomnia Metoprolol Tartrate (Metoprolol Tartrate 50 Mg Tablet) 50 mg PO BID [facility]; Protocol Multivitamins/Vitamin C (Multivitamin Tablet) 1 tab PO DAILY [facility] Stop: 06/04/22 08:59 Omeprazole (Omeprazole 40 Mg Capsule.Dr) 40 mg PO BID@0630,1630 [facility] Pharmacy Consult (Consult Rx Perform Med Rec) 1 each MISCELLANE ONCE PRN PRN Reason: Consult order Pharmacy Consult (Consult Rx Etoh Phenob Po Only) 1 each MISCELLANE ONCE PRN; Protocol PRN Reason: Consult order Pharmacy Consult (Consult Rx Perform Med Rec) 1 each MISCELLANE ONCE PRN PRN Reason: Consult order Phenobarbital (Phenobarbital 15 Mg Tablet) 45 mg PO BID [facility] Stop: 06/03/22 09:01 Phenobarbital (Phenobarbital 30 Mg Tablet) 30 mg PO BID [facility] Stop: 06/05/22 09:01 Phenobarbital (Phenobarbital 30 Mg Tablet) 30 mg PO DAILY [facility] Stop: 06/07/22 09:01 Senna (Sennosides 8.6 Mg Tablet) 17.2 mg PO BEDTIME PRN PRN Reason: Constipation Sodium Chloride (0.9 % Sodium Chloride Flush 3 Ml Syringe) 3 ml IVFLUSH QSHIFT [facility] Last Admin: 06/01/22 00:43 Dose: Not Given Thiamine HCl (Thiamine Hcl 100 Mg Tablet) 100 mg PO DAILY [facility] Stop: 06/04/22 08:59 Home Medications Medication Instructions Recorded Confirmed Last Taken Type metoprolol tartrate 50 mg tablet 1 tab PO BID 06/01/22 06/01/22 Unknown History Physical Exam Vital Signs: Vital Signs: Last Vital Signs Temp 97.4 F 05/31/22 23:27 Pulse 78 06/01/22 06:00 Resp 16 06/01/22 05:33 BP 160/81 H 06/01/22 06:00 Pulse Ox 100 06/01/22 06:00 O2 Del Method 06/01/22 05:33 BMI result Body Mass Index 19.2 Const: General: cooperative, healthy appearing, comfortable, no acute distress, well developed, alert and awake Orientation/consciousness: patient oriented x3 HEENT: Head: Yes normal to inspection, Yes normocephalic and Yes atraumatic Eyes: General: appearance normal, both eyes and all related structures Neck: Neck: Yes normal visual inspection and Yes no lymphadenopathy Resp: Effort & Inspection: normal respiratory effort and able to speak in complete sentences Cardio: Rate: regular rate Peripheral pulses: Peripheral pulses 2+ throughout GI: Inspection: Yes normal to inspection Palpation (GI): Soft to palpation Skin: General skin exam: no rashes or lesions noted Neuro: General: patient oriented x3 Extrem: Other: Right hip skin intact with no abrasions or lesions. No pain with log roll. NVI. Psych: Mental Status: mental status grossly normal Results Labs Result Diagrams: 06/01/22 07:28 06/01/22 07:28 Labs: Abnormal lab results 05/31/22 05/31/22 06/01/22 Range/Units 23:04 23:04 07:28 RBC 3.07 L D 3.10 L (4.60-5.80) X10*6/uL Hgb 8.6 L 8.6 L (14.0-18.0) g/dl Hct 27.5 L D 28.1 L (42.0-52.0) % MCHC 30.6 L (31.0-36.0) g/dl RDW 18.4 H 18.2 H (11.0-16.0) % MPV 9.2 L 9.0 L (9.4-12.4) fL Neut % (Auto) 77.6 H (45-73) % Lymph % (Auto) 10.1 L 17.1 L (20-40) % [place] % (Auto) 11.2 H 14.4 H (2-11) % Lymph # (Auto) 0.9 L (1.2-4.9) X10*3/uL Sodium 134 L (135-145) mmol/L BUN (9-16) mg/dL Random Glucose 118 H D (60-115) mg/dL Calcium (8.4-10.2) mg/dL 06/01/22 Range/Units 07:28 RBC (4.60-5.80) X10*6/uL Hgb (14.0-18.0) g/dl Hct (42.0-52.0) % MCHC (31.0-36.0) g/dl RDW (11.0-16.0) % MPV (9.4-12.4) fL Neut % (Auto) (45-73) % Lymph % (Auto) (20-40) % [place] % (Auto) (2-11) % Lymph # (Auto) (1.2-4.9) X10*3/uL Sodium 134 L (135-145) mmol/L BUN 8 L (9-16) mg/dL Random Glucose (60-115) mg/dL Calcium 8.2 L (8.4-10.2) mg/dL H & H 05/31/22 06/01/22 Range/Units 23:04 07:28 Hgb 8.6 L 8.6 L (14.0-18.0) g/dl Hct 27.5 L D 28.1 L (42.0-52.0) % Coagulation 05/31/22 Range/Units 23:04 INR 0.9 (0.9-1.1) All other labs normal. Assessment and Plan (1) Intertrochanteric fracture of femur: Qualifiers: Encounter type: initial encounter Fracture alignment: nondisplaced Fracture type: closed Laterality: right Qualified Code(s): S72.144A - Nondisplaced intertrochanteric fracture of right femur, initial encounter for closed fracture Status: Acute Plan I discussed the case with Dr. Goldsmith and explained the extent of the injury to the patient and options available which include surgical intervention. I explained the procedure in detail along with the length of recovery and rehab course. I explained the risk, benefits and alternatives. Risk including, but not limited to infection, blood clots, bleeding, non union or malunion and nerve/tissue damage to surrounding areas. I answered all their questions and with their understanding they have consented to move forward with Operative Fixation of the right hip. The patient will be T&S, med clearance obtained and will remain NPO. Procedures Date of Service Date of Service: 06/01/22
[2022-06-01 09:02] LABS: Glucose, Whole Blood 91 mg/dL (60-115)
[2022-06-01 09:13] LABS: Glucose, Whole Blood 87 mg/dL (60-115)
--- NOTE | 2022-06-01 12:45 | P.CONAN_ITS ---
[facility] Active Problems Active Problems: All Active Problems (Updated 05/31/22 @ 23:02 by SCOTT Leyva) Intertrochanteric fracture of femur (Acute) Past Medical History Medical History Alcohol abuse Diabetes Hypertension Family History Family history of problems with anesthesia: No Surgical History Surgical History No history of previous surgery History of Problems with Anesthesia: No Social History Social History Household Members: None Housing: Homeless Unable to assess alcohol history related to: Unknown Alcohol intake: current Alcohol intake frequency: 3 or more drinks per day Alcohol type: beer Patient Tobacco Use Status: Current everyday Tobacco user Tobacco use type: Cigarette Cigarette Packs Per Day: 1 Cigarettes Per Day: 20.0 service: No Current occupational status: disabled Meds Allergies Allergy/AdvReac Type Severity Reaction Status Date / Time lisinopril [LISINOPRIL] Allergy Intermediate ANGIOEDEMA Verified 04/08/22 02:50 codeine [CODEINE] AdvReac Mild NAUSEA & Verified 04/08/22 02:50 VOMITING Active Medications: Current Medications Amlodipine Besylate (Amlodipine Besylate 5 Mg Tablet) 5 mg PO DAILY [facility]; Pro tocol Dextrose (Dextrose 50 % 25 Gm/50 Ml Syringe) 25 gm IVPUSH Q15M PRN; Protocol PRN Reason: per Hypoglycemia Standing Ord. Folic Acid (Folic Acid 1 Mg Tablet) 1 mg PO DAILY [facility] Stop: 06/04/22 08:59 Glucose (Glucose Gel 15 Gm Gel..Gram.) 15 gm PO Q15M PRN; Protocol PRN Reason: per Hypoglycemia Standing Ord. Heparin Sodium (Porcine) (Heparin Sodium,Porcine 5,000 Unit/Ml Vial) 5,000 unit SUBCUT Q8H [facility] Last Admin: 06/01/22 08:33 Dose: Not Given Hydromorphone HCl (Hydromorphone Hcl 0.5 Mg/0.5 Ml Syringe) 0.5 mg IVPUSH Q4H PRN; Protocol PRN Reason: Pain, Severe (Pain Scale 7-10) Sodium Chloride (Ns) 1,000 mls @ 100 mls/hr IVCONT .Q10H [facility] Last Admin: 06/01/22 00:35 Dose: 100 mls/hr Insulin Human Lispro (Insulin Lispro 100 Unit/Ml 3 Ml Vial) 0.1 - 10 unit SUBCUT QIDACHS [facility]; Protocol Last Admin: 06/01/22 08:32 Dose: Not Given Melatonin (Melatonin 3 Mg Tablet) 6 mg PO BEDTIME PRN PRN Reason: Insomnia Metoprolol Tartrate (Metoprolol Tartrate 50 Mg Tablet) 50 mg PO BID [facility]; Protocol Multivitamins/Vitamin C (Multivitamin Tablet) 1 tab PO DAILY [facility] Stop: 06/04/22 08:59 Omeprazole (Omeprazole 40 Mg Capsule.Dr) 40 mg PO BID@0630,1630 [facility] Last Admin: 06/01/22 08:32 Dose: Not Given Pharmacy Consult (Consult Rx Perform Med Rec) 1 each MISCELLANE ONCE PRN PRN Reason: Consult order Pharmacy Consult (Consult Rx Etoh Phenob Po Only) 1 each MISCELLANE ONCE PRN; Protocol PRN Reason: Consult order Pharmacy Consult (Consult Rx Perform Med Rec) 1 each MISCELLANE ONCE PRN PRN Reason: Consult order Phenobarbital (Phenobarbital 15 Mg Tablet) 45 mg PO BID [facility] Stop: 06/03/22 09:01 Phenobarbital (Phenobarbital 30 Mg Tablet) 30 mg PO BID [facility] Stop: 06/05/22 09:01 Phenobarbital (Phenobarbital 30 Mg Tablet) 30 mg PO DAILY [facility] Stop: 06/07/22 09:01 Senna (Sennosides 8.6 Mg Tablet) 17.2 mg PO BEDTIME PRN PRN Reason: Constipation Sodium Chloride (0.9 % Sodium Chloride Flush 3 Ml Syringe) 3 ml IVFLUSH QSHIFT [facility] Last Admin: 06/01/22 08:32 Dose: Not Given Thiamine HCl (Thiamine Hcl 100 Mg Tablet) 100 mg PO DAILY [facility] Stop: 06/04/22 08:59 Home Medications Medication Instructions Recorded Confirmed Last Taken Type metoprolol tartrate 50 mg tablet 1 tab PO BID 06/01/22 06/01/22 Unknown History Exam Exam Date and Time: June 01, 2022 1245 Height,Weight and Vital Signs: Height 5 ft 9 in Weight 61.235 kg Last Vital Signs Temp 98.2 F 06/01/22 08:57 Pulse 72 06/01/22 08:57 Resp 18 06/01/22 08:57 BP 173/90 H 06/01/22 08:57 Pulse Ox 98 06/01/22 08:57 O2 Del Method 06/01/22 08:57 Pertinent Lab Results Pertinent Lab Results: Laboratory Tests 05/31/22 05/31/22 05/31/22 23:02 23:04 23:04 WBC 8.8 RBC 3.07 L D Hgb 8.6 L Hct 27.5 L D MCV 89.6 MCH 28.0 MCHC 31.3 RDW 18.4 H Plt Count 171 D MPV 9.2 L Immature Gran % (Auto) 0.3 Neut % (Auto) 77.6 H Lymph % (Auto) 10.1 L [place] % (Auto) 11.2 H Eos % (Auto) 0.3 Baso % (Auto) 0.5 Lymph # (Auto) 0.9 L [place] # (Auto) 1.0 Eos # (Auto) 0.0 Baso # (Auto) 0.0 Abs Immat Gran (auto) 0.03 Absolute Neuts (auto) 6.8 Absolute Nucleated RBC 0.000 Nucleated RBC % (auto) 0.0 PT 10.5 INR 0.9 Sodium Potassium Chloride Carbon Dioxide Anion Gap BUN Creatinine Estim Creat Clear Calc Estimated GFR POC Glucose Random Glucose Estimat Average Glucose Hemoglobin A1c % Calcium Magnesium Total Bilirubin Direct Bilirubin AST ALT Alkaline Phosphatase Total Protein Albumin Urine Color Urine Appearance Urine pH Ur Specific [place] Urine Protein Urine Glucose (UA) Urine Ketones Urine Blood Urine Nitrite Ur Leukocyte Esterase Urine Opiates Screen Urine Fentanyl Screen Ur Barbiturates Screen Ur Phencyclidine Scrn Ur Amphetamines Screen U Benzodiazepines Scrn Urine Cocaine Screen U Marijuana (THC) Screen Ethyl Alcohol COVID-19 ([facility]) Negative COVID-19 Clin Com See Note Blood Type Antibody Screen 05/31/22 05/31/22 05/31/22 23:04 23:23 23:23 WBC RBC Hgb Hct MCV MCH MCHC RDW Plt Count MPV Immature Gran % (Auto) Neut % (Auto) Lymph % (Auto) [place] % (Auto) Eos % (Auto) Baso % (Auto) Lymph # (Auto) [place] # (Auto) Eos # (Auto) Baso # (Auto) Abs Immat Gran (auto) Absolute Neuts (auto) Absolute Nucleated RBC Nucleated RBC % (auto) PT INR Sodium 134 L Potassium 4.2 Chloride 102 Carbon Dioxide 23 Anion Gap 13 BUN 10 Creatinine 0.75 Estim Creat Clear Calc 88.4 Estimated GFR > 60 POC Glucose Random Glucose 118 H D Estimat Average Glucose Hemoglobin A1c % Calcium 8.4 Magnesium 1.8 Total Bilirubin 0.7 Direct Bilirubin 0.3 AST 21 D ALT 27 Alkaline Phosphatase 56 D Total Protein 7.0 Albumin 4.2 Urine Color YELLOW Urine Appearance CLEAR Urine pH 6.0 Ur Specific [place] 1.025 Urine Protein NEG Urine Glucose (UA) NEG Urine Ketones 15 Urine Blood NEG Urine Nitrite NEG Ur Leukocyte Esterase NEG Urine Opiates Screen Not Detected Urine Fentanyl Screen Not Detected Ur Barbiturates Screen Not Detected Ur Phencyclidine Scrn Not Detected Ur Amphetamines Screen Not Detected U Benzodiazepines Scrn Not Detected Urine Cocaine Screen Not Detected U Marijuana (THC) Screen Not Detected Ethyl Alcohol < 10 COVID-19 ([facility]) COVID-19 Clin Com Blood Type Antibody Screen 06/01/22 06/01/22 06/01/22 07:28 07:28 07:28 WBC 7.7 RBC 3.10 L Hgb 8.6 L Hct 28.1 L MCV 90.6 MCH 27.7 MCHC 30.6 L RDW 18.2 H Plt Count 170 MPV 9.0 L Immature Gran % (Auto) 0.4 Neut % (Auto) 66.6 Lymph % (Auto) 17.1 L [place] % (Auto) 14.4 H Eos % (Auto) 1.0 Baso % (Auto) 0.5 Lymph # (Auto) 1.3 [place] # (Auto) 1.1 Eos # (Auto) 0.1 Baso # (Auto) 0.0 Abs Immat Gran (auto) 0.03 Absolute Neuts (auto) 5.2 Absolute Nucleated RBC 0.000 Nucleated RBC % (auto) 0.0 PT INR Sodium 134 L Potassium 3.7 Chloride 103 Carbon Dioxide 22 Anion Gap 13 BUN 8 L Creatinine 0.75 Estim Creat Clear Calc 88.4 Estimated GFR > 60 POC Glucose Random Glucose 103 Estimat Average Glucose 91 Hemoglobin A1c % 4.8 Calcium 8.2 L Magnesium Total Bilirubin Direct Bilirubin AST ALT Alkaline Phosphatase Total Protein Albumin Urine Color Urine Appearance Urine pH Ur Specific [place] Urine Protein Urine Glucose (UA) Urine Ketones Urine Blood Urine Nitrite Ur Leukocyte Esterase Urine Opiates Screen Urine Fentanyl Screen Ur Barbiturates Screen Ur Phencyclidine Scrn Ur Amphetamines Screen U Benzodiazepines Scrn Urine Cocaine Screen U Marijuana (THC) Screen Ethyl Alcohol COVID-19 ([facility]) COVID-19 Clin Com Blood Type Antibody Screen 06/01/22 06/01/22 06/01/22 08:31 08:31 09:09 WBC RBC Hgb Hct MCV MCH MCHC RDW Plt Count MPV Immature Gran % (Auto) Neut % (Auto) Lymph % (Auto) [place] % (Auto) Eos % (Auto) Baso % (Auto) Lymph # (Auto) [place] # (Auto) Eos # (Auto) Baso # (Auto) Abs Immat Gran (auto) Absolute Neuts (auto) Absolute Nucleated RBC Nucleated RBC % (auto) PT INR Sodium Potassium Chloride Carbon Dioxide Anion Gap BUN Creatinine Estim Creat Clear Calc Estimated GFR POC Glucose 91 87 Random Glucose Estimat Average Glucose Hemoglobin A1c % Calcium Magnesium Total Bilirubin Direct Bilirubin AST ALT Alkaline Phosphatase Total Protein Albumin Urine Color Urine Appearance Urine pH Ur Specific [place] Urine Protein Urine Glucose (UA) Urine Ketones Urine Blood Urine Nitrite Ur Leukocyte Esterase Urine Opiates Screen Urine Fentanyl Screen Ur Barbiturates Screen Ur Phencyclidine Scrn Ur Amphetamines Screen U Benzodiazepines Scrn Urine Cocaine Screen U Marijuana (THC) Screen Ethyl Alcohol COVID-19 ([facility]) COVID-19 Clin Com Blood Type A Negative Antibody Screen NEGATIVE Airway Mallampati Class: III TM Dist: >3cm Neck ROM: Full Loose/Missing/Broken Teeth: Yes, Upper and Lower Assessment and Plan Assessment Anesthesia Assessment: Anesthesia Plan Discussed, Smoking Cess. Discussed and Chart Reviewed Final Anesthetic Review Family History of Problems with Anesthesia: No History of Problems with Anesthesia: No NPO: Yes ASA Class: III and Emergency Final Preanesthetic Review: No Changes in Pt Med Stat, Meds/Allgs Chart Re viewed, Consent Obtained/Reviewed and Anes Risks/Benef Reviewed Patient Risk: High Procedure Risk: Intermediate Anesthetic Plan Anesthetic Plan: GA Disposition: Standard PACU and Inp. Admit - Standard Bed
--- NOTE | 2022-06-01 12:50 | MHC.SHP ---
Pre-Procedural Eval Section A Date of Service: 06/01/22 Section B Chief Complaint: Hip fracture Allergies: Allergies Allergy/AdvReac Type Severity Reaction Status Date / Time lisinopril [LISINOPRIL] Allergy Intermediate ANGIOEDEMA Verified 04/08/22 02:50 codeine [CODEINE] AdvReac Mild NAUSEA & Verified 04/08/22 02:50 VOMITING Exam Exam Comment: The patient was seen at the bedside. His right hip is noted to be somewhat externally rotated. Sensation intact to the foot and he can wiggle his toes. The skin about the incision site was noted to be without any skin lesions or injuries. Plan I have reviewed the history and physical and performed a pertinent physical examination on my patient. No changes have occurred unless specified. The risks and benefits of operative treatment were discussed with the patient and the patient wishes to proceed with surgery. These risks include, but are not limited to risk of damage to blood vessels, nerves, tendons, infection, recurrence, incomplete relief of preoperative symptoms, persistent pain, possible need for further surgery and the risks associated with regional blocks and anesthesia. The plan is to take the patient to the operating room today for the following procedures: 1. Right hip fracture fixation 2. [ ] All of the preoperative paperwork including the consent was filled out today. All the patient's questions were answered.
--- NOTE | 2022-06-01 12:51 | W.PM.OPN ---
Operative Note Operative Note Date of Service: 06/01/22 Narrative: Operative Note Narrative: Preop diagnosis: 1. Right Inter trochanteric hip fracture Postop diagnosis: Same Procedure: 1. Right Short femoral IM nailing Surgeon: Jia Goldsmith MD Anesthesia: General Anesthesia Findings: Intertrochanteric hip fracture Implants: Right Sophia short Gamma 3 intramedullary femoral nail 11 mm x 180 mm, 125 degrees, set screw, 10.5 x 95 mm lag screw,, and a 5.5 cortical distal locking screw EBL: 20.0 ml Specimen: none Drains: None Complications: None Disposition: Brought to the recovery room in stable condition Plan: Admit back to floor. Weightbear as tolerated. Follow-up in 10-14 days for wound check, suture removal pre clinic radiographs Indications: The patient is 61 years old with a right inter trochanteric femur fracture . The risks and benefits of operative treatment, including but not limited to risk of damage to blood vessels, nerves, tendons, infection, recurrence, persistent pain or numbness, incomplete resolution of preoperative symptoms, nonunion, malunion, risks of anesthesia or need for further surgery were discussed with the patient and they wished to proceed with surgery. Procedure: Once consent was obtained patient was brought back to the operating suite and placed in the operating fracture table in a supine position. . The well leg was positioned in some hip flexion external rotation and abduction. A gentle fracture reduction was performed applying traction and gentle internal rotation through the fracture table. Perioperative antibiotics and anesthesia was administered by the anesthesia team. The C-arm was properly positioned and used throughout the case to assess our reduction and placement of all implants. The right hip and lower extremity was prepped and draped in a standard surgical fashion. Once assured we obtained a satisfactory reduction of our IT hip fracture, a 3 cm longitudinal incision was made proximal to the greater trochanter. A guidewire was passed through the tip of the greater trochanter and into the proximal femur. Its position was assessed on orthogonal fluoroscopic images. Once satisfied, proximal aspect of the canal was prepared using the 15.5 mm conical Reamer through a soft tissue protector. The ball-tipped guidewire was then advanced through the femoral canal down to the distal femur. C-arm images were again obtained to assure proper position. We then reamed sequentially up to a 12.5 mm Reamer, opening up the proximal aspect of the femoral canal in preparation for placement of the femoral nail. An 11 mm x 180 mm, 125 degree short Gamma 3 femoral intramedullary nail was then advanced into the femoral canal. It was advanced such that the lag screw would be properly positioned within the femoral head. At this point the ball-tipped guidewire was removed. The drill guide for the lag screw was then advanced to the skin to help identify proper location of the skin incision. A 2 cm longitudinal incision was then made using a 15. Blade. A Schnitt was then used to dissected down to the femoral shaft. The drill guide was then advanced on to the femoral shaft. The guidewire for the gamma 3 lag screw was then advanced into the neck of the femur. Orthogonal C-arm images were then obtained as the guidewire position was adjusted to obtain a center center position in the femoral head. Once satisfied, the appropriate lag screw length was selected, the guidewire removed and the lag screw advanced into the femoral head. Screwdriver handle was position parallel to the floor to allow for proper seating of the set screw. The set screw was then placed tight and then backed out a quarter turn. The guide handle was adjusted for placement of the distal locking screw. The drill guide was advanced to the skin to allow for proper skin skin incision placement. A 2 cm longitudinal incision was made using a 15. Blade. A Schnitt was used to dissect down to the femoral shaft. The drill was advanced bicortically through the femoral shaft and the screw length measured with a depth gauge. The appropriate length 5.5 mm cortical distal locking screw was then placed. Final AP and lateral fluoroscopic images were then obtained. The wounds were copiously irrigated with normal saline. The subcutaneous layer was closed with 0 Vicryl and 2 0 Vicryl suture, and the skin edges were reapproximated with skin ulises. The wounds were infiltrated with some 1% lidocaine with epinephrine for postop pain control and a sterile dressing was applied. The patient appears to have tolerated the procedure well and with no complications. He was placed on his bed and brought to the recovery room in stable condition.
--- NOTE | 2022-06-01 14:31 | MHC.CM.PN ---
[place] pt was drowsy is going to hip surgery today pt staes he is not homeless he stays with s friend he says he is vac x 1 he belives he has a hcp t/w worker offwered to do another hcp incase that he does not have one and he declined pt will likly need str when dcd
--- NOTE | 2022-06-01 15:01 | HO.PM.IMPN ---
Subjective Subjective Date of Service: 06/02/22 Interval History: the patient was seen and evaluated this morning Laying in bed, feels comfortable after the operation Pain is under fair control Denies any fever, chills or shortness of breath No reported other overnight events. Systemic review: No fever, chills or weakness No chest pain, palpitation No shortness of breath or coughing No abdominal pain, nausea or vomiting No urinary symptoms pain at the surgical site No any rash or wounds Physical Exam Vital Signs: Vital Signs: Last Vital Signs Temp 97.8 F 06/01/22 14:47 Pulse 81 06/01/22 14:52 Resp 15 06/01/22 14:52 BP 162/96 H 06/01/22 14:52 Pulse Ox 100 06/01/22 14:52 O2 Del Method Simple Mask 06/01/22 14:52 O2 Flow Rate 2 06/01/22 14:52 BMI result Body Mass Index 19.9 Const: Other: Constitutional : Alert, oriented, not in distress Neck : Normal inspection, Supple Cardiovascular : RRR, no JVP, no lower extremity edema Respiratory : fair bilateral air entry, no crackles, wheezes or rhonchi Gastrointestinal: soft, lax, Normal bowel sounds, Non tender Skin : Warm, Dry Musculoskeletal: right hip in dressing, no surrounding erythema or drainage Neurological : Alert & oriented x3, No focal deficit , CN 2-12 within normal Objective Data Active Medications Amlodipine Besylate (Amlodipine Besylate 5 Mg Tablet) 5 mg PO DAILY [facility]AB[facility]; Protocol Dextrose (Dextrose 50 % 25 Gm/50 Ml Syringe) 25 gm IVPUSH Q15M PRN; Protocol PRN Reason: per Hypoglycemia Standing Ord. Fentanyl (Fentanyl Citrate/Pf 100 Mcg/2 Ml Vial) 50 mcg IVPUSH Q5M PRN; Protocol PRN Reason: Pain, Severe (Pain Scale 7-10) Folic Acid (Folic Acid 1 Mg Tablet) 1 mg PO DAILY [facility]ABITA Stop: 06/04/22 08:59 Glucose (Glucose Gel 15 Gm Gel..Gram.) 15 gm PO Q15M PRN; Protocol PRN Reason: per Hypoglycemia Standing Ord. Heparin Sodium (Porcine) (Heparin Sodium,Porcine 5,000 Unit/Ml Vial) 5,000 unit SUBCUT Q8H [facility]AB[facility] Last Admin: 06/01/22 08:33 Dose: Not Given Documented By: VANCE Non-Admin Reason: pt to go to surgery Hydromorphone HCl (Hydromorphone Hcl 0.5 Mg/0.5 Ml Syringe) 0.5 mg IVPUSH Q4H PRN; Protocol PRN Reason: Pain, Severe (Pain Scale 7-10) Sodium Chloride (Ns) 1,000 mls @ 100 mls/hr IVCONT .Q10H [facility] Last Admin: 06/01/22 00:35 Dose: 100 mls/hr Documented By: SHWETA Insulin Human Lispro (Insulin Lispro 100 Unit/Ml 3 Ml Vial) 0.1 - 10 unit SUBCUT QIDACHS [facility]; Protocol Last Admin: 06/01/22 08:32 Dose: Not Given Documented By: VANCE Non-Admin Reason: No Insulin Coverage Melatonin (Melatonin 3 Mg Tablet) 6 mg PO BEDTIME PRN PRN Reason: Insomnia Metoprolol Tartrate (Metoprolol Tartrate 50 Mg Tablet) 50 mg PO BID [facility]; Protocol Multivitamins/Vitamin C (Multivitamin Tablet) 1 tab PO DAILY [facility] Stop: 06/04/22 08:59 Omeprazole (Omeprazole 40 Mg Capsule.Dr) 40 mg PO BID@0630,1630 [facility] Last Admin: 06/01/22 08:32 Dose: Not Given Documented By: VANCE Non-Admin Reason: NPO Ondansetron HCl (Ondansetron Hcl 4 Mg/2 Ml Vial) 4 mg IVPUSH ONCE PRN PRN Reason: Nausea and Vomiting Oxycodone HCl (Oxycodone Hcl Immed Release 5 Mg Tablet) 10 mg PO ONCE PRN PRN Reason: Pain, Severe (Pain Scale 7-10) Pharmacy Consult (Consult Rx Perform Med Rec) 1 each MISCELLANE ONCE PRN PRN Reason: Consult order Pharmacy Consult (Consult Rx Etoh Phenob Po Only) 1 each MISCELLANE ONCE PRN; Protocol PRN Reason: Consult order Pharmacy Consult (Consult Rx Perform Med Rec) 1 each MISCELLANE ONCE PRN PRN Reason: Consult order Phenobarbital (Phenobarbital 15 Mg Tablet) 45 mg PO BID [facility] Stop: 06/03/22 09:01 Phenobarbital (Phenobarbital 30 Mg Tablet) 30 mg PO BID [facility] Stop: 06/05/22 09:01 Phenobarbital (Phenobarbital 30 Mg Tablet) 30 mg PO DAILY [facility] Stop: 06/07/22 09:01 Senna (Sennosides 8.6 Mg Tablet) 17.2 mg PO BEDTIME PRN PRN Reason: Constipation Sodium Chloride (0.9 % Sodium Chloride Flush 3 Ml Syringe) 3 ml IVFLUSH QSHIFT [facility] Last Admin: 06/01/22 08:32 Dose: Not Given Documented By: VANCE Non-Admin Reason: IV Running Thiamine HCl (Thiamine Hcl 100 Mg Tablet) 100 mg PO DAILY [facility] Stop: 06/04/22 08:59 Labs CBC & Chem 7: 06/02/22 05:28 06/02/22 05:28 Labs: Laboratory Results - last 24 hr 05/31/22 05/31/22 05/31/22 23:02 23:04 23:04 MCV 89.6 MCH 28.0 MCHC 31.3 RDW 18.4 H Plt Count 171 D MPV 9.2 L Immature Gran % (Auto) 0.3 Neut % (Auto) 77.6 H Lymph % (Auto) 10.1 L [place] % (Auto) 11.2 H Eos % (Auto) 0.3 Baso % (Auto) 0.5 Lymph # (Auto) 0.9 L [place] # (Auto) 1.0 Eos # (Auto) 0.0 Baso # (Auto) 0.0 Abs Immat Gran (auto) 0.03 Absolute Neuts (auto) 6.8 Absolute Nucleated RBC 0.000 Nucleated RBC % (auto) 0.0 PT 10.5 INR 0.9 Anion Gap Estim Creat Clear Calc Estimated GFR POC Glucose Random Glucose Estimat Average Glucose Hemoglobin A1c % Calcium Magnesium Total Bilirubin Direct Bilirubin AST ALT Alkaline Phosphatase Total Protein Albumin Urine Color Urine Appearance Urine pH Ur Specific [place] Urine Protein Urine Glucose (UA) Urine Ketones Urine Blood Urine Nitrite Ur Leukocyte Esterase Urine Opiates Screen Urine Fentanyl Screen Ur Barbiturates Screen Ur Phencyclidine Scrn Ur Amphetamines Screen U Benzodiazepines Scrn Urine Cocaine Screen U Marijuana (THC) Screen Ethyl Alcohol COVID-19 ([facility]LE[facility]) Negative COVID-19 Clin Com See Note Blood Type Antibody Screen 05/31/22 05/31/22 05/31/22 23:04 23:23 23:23 MCV MCH MCHC RDW Plt Count MPV Immature Gran % (Auto) Neut % (Auto) Lymph % (Auto) [place] % (Auto) Eos % (Auto) Baso % (Auto) Lymph # (Auto) [place] # (Auto) Eos # (Auto) Baso # (Auto) Abs Immat Gran (auto) Absolute Neuts (auto) Absolute Nucleated RBC Nucleated RBC % (auto) PT INR Anion Gap 13 Estim Creat Clear Calc 88.4 Estimated GFR > 60 POC Glucose Random Glucose 118 H D Estimat Average Glucose Hemoglobin A1c % Calcium 8.4 Magnesium 1.8 Total Bilirubin 0.7 Direct Bilirubin 0.3 AST 21 D ALT 27 Alkaline Phosphatase 56 D Total Protein 7.0 Albumin 4.2 Urine Color YELLOW Urine Appearance CLEAR Urine pH 6.0 Ur Specific [place] 1.025 Urine Protein NEG Urine Glucose (UA) NEG Urine Ketones 15 Urine Blood NEG Urine Nitrite NEG Ur Leukocyte Esterase NEG Urine Opiates Screen Not Detected Urine Fentanyl Screen Not Detected Ur Barbiturates Screen Not Detected Ur Phencyclidine Scrn Not Detected Ur Amphetamines Screen Not Detected U Benzodiazepines Scrn Not Detected Urine Cocaine Screen Not Detected U Marijuana (THC) Screen Not Detected Ethyl Alcohol < 10 COVID-19 ([facility]) COVID-19 Clin Com Blood Type Antibody Screen 06/01/22 06/01/22 06/01/22 07:28 07:28 07:28 MCV 90.6 MCH 27.7 MCHC 30.6 L RDW 18.2 H Plt Count 170 MPV 9.0 L Immature Gran % (Auto) 0.4 Neut % (Auto) 66.6 Lymph % (Auto) 17.1 L [place] % (Auto) 14.4 H Eos % (Auto) 1.0 Baso % (Auto) 0.5 Lymph # (Auto) 1.3 [place] # (Auto) 1.1 Eos # (Auto) 0.1 Baso # (Auto) 0.0 Abs Immat Gran (auto) 0.03 Absolute Neuts (auto) 5.2 Absolute Nucleated RBC 0.000 Nucleated RBC % (auto) 0.0 PT INR Anion Gap 13 Estim Creat Clear Calc 88.4 Estimated GFR > 60 POC Glucose Random Glucose 103 Estimat Average Glucose 91 Hemoglobin A1c % 4.8 Calcium 8.2 L Magnesium Total Bilirubin Direct Bilirubin AST ALT Alkaline Phosphatase Total Protein Albumin Urine Color Urine Appearance Urine pH Ur Specific [place] Urine Protein Urine Glucose (UA) Urine Ketones Urine Blood Urine Nitrite Ur Leukocyte Esterase Urine Opiates Screen Urine Fentanyl Screen Ur Barbiturates Screen Ur Phencyclidine Scrn Ur Amphetamines Screen U Benzodiazepines Scrn Urine Cocaine Screen U Marijuana (THC) Screen Ethyl Alcohol COVID-19 ([facility]) COVID-19 Clin Com Blood Type Antibody Screen 06/01/22 06/01/22 06/01/22 08:31 08:31 09:09 MCV MCH MCHC RDW Plt Count MPV Immature Gran % (Auto) Neut % (Auto) Lymph % (Auto) [place] % (Auto) Eos % (Auto) Baso % (Auto) Lymph # (Auto) [place] # (Auto) Eos # (Auto) Baso # (Auto) Abs Immat Gran (auto) Absolute Neuts (auto) Absolute Nucleated RBC Nucleated RBC % (auto) PT INR Anion Gap Estim Creat Clear Calc Estimated GFR POC Glucose 91 87 Random Glucose Estimat Average Glucose Hemoglobin A1c % Calcium Magnesium Total Bilirubin Direct Bilirubin AST ALT Alkaline Phosphatase Total Protein Albumin Urine Color Urine Appearance Urine pH Ur Specific [place] Urine Protein Urine Glucose (UA) Urine Ketones Urine Blood Urine Nitrite Ur Leukocyte Esterase Urine Opiates Screen Urine Fentanyl Screen Ur Barbiturates Screen Ur Phencyclidine Scrn Ur Amphetamines Screen U Benzodiazepines Scrn Urine Cocaine Screen U Marijuana (THC) Screen Ethyl Alcohol COVID-19 ([facility]) COVID-19 Clin Com Blood Type A Negative Antibody Screen NEGATIVE Assessment and Plan (1) Intertrochanteric fracture of femur: Status: Acute Plan ?61-year-old male with a past medical history of hypertension, diabetes, alcohol abuse, anemia, history of GI bleed presented to the hospital today with a chief complaint of fall.? sustained a right femoral intertrochanteric fracture.? Admitted for further management Mechanical Fall: Right Femur? inter trochanteric Fracture: pod 0 Post surgery Orthopedics team following pain control to start physical therapy Alcohol Abuse/Withdrawal CIWA monitoring Phenobarbital Protocol Thiamine, folate, Multi vitamins. History of Hypertension amlodipine History of Diabetes ISS. Monitor POC glucose. DVT prophylaxis Subcu heparin the patient will need overnight hospital stay to finish physical therapy pending safe discharge plan. Quality Stroke Does the patient have a stroke diagnosis?: No VTE Prior VTE?: No VTE Risk Level:: Medical - moderate - high VTE Device Contraindication: Treatment Not Indicated VTE Drug Contraindication: N/A - Med Ordered
[2022-06-01 15:13] LABS: Glucose, Whole Blood 115 mg/dL (60-115)
[2022-06-01] MEDS: oxyCODONE HCl Immed Release 5 MG TABLET 10 MG PO (15:43)
[2022-06-01 16:25] LABS: Glucose, Whole Blood 150 mg/dL (60-115)
[2022-06-01 20:13] LABS: Glucose, Whole Blood 117 mg/dL (60-115)
[2022-06-01] MEDS: PHENobarbitaL 15 MG TABLET 45 MG PO (20:48)
[2022-06-01] MEDS: Melatonin 3 MG TABLET 6 MG PO (20:49)
[2022-06-01] MEDS: Metoprolol Tartrate 50 MG TABLET PO (20:49)
[2022-06-01] MEDS: HYDROmorphone HCl 0.5 MG/0.5 ML SYRINGE IVPUSH (20:49)
[2022-06-02] VITALS (9 sets, daily range): BP systolic 130–152; BP diastolic 69–84; PULSE 78–90; RESP 17–20; TEMP 36.2–37; O2SAT 97–100; BMI 19.9
[2022-06-02] MEDS: 0.9 % Sodium Chloride 1,000 ML 100 ML IVCONT ×2 (00:30→10:34)
[2022-06-02] MEDS: HYDROmorphone HCl 0.5 MG/0.5 ML SYRINGE IVPUSH ×2 (02:46→17:27)
[2022-06-02] MEDS: Omeprazole 40 MG CAPSULE.DR PO ×2 (05:31→16:18)
[2022-06-02 06:40] LABS: Hematocrit 25.7 % (42.0-52.0); Hemoglobin 7.8 g/dl (14.0-18.0); Mean Corpuscular HGB Conc 30.4 g/dl (31.0-36.0); Mean Corpuscular Hemoglobin 27.6 pg (27.0-33.0); Mean Corpuscular Volume 90.8 fL (80.0-98.0); Mean Platelet Volume 10.5 fL (9.4-12.4); Platelet Count 178 X10*3/uL (160-400); Red Blood Count 2.83 X10*6/uL (4.60-5.80); Red Cell Distribution Width 18.2 % (11.0-16.0); White Blood Count 7.6 X10*3/uL (4.8-10.8)
[2022-06-02 07:04] LABS: Anion Gap 12 (12-20); Blood Urea Nitrogen 4 mg/dL (9-16); Calcium 7.9 mg/dL (8.4-10.2); Carbon Dioxide 22 mmol/L (22-29); Chloride 102 mmol/L (96-108); Estimated Glomerular Filt Rate > 60; Glucose Random 151 mg/dL (60-115); Potassium 3.7 mmol/L (3.3-5.1); Sodium 132 mmol/L (135-145)
[2022-06-02 07:27] LABS: Glucose, Whole Blood 101 mg/dL (60-115)
--- NOTE | 2022-06-02 07:55 | PM.PNORT ---
Subjective Subjective Date of Service: 06/02/22 Interval history: POD1 s/p Rt hip IM Nail with Dr. Goldsmith. No overnight events. Patient is resting in bed. Making adjustments to pain medication for better pain management. No additional complaints. Physical Exam Vital Signs: Vital Signs: Last Vital Signs Temp 97.1 F 06/02/22 07:25 Pulse 80 06/02/22 07:25 Resp 20 06/02/22 07:25 BP 152/81 H 06/02/22 07:25 Pulse Ox 100 06/02/22 07:25 O2 Del Method 06/02/22 07:25 O2 Flow Rate 0 06/01/22 15:47 BMI result Body Mass Index 19.9 Const: General: cooperative, healthy appearing and no acute distress Resp: Effort & Inspection: normal respiratory effort and able to speak in complete sentences Cardio: Rate: regular rate Peripheral pulses: Peripheral pulses 2+ throughout GI: Palpation (GI): Soft to palpation Skin: Lesions: no lesions Rashes: no rashes Extrem: Other: Right hip bandages are clean, dry, and intact. Patient is able to dorsiflex and plantarflex. NVI. Procedures Date of Service Date of Service: 06/02/22 Progress Note: A&P Assessment and plan (1) Intertrochanteric fracture of femur: Status: Acute Plan Continue pain mgmnt Begin Lovenox for dvt ppx begin PT/OT for rt hip IM Nail WBAT Dispo planning-Pending PT eval, pain mgmnt Time Spent With Patient Time: Total time spent is greater than 50% in coordination of care (as documented) at patient's floor/unit and/or counseling patient: Quality Stroke Does the patient have a stroke diagnosis?: No VTE Prior VTE?: No VTE Risk Level:: Medical - moderate - high VTE Device Contraindication: Treatment Not Indicated VTE Drug Contraindication: N/A - Med Ordered
[2022-06-02] MEDS: oxyCODONE HCl ER 10 MG TAB.ER.12H PO ×2 (07:56→19:56)
[2022-06-02] MEDS: Multivitamin TABLET 1 TAB PO (07:57)
[2022-06-02] MEDS: Folic Acid 1 MG TABLET PO (07:57)
[2022-06-02] MEDS: amLODIPine Besylate 5 MG TABLET PO (07:57)
[2022-06-02] MEDS: Metoprolol Tartrate 50 MG TABLET PO ×2 (07:58→19:56)
[2022-06-02] MEDS: PHENobarbitaL 15 MG TABLET 45 MG PO ×2 (07:58→19:56)
[2022-06-02] MEDS: Thiamine HCL 100 MG TABLET PO (07:59)
--- NOTE | 2022-06-02 08:33 | MHC.CM.CNN ---
PT is recommending STR; CM will need to find a STR bed in a SNF contracted with [facility]. CM will continue to follow.
[2022-06-02 09:09] LABS: Iron 19 mcg/dL (45-160); Percent Iron Saturation 6 % (15-50); Total Iron Binding Capacity 317 mcg/dL (228-428); Unsaturated Iron Binding 298 ug/dL
[2022-06-02] MEDS: Nicotine 21 MG PATCH.TD24 TRANSDERMA (10:34)
[2022-06-02] MEDS: oxyCODONE HCl Immed Release 5 MG TABLET PO ×2 (10:35→16:18)
[2022-06-02 11:22] LABS: Glucose, Whole Blood 139 mg/dL (60-115)
--- NOTE | 2022-06-02 12:13 | P.PNIM_ITS ---
Subjective Subjective Date of Service: 06/02/22 Interval History: the patient was seen and evaluated this morning Laying in bed, feels comfortable complaining of pain at the site of surgery No reported other overnight events. Systemic review: No fever, chills or weakness No chest pain, palpitation No shortness of breath or coughing No abdominal pain, nausea or vomiting No urinary symptoms pain at the surgical site No any rash or wounds Physical Exam Vital Signs: Vital Signs: Last Vital Signs Temp 97.1 F 06/02/22 07:25 Pulse 80 06/02/22 08:27 Resp 20 06/02/22 07:25 BP 152/81 H 06/02/22 08:27 Pulse Ox 100 06/02/22 08:27 O2 Del Method 06/02/22 07:25 O2 Flow Rate 0 06/01/22 15:47 BMI result Body Mass Index 19.9 Const: Other: Constitutional : Alert, oriented, not in distress Neck : Normal inspection, Supple Cardiovascular : RRR, no JVP, no lower extremity edema Respiratory : fair bilateral air entry, no crackles, wheezes or rhonchi Gastrointestinal: soft, lax, Normal bowel sounds, Non tender Skin : Warm, Dry Musculoskeletal: right hip in dressing, no surrounding erythema or drainage Neurological : Alert & oriented x3, No focal deficit , CN 2-12 within normal Objective Data Active Medications Acetaminophen (Acetaminophen 325 Mg Tablet) 650 mg PO Q6H PRN PRN Reason: Pain, Mild (Pain Scale 1-3) Amlodipine Besylate (Amlodipine Besylate 5 Mg Tablet) 5 mg PO DAILY [facility]; Protocol Last Admin: 06/02/22 07:57 Dose: 5 mg Documented By: NATI Dextrose (Dextrose 50 % 25 Gm/50 Ml Syringe) 25 gm IVPUSH Q15M PRN; Protocol PRN Reason: per Hypoglycemia Standing Ord. Enoxaparin Sodium (Enoxaparin Sodium 40 Mg/0.4 Ml Syringe) 40 mg SUBCUT Q24H [facility] Fentanyl (Fentanyl Citrate/Pf 100 Mcg/2 Ml Vial) 50 mcg IVPUSH Q5M PRN; Protocol PRN Reason: Pain, Severe (Pain Scale 7-10) Folic Acid (Folic Acid 1 Mg Tablet) 1 mg PO DAILY [facility] Stop: 06/04/22 08:59 Last Admin: 06/02/22 07:57 Dose: 1 mg Documented By: NATI Glucose (Glucose Gel 15 Gm Gel..Gram.) 15 gm PO Q15M PRN; Protocol PRN Reason: per Hypoglycemia Standing Ord. Hydromorphone HCl (Hydromorphone Hcl 0.5 Mg/0.5 Ml Syringe) 0.5 mg IVPUSH Q4H PRN; Protocol PRN Reason: Pain, Severe (Pain Scale 7-10) Last Admin: 06/02/22 02:46 Dose: 0.5 mg Documented By: GISSEL Hydromorphone HCl (Hydromorphone Hcl 0.5 Mg/0.5 Ml Syringe) 0.25 mg IV Q4H PRN; Protocol PRN Reason: Pain, Severe (Pain Scale 7-10) Cefazolin Sodium/Dextrose (Ancef) 2 gm in 50 mls @ 100 mls/hr IV POSTOP [facility] Insulin Human Lispro (Insulin Lispro 100 Unit/Ml 3 Ml Vial) 0.1 - 10 unit SUBCUT QIDACHS [facility]; Protocol Last Admin: 06/02/22 11:39 Dose: Not Given Documented By: NATI Non-Admin Reason: No Insulin Coverage Melatonin (Melatonin 3 Mg Tablet) 6 mg PO BEDTIME PRN PRN Reason: Insomnia Last Admin: 06/01/22 20:49 Dose: 6 mg Documented By: GISSEL Metoprolol Tartrate (Metoprolol Tartrate 50 Mg Tablet) 50 mg PO BID [facility]; Protocol Last Admin: 06/02/22 07:58 Dose: 50 mg Documented By: NATI Multivitamins/Vitamin C (Multivitamin Tablet) 1 tab PO DAILY [facility] Stop: 06/04/22 08:59 Last Admin: 06/02/22 07:57 Dose: 1 tab Documented By: NATI Nicotine (Nicotine 21 Mg Patch.Td24) 21 mg TRANSDERMA DAILY [facility] Last Admin: 06/02/22 10:34 Dose: 21 mg Documented By: NATI Omeprazole (Omeprazole 40 Mg Capsule.Dr) 40 mg PO BID@0630,1630 [facility] Last Admin: 06/02/22 05:31 Dose: 40 mg Documented By: GISSEL Ondansetron HCl (Ondansetron Hcl 4 Mg/2 Ml Vial) 4 mg IVPUSH ONCE PRN PRN Reason: Nausea and Vomiting Ondansetron HCl (Ondansetron Hcl 4 Mg/2 Ml Vial) 4 mg IVPUSH Q8H PRN PRN Reason: Nausea and Vomiting Oxycodone HCl (Oxycodone Hcl Immed Release 5 Mg Tablet) 5 mg PO Q4H PRN PRN Reason: Pain, Moderate (Pain Scale 4-6 Last Admin: 06/02/22 10:35 Dose: 5 mg Documented By: NATI Oxycodone HCl (Oxycodone Hcl Er 10 Mg Tab.Er.12h) 10 mg PO BID [facility] Last Admin: 06/02/22 07:56 Dose: 10 mg Documented By: NATI Pharmacy Consult (Consult Rx Perform Med Rec) 1 each MISCELLANE ONCE PRN PRN Reason: Consult order Pharmacy Consult (Consult Rx Etoh Phenob Po Only) 1 each MISCELLANE ONCE PRN; Protocol PRN Reason: Consult order Pharmacy Consult (Consult Rx Perform Med Rec) 1 each MISCELLANE ONCE PRN PRN Reason: Consult order Phenobarbital (Phenobarbital 15 Mg Tablet) 45 mg PO BID [facility] Stop: 06/03/22 09:01 Last Admin: 06/02/22 07:58 Dose: 45 mg Documented By: NATI Phenobarbital (Phenobarbital 30 Mg Tablet) 30 mg PO BID [facility] Stop: 06/05/22 09:01 Phenobarbital (Phenobarbital 30 Mg Tablet) 30 mg PO DAILY [facility] Stop: 06/07/22 09:01 Senna (Sennosides 8.6 Mg Tablet) 17.2 mg PO BEDTIME PRN PRN Reason: Constipation Sodium Chloride (0.9 % Sodium Chloride Flush 3 Ml Syringe) 3 ml IVFLUSH [facility] Last Admin: 06/02/22 07:59 Dose: Not Given Documented By: NATI Non-Admin Reason: IV Running Sodium Chloride (0.9 % Sodium Chloride Flush 3 Ml Syringe) 3 ml IVFLUSH QSOHFT [facility] Last Admin: 06/02/22 07:59 Dose: Not Given Documented By: NATI Non-Admin Reason: IV Running Thiamine HCl (Thiamine Hcl 100 Mg Tablet) 100 mg PO DAILY [facility] Stop: 06/04/22 08:59 Last Admin: 06/02/22 07:59 Dose: 100 mg Documented By: NATI Labs CBC & Chem 7: 06/02/22 05:28 06/02/22 05:28 Labs: Laboratory Results - last 24 hr 06/01/22 06/01/22 06/01/22 15:09 16:22 20:04 MCV MCH MCHC RDW Plt Count MPV Absolute Nucleated RBC Nucleated RBC % (auto) Anion Gap Estim Creat Clear Calc Estimated GFR POC Glucose 115 150 H 117 H Random Glucose Calcium Iron TIBC % Saturation Unsat Iron Binding 06/02/22 06/02/22 06/02/22 05:28 05:28 07:23 MCV 90.8 MCH 27.6 MCHC 30.4 L RDW 18.2 H Plt Count 178 MPV 10.5 Absolute Nucleated RBC 0.000 Nucleated RBC % (auto) 0.0 Anion Gap 12 Estim Creat Clear Calc 97.0 Estimated GFR > 60 POC Glucose 101 Random Glucose 151 H D Calcium 7.9 L Iron 19 L TIBC 317 % Saturation 6 L Unsat Iron Binding 298 06/02/22 11:18 MCV MCH MCHC RDW Plt Count MPV Absolute Nucleated RBC Nucleated RBC % (auto) Anion Gap Estim Creat Clear Calc Estimated GFR POC Glucose 139 H Random Glucose Calcium Iron TIBC % Saturation Unsat Iron Binding Assessment and Plan (1) Intertrochanteric fracture of femur: Status: Acute Plan ?61-year-old male with a past medical history of hypertension, diabetes, alcohol abuse, anemia, history of GI bleed presented to the hospital today with a chief complaint of fall.? sustained a right femoral intertrochanteric fracture.? Admitted for further management Mechanical Fall Right Femur? inter trochanteric Fracture: pod 1 Post surgery Orthopedics team following pain control continue physical therapy discontinue IV fluid Alcohol Abuse/Withdrawal CIWA monitoring Phenobarbital Protocol Thiamine, folate, Multi vitamins. History of Hypertension amlodipine History of Diabetes ISS. Monitor POC glucose. DVT prophylaxis Subcu heparin the patient will need overnight hospital stay to finish physical therapy pending safe discharge plan. Quality Stroke Does the patient have a stroke diagnosis?: No VTE Prior VTE?: No VTE Risk Level:: Medical - moderate - high VTE Device Contraindication: Treatment Not Indicated VTE Drug Contraindication: N/A - Med Ordered
[2022-06-02] MEDS: Enoxaparin Sodium 40 MG/0.4 ML SYRINGE SUBCUT (13:38)
--- NOTE | 2022-06-02 13:58 | HO.POSTANES ---
Post Anesthesia Evaluation Post Anesthesia Evaluation Vital Signs: Vital Signs Temp Pulse Resp BP Pulse Ox O2 Del Method 06/02/22 13:13 100 06/02/22 12:25 100 Room Air 06/02/22 08:27 80 152/81 H 100 06/02/22 07:25 97.1 F 80 20 152/81 H 100 Room Air 06/02/22 04:00 97.8 F 82 17 145/84 H 100 Room Air Anesthesia: General Mental Status: Awake Pain Control: Satisfactory Nausea/Vomiting: None Hydration: Adequate Anesthesia-Related Issues: No Anes. Related Issues
[2022-06-02 15:54] LABS: Glucose, Whole Blood 116 mg/dL (60-115)
[2022-06-02] MEDS: 0.9 % Sodium Chloride Flush 3 ML SYRINGE IVFLUSH ×2 (16:33→19:56)
[2022-06-02 19:48] LABS: Glucose, Whole Blood 133 mg/dL (60-115)
[2022-06-02] MEDS: diphenhydrAMINE HCL 25 MG TABLET PO (20:09)
[2022-06-02] MEDS: Melatonin 3 MG TABLET 6 MG PO (20:09)
[2022-06-03] VITALS (8 sets, daily range): BP systolic 113–172; BP diastolic 66–86; PULSE 70–87; RESP 16–19; TEMP 36.6–37.2; O2SAT 98–100
[2022-06-03] MEDS: Omeprazole 40 MG CAPSULE.DR PO ×2 (04:39→16:07)
[2022-06-03] MEDS: oxyCODONE HCl Immed Release 5 MG TABLET PO ×4 (04:39→20:35)
[2022-06-03] MEDS: HYDROmorphone HCl 0.5 MG/0.5 ML SYRINGE 0.25 MG IV (05:27)
[2022-06-03 06:46] LABS: MANUAL DIFF FLAG NO
[2022-06-03 06:53] LABS: Basophils Percent Auto 0.3 % (0-2); Eosinophils Absolute Auto 0.1 X10*3/uL (0.0-0.4); Eosinophils Percent Auto 0.9 % (0-4); Hematocrit 21.3 % (42.0-52.0); Imm Gran Abs Auto 0.02 X10*3/uL (0.00-0.03); Imm Gran Pct Auto 0.3 % (0.0-0.4); Lymphocytes Absolute Auto 0.8 X10*3/uL (1.2-4.9); Lymphocytes Percent Auto 12.3 % (20-40); Mean Corpuscular Hemoglobin 27.8 pg (27.0-33.0); Mean Corpuscular Volume 89.9 fL (80.0-98.0); Mean Platelet Volume 10.2 fL (9.4-12.4); Monocytes Absolute Auto 1.1 X10*3/uL (0.1-1.2); Monocytes Percent Auto 16.5 % (2-11); Neutrophils Absolute Auto 4.4 x10*3/uL (2.0-8.3); Neutrophils Percent Auto 69.7 % (45-73); Platelet Count 208 X10*3/uL (160-400); Red Blood Count 2.37 X10*6/uL (4.60-5.80); Red Cell Distribution Width 18.4 % (11.0-16.0); White Blood Count 6.4 X10*3/uL (4.8-10.8)
[2022-06-03 07:16] LABS: Anion Gap 11 (12-20); Blood Urea Nitrogen 6 mg/dL (9-16); Calcium 7.9 mg/dL (8.4-10.2); Carbon Dioxide 24 mmol/L (22-29); Chloride 102 mmol/L (96-108); Estimated Glomerular Filt Rate > 60; Glucose Fasting 133 mg/dL (60-99); Potassium 3.7 mmol/L (3.3-5.1); Sodium 133 mmol/L (135-145)
[2022-06-03 07:28] LABS: Glucose, Whole Blood 103 mg/dL (60-115)
[2022-06-03 07:28] LABS: Hemoglobin 6.6 g/dl (14.0-18.0)
[2022-06-03] MEDS: amLODIPine Besylate 5 MG TABLET PO (08:00)
[2022-06-03] MEDS: Multivitamin TABLET 1 TAB PO (08:00)
[2022-06-03] MEDS: Folic Acid 1 MG TABLET PO (08:00)
[2022-06-03] MEDS: PHENobarbitaL 15 MG TABLET 45 MG PO (08:00)
[2022-06-03] MEDS: oxyCODONE HCl ER 10 MG TAB.ER.12H PO ×2 (08:00→20:32)
[2022-06-03] MEDS: Metoprolol Tartrate 50 MG TABLET PO ×2 (08:00→20:33)
[2022-06-03] MEDS: Thiamine HCL 100 MG TABLET PO (08:01)
[2022-06-03] MEDS: Nicotine 21 MG PATCH.TD24 TRANSDERMA (08:01)
[2022-06-03] MEDS: 0.9 % Sodium Chloride Flush 3 ML SYRINGE IVFLUSH ×5 (08:05→20:35)
--- NOTE | 2022-06-03 11:26 | MHC.CM.PN ---
CM met at bedside with Patient to discuss PT's recommendation for STR. Patient's first choice facility is [facility], who plans to make an on-site visit to meet Patient shortly and if accepted, JUAN FRANCISCO has asked [facility] to initiate HNE auth today for anticipated dc tomorrow. CM will follow.
--- NOTE | 2022-06-03 11:30 | P.PNIM_ITS ---
Subjective Subjective Date of Service: 06/03/22 Interval History: seen and examined this morning Follow-up for Right hip fracture status post IM nailing 06/01 having pain at surgical site Review of Systems Review of Systems: Yes all other systems are reviewed and are negative Constitutional Constitutional: Denies chills and Denies fever(s) Cardiovascular Cardiovascular: Denies chest pain, Denies palpitations and Denies dyspnea Respiratory Respiratory: Denies cough and Denies dyspnea Gastrointestinal Gastrointestinal: Denies abdominal pain and Denies vomiting Endocrine Endocrine: Denies palpitations Physical Exam Vital Signs: Vital Signs: Last Vital Signs Temp 98.5 F 06/03/22 09:20 Pulse 76 06/03/22 09:20 Resp 18 06/03/22 09:20 BP 140/68 H 06/03/22 09:20 Pulse Ox 99 06/03/22 07:19 O2 Del Method 06/03/22 07:19 O2 Flow Rate 0 06/01/22 15:47 BMI result Body Mass Index 19.9 Const: General: cooperative, no acute distress, alert and awake Nutritional Appearance: thin Orientation/consciousness: patient oriented x3 Resp: Effort & Inspection: normal respiratory effort and able to speak in complete sentences Cardio: Rate: regular rate Heart sounds: S1 normal heart sound present and S2 normal heart sound present GI: Palpation (GI): Soft to palpation and nontender Skin: Other: right hip c/d/i Neuro: General: patient oriented x3 Extrem: General: Yes no pedal edema Objective Data Active Medications Acetaminophen (Acetaminophen 325 Mg Tablet) 650 mg PO Q6H PRN PRN Reason: Pain, Mild (Pain Scale 1-3) Amlodipine Besylate (Amlodipine Besylate 5 Mg Tablet) 5 mg PO DAILY [facility]; Pro tocol Last Admin: 06/03/22 08:00 Dose: 5 mg Documented By: DABMarkie Dextrose (Dextrose 50 % 25 Gm/50 Ml Syringe) 25 gm IVPUSH Q15M PRN; Protocol PRN Reason: per Hypoglycemia Standing Ord. Enoxaparin Sodium (Enoxaparin Sodium 40 Mg/0.4 Ml Syringe) 40 mg SUBCUT Q24H [facility] Last Admin: 06/02/22 13:38 Dose: 40 mg Documented By: DABMarkie Fentanyl (Fentanyl Citrate/Pf 100 Mcg/2 Ml Vial) 50 mcg IVPUSH Q5M PRN; Protocol PRN Reason: Pain, Severe (Pain Scale 7-10) Folic Acid (Folic Acid 1 Mg Tablet) 1 mg PO DAILY [facility] Stop: 06/04/22 08:59 Last Admin: 06/03/22 08:00 Dose: 1 mg Documented By: NATI Glucose (Glucose Gel 15 Gm Gel..Gram.) 15 gm PO Q15M PRN; Protocol PRN Reason: per Hypoglycemia Standing Ord. Hydromorphone HCl (Hydromorphone Hcl 0.5 Mg/0.5 Ml Syringe) 0.5 mg IVPUSH Q4H PRN; Protocol PRN Reason: Pain, Severe (Pain Scale 7-10) Last Admin: 06/02/22 17:27 Dose: 0.5 mg Documented By: NATI Hydromorphone HCl (Hydromorphone Hcl 0.5 Mg/0.5 Ml Syringe) 0.25 mg IV Q4H PRN; Protocol PRN Reason: Pain, Severe (Pain Scale 7-10) Last Admin: 06/03/22 05:27 Dose: 0.25 mg Documented By: GISSEL Cefazolin Sodium/Dextrose (Ancef) 2 gm in 50 mls @ 100 mls/hr IV POSTOP [facility] Insulin Human Lispro (Insulin Lispro 100 Unit/Ml 3 Ml Vial) 0.1 - 10 unit SUBCUT QIDACHS [facility]; Protocol Last Admin: 06/03/22 07:24 Dose: Not Given Documented By: NATI Non-Admin Reason: No Insulin Coverage Melatonin (Melatonin 3 Mg Tablet) 6 mg PO BEDTIME PRN PRN Reason: Insomnia Last Admin: 06/02/22 20:09 Dose: 6 mg Documented By: GISSEL Metoprolol Tartrate (Metoprolol Tartrate 50 Mg Tablet) 50 mg PO BID [facility]; Protocol Last Admin: 06/03/22 08:00 Dose: 50 mg Documented By: NATI Multivitamins/Vitamin C (Multivitamin Tablet) 1 tab PO DAILY [facility] Stop: 06/04/22 08:59 Last Admin: 06/03/22 08:00 Dose: 1 tab Documented By: NATI Nicotine (Nicotine 21 Mg Patch.Td24) 21 mg TRANSDERMA DAILY [facility] Last Admin: 06/03/22 08:01 Dose: 21 mg Documented By: NATI Omeprazole (Omeprazole 40 Mg Capsule.Dr) 40 mg PO BID@0630,7060 [facility] Last Admin: 06/03/22 04:39 Dose: 40 mg Documented By: GISSEL Ondansetron HCl (Ondansetron Hcl 4 Mg/2 Ml Vial) 4 mg IVPUSH ONCE PRN PRN Reason: Nausea and Vomiting Ondansetron HCl (Ondansetron Hcl 4 Mg/2 Ml Vial) 4 mg IVPUSH Q8H PRN PRN Reason: Nausea and Vomiting Oxycodone HCl (Oxycodone Hcl Immed Release 5 Mg Tablet) 5 mg PO Q4H PRN PRN Reason: Pain, Moderate (Pain Scale 4-6 Last Admin: 06/03/22 04:39 Dose: 5 mg Documented By: GISSEL Oxycodone HCl (Oxycodone Hcl Er 10 Mg Tab.Er.12h) 10 mg PO BID [facility] Last Admin: 06/03/22 08:00 Dose: 10 mg Documented By: NATI Pharmacy Consult (Consult Rx Perform Med Rec) 1 each MISCELLANE ONCE PRN PRN Reason: Consult order Pharmacy Consult (Consult Rx Etoh Phenob Po Only) 1 each MISCELLANE ONCE PRN; Protocol PRN Reason: Consult order Pharmacy Consult (Consult Rx Perform Med Rec) 1 each MISCELLANE ONCE PRN PRN Reason: Consult order Phenobarbital (Phenobarbital 30 Mg Tablet) 30 mg PO BID [facility] Stop: 06/05/22 09:01 Phenobarbital (Phenobarbital 30 Mg Tablet) 30 mg PO DAILY [facility] Stop: 06/07/22 09:01 Senna (Sennosides 8.6 Mg Tablet) 17.2 mg PO BEDTIME PRN PRN Reason: Constipation Sodium Chloride (0.9 % Sodium Chloride Flush 3 Ml Syringe) [facility] Last Admin: 06/03/22 08:05 Dose: 3 ml Documented By: NATI Sodium Chloride (0.9 % Sodium Chloride Flush 3 Ml Syringe) 3 ml IVFLUSH [facility] Last Admin: 06/03/22 08:05 Dose: 3 ml Documented By: NATI Thiamine HCl (Thiamine Hcl 100 Mg Tablet) 100 mg PO DAILY [facility] Stop: 06/04/22 08:59 Last Admin: 06/03/22 08:01 Dose: 100 mg Documented By: NATI Labs CBC & Chem 7: 06/03/22 06:07 06/03/22 06:07 Labs: Laboratory Results - last 24 hr 06/01/22 06/02/22 06/02/22 08:31 15:48 19:44 MCV MCH MCHC RDW Plt Count MPV Immature Gran % (Auto) Neut % (Auto) Lymph % (Auto) [place] % (Auto) Eos % (Auto) Baso % (Auto) Lymph # (Auto) [place]oun # (Auto) Eos # (Auto) Baso # (Auto) Abs Immat Gran (auto) Absolute Neuts (auto) Absolute Nucleated RBC Nucleated RBC % (auto) Anion Gap Estim Creat Clear Calc Estimated GFR POC Glucose 116 H 133 H Random Glucose Fasting Glucose Calcium Blood Type A Negative Antibody Screen NEGATIVE Crossmatch See Detail 06/03/22 06/03/22 06/03/22 06:07 06:07 06:07 MCV 89.9 Cancelled MCH 27.8 Cancelled MCHC 31.0 Cancelled RDW 18.4 H Cancelled Plt Count 208 Cancelled MPV 10.2 Cancelled Immature Gran % (Auto) 0.3 Neut % (Auto) 69.7 Lymph % (Auto) 12.3 L [place]oun % (Auto) 16.5 H Eos % (Auto) 0.9 Baso % (Auto) 0.3 Lymph # (Auto) 0.8 L [place] # (Auto) 1.1 Eos # (Auto) 0.1 Baso # (Auto) 0.0 Abs Immat Gran (auto) 0.02 Absolute Neuts (auto) 4.4 Absolute Nucleated RBC 0.000 Cancelled Nucleated RBC % (auto) 0.0 Cancelled Anion Gap 11 L Estim Creat Clear Calc 97.0 Estimated GFR > 60 POC Glucose Random Glucose Fasting Glucose 133 H Calcium 7.9 L Blood Type Antibody Screen Crossmatch 06/03/22 06/03/22 06:07 07:23 MCV MCH MCHC RDW Plt Count MPV Immature Gran % (Auto) Neut % (Auto) Lymph % (Auto) [place] % (Auto) Eos % (Auto) Baso % (Auto) Lymph # (Auto) [place]oun # (Auto) Eos # (Auto) Baso # (Auto) Abs Immat Gran (auto) Absolute Neuts (auto) Absolute Nucleated RBC Nucleated RBC % (auto) Anion Gap Cancelled Estim Creat Clear Calc Cancelled Estimated GFR Cancelled POC Glucose 103 Random Glucose Cancelled Fasting Glucose Calcium Cancelled Blood Type Antibody Screen Crossmatch Assessment and Plan (1) Intertrochanteric fracture of femur: Status: Acute (2) Alcohol abuse: Status: Acute Plan ?61-year-old male with a past medical history of hypertension, diabetes, alcohol abuse, anemia, history of GI bleed presented to the hospital today with a chief complaint of fall.? sustained a right femoral intertrochanteric fracture.? Admitted for further management Mechanical Fall Right Femur? inter trochanteric Fracture: POD #2 s/p IMN Orthopedics following pain control physical therapy rec STR acute on chronic normocytic anemia likely secondary to recent surgery. no evidence of active bleeding did have heme-positive stools in March secondary to duodenal ulcer/gastritis - will transfuse 1 unit of blood - check stool occult - continue p.o. PPI - follow CBC Alcohol Abuse/Withdrawal does not appear to be actively withdrawing at this time -Continue Phenobarbital Protocol -Thiamine, folate, Multivitamins. History of Hypertension - continue amlodipine, metoprolol History of Diabetes HbA1c 4.8 ISS. Monitor POC glucose. tobacco dependence Smoking cessation advised -NRT hyponatremia, mild Sodium 133 DVT prophylaxis- lovenox (follow CBC) dispo- seen by Physical therapy-rec SNF Patient requires ongoing inpatient hospitalization due to anemia requiring blood transfusion, safe disposition Quality Stroke Does the patient have a stroke diagnosis?: No VTE Prior VTE?: No VTE Risk Level:: Medical - moderate - high VTE Device Contraindication: Treatment Not Indicated VTE Drug Contraindication: N/A - Med Ordered
[2022-06-03 11:39] LABS: Glucose, Whole Blood 113 mg/dL (60-115)
[2022-06-03] MEDS: Sennosides 8.6 MG TABLET 17.2 MG PO (11:39)
[2022-06-03] MEDS: Enoxaparin Sodium 40 MG/0.4 ML SYRINGE SUBCUT (13:58)
--- NOTE | 2022-06-03 14:15 | MHC.CM.PN ---
[facility] feels that Patient would need a Private room r/t Patient receiving only one Covid vax. [facility] sister snf[facility] does have a private room but Patient does not want to go to that facility. Patient has now accepted a bed offer at [facility] and CM has requested that [facility] initiate HNE auth today. CM will follow.
[2022-06-03 15:49] LABS: Glucose, Whole Blood 117 mg/dL (60-115)
[2022-06-03] MEDS: PHENobarbitaL 30 MG TABLET PO (20:33)
[2022-06-03] MEDS: Melatonin 3 MG TABLET 6 MG PO (20:35)
[2022-06-03 20:47] LABS: Glucose, Whole Blood 105 mg/dL (60-115)
[2022-06-04] VITALS: BP 165/80; PULSE 79; RESP 18; TEMP 36.4; O2SAT 99
[2022-06-04 03:12] VITALS: BP 172/86; PULSE 72; RESP 16; TEMP 36.3; O2SAT 98
[2022-06-04] MEDS: Omeprazole 40 MG CAPSULE.DR PO (06:10)
[2022-06-04 06:30] LABS: Hematocrit 26.6 % (42.0-52.0); Hemoglobin 8.3 g/dl (14.0-18.0); Mean Corpuscular HGB Conc 31.2 g/dl (31.0-36.0); Mean Corpuscular Hemoglobin 27.5 pg (27.0-33.0); Mean Corpuscular Volume 88.1 fL (80.0-98.0); Mean Platelet Volume 10.5 fL (9.4-12.4); Platelet Count 246 X10*3/uL (160-400); Red Blood Count 3.02 X10*6/uL (4.60-5.80); Red Cell Distribution Width 17.5 % (11.0-16.0); White Blood Count 7.1 X10*3/uL (4.8-10.8)
[2022-06-04 06:54] LABS: Anion Gap 14 (12-20); Blood Urea Nitrogen 6 mg/dL (9-16); Calcium 8.2 mg/dL (8.4-10.2); Carbon Dioxide 23 mmol/L (22-29); Chloride 101 mmol/L (96-108); Creatinine Clr Calc Pharmacy 109.3; Estimated Glomerular Filt Rate > 60; Glucose Fasting 107 mg/dL (60-99); Potassium 3.6 mmol/L (3.3-5.1); Sodium 134 mmol/L (135-145)
[2022-06-04 07:48] VITALS: BP 188/98; PULSE 68; RESP 15; TEMP 36.6; O2SAT 99
[2022-06-04 07:59] LABS: Glucose, Whole Blood 106 mg/dL (60-115)
[2022-06-04] MEDS: Metoprolol Tartrate 50 MG TABLET PO (08:12)
[2022-06-04] MEDS: oxyCODONE HCl ER 10 MG TAB.ER.12H PO (08:12)
[2022-06-04] MEDS: PHENobarbitaL 30 MG TABLET PO (08:13)
[2022-06-04] MEDS: oxyCODONE HCl Immed Release 5 MG TABLET PO ×2 (08:13→12:54)
[2022-06-04] MEDS: amLODIPine Besylate 5 MG TABLET PO (08:13)
[2022-06-04] MEDS: Nicotine 21 MG PATCH.TD24 TRANSDERMA (08:13)
[2022-06-04] MEDS: 0.9 % Sodium Chloride Flush 3 ML SYRINGE IVFLUSH ×2 (08:14→12:53)
[2022-06-04 08:49] VITALS: PULSE 68; O2SAT 99
[2022-06-04] MEDS: polyethylene glycoL 3350 17 GM POWD.PACK PO (09:37)
[2022-06-04] MEDS: Lactulose 20 GM/30 ML SOLUTION PO (09:52)
[2022-06-04 10:43] LABS: COVID-19 Test Negative (Negative)
[2022-06-04 11:40] LABS: Glucose, Whole Blood 100 mg/dL (60-115)
[2022-06-04 11:44] VITALS: BP 160/80; PULSE 71; RESP 18; TEMP 37.2; O2SAT 100
--- NOTE | 2022-06-04 11:48 | MHC.CM.PN ---
Per ROUNDS discussion, Patient has been set up for dc today at 4PM to go to STR at [facility]. Patient is aware of and in agreement with this dc plan.
[2022-06-04 11:51] LABS: Hematocrit 28.5 % (42.0-52.0); Hemoglobin 9.1 g/dl (14.0-18.0)
[2022-06-04 12:00] VITALS: O2SAT 100
--- NOTE | 2022-06-04 12:51 | P.PNOP_ITS ---
Subjective Subjective Date of Service: 06/04/22 Interval history: POD 3 s/p RT hip IMN no overnight events resting in bed, eating lunch denies cp, sob, palpitations Physical Exam Vital Signs: Vital Signs: Last Vital Signs Temp 99 F 06/04/22 11:44 Pulse 71 06/04/22 11:44 Resp 18 06/04/22 11:44 BP 160/80 H 06/04/22 11:44 Pulse Ox 100 06/04/22 11:44 O2 Del Method 06/04/22 11:44 O2 Flow Rate 0 06/01/22 15:47 BMI result Body Mass Index 19.9 Const: General: cooperative, healthy appearing and no acute distress Resp: Effort & Inspection: normal respiratory effort and able to speak in complete sentences Cardio: Rate: regular rate Peripheral pulses: Peripheral pulses 2+ throughout GI: Palpation (GI): Soft to palpation Skin: General skin exam: no rashes or lesions noted Extrem: Other: incision clean dry and intact. [place] intact. No erythema or effusion. Calf supple nontender. Neurovascularly intact. Procedures Date of Service Date of Service: 06/04/22 Progress Note: A&P Assessment and plan (1) Intertrochanteric fracture of femur: Status: Acute Assessment and Plan: * Continue pain mgmnt * continue lovenox x 6 weeks * continue pt/ot for rt hip imn-gait training and strength * Dispo planning-ok to dc from ortho standpoint Time Spent With Patient Time: Total time spent is greater than 50% in coordination of care (as documented) at patient's floor/unit and/or counseling patient: Quality Stroke Does the patient have a stroke diagnosis?: No VTE Prior VTE?: No VTE Risk Level:: Medical - moderate - high VTE Device Contraindication: Treatment Not Indicated VTE Drug Contraindication: N/A - Med Ordered
[2022-06-04] MEDS: Enoxaparin Sodium 40 MG/0.4 ML SYRINGE SUBCUT (12:52)
[2022-06-04] MEDS: Acetaminophen 325 MG TABLET 650 MG PO (12:53)
--- NOTE | 2022-06-04 13:02 | PM.DS ---
DS: Providers Provider Date of Service: 06/04/22 Date of admission: 05/31/22 23:54 Date of discharge: 06/04/22 Primary care physician: Andrzej Hodge MD Consults: 06/01/22 07:54 Consult to Orthopedics Routine Consulting Provider: Naveen Rai Reason for consultation: right femoral intertrochanteric fracture Attending physician on discharge: Edison Camacho Discharging clinician: Kathryn Rubalcava DS: Diagnosis Discharge Diagnosis (1) Intertrochanteric fracture of femur: Status: Acute DS: Summary Hospital Course Hospital Course: from H&P on day of admission ? 61-year-old male with a past medical history of hypertension, diabetes, alcohol abuse, anemia, history of GI bleed presented to the hospital today with a chief complaint of fall. Patient reported that he was denies SOB, he tripped and fell on the stairs, he tried to get up and fell for the 2nd time on the cup; landed on the hip; followed by had severe pain in the hip not able to move; subsequently EMS was called in and sent him to the hospital for further evaluation.? Denies any numbness tingling or focal weakness.? Patient reports that he drinks alcohol frequently, last drink was the night before.? Denies any chest pain or palpitations.? Denies any fever chills cough or shortness of breath.? Denies any GI symptoms.? Review of all other systems is negative except mentioned above ER course: Per ER team patient noted to have right hip pain; x-ray showed right femoral intertrochanteric fracture.? CT head and CT C-spine showed no acute findings.? Chest x-ray showed finding consistent with COPD.? ER team mentioned that patient appeared to mildly tremulous, started on phenobarb protocol for possible alcohol withdrawal.? ER team also notified orthopedics Dr. Goldsmith- suggested admission to the medicine service and to be evaluated in the morning for possible surgery. patient was admitted to the hospital for management of right femoral intertrochanteric fracture. He was seen in consultation by Orthopedics and underwent IMN on 06/01. he was started on Lovenox for DVT prophylaxis and ortho has recommended 6 weeks of DVT prophylaxis. He should follow up with Orthopedics in 2 weeks. Further instructions in discharge instructions acute on chronic normocytic anemia. No evidence of active bleeding, likely secondary to blood loss from surgery. Was transfused 1 unit of blood. H/ H has remained stable. Has a history of gastritis/ PUD, recommend to continue oral PPI. Recommend to repeat CBC in 1 week Alcohol abuse. Patient was started on phenobarbital protocol. No evidence of active alcohol withdrawal documented history of diabetes. HBA1c was checked and was 4.8. Does not need diabetic sliding scale. Tobacco dependence. Nicotine replacement therapy was initiated. Smoking cessation was advised hyponatremia, mild sodium was 134 On day of discharge HTN. patient continued on home doses of metoprolol and Norvasc. constipation. Patient had bowel movement on day of discharge anticipate less than 30 day stay at SNF Time Spent with Patient Time attestation: Total time spent providing and/or coordinating discharge services: Discharge coordination time: Greater than 30 minutes Quality: Safe Use of Opioids Does Pt have an Active Cancer Diagnosis on the Problem List?: No Quality: Stroke Does the patient have a stroke diagnosis?: No Physical Exam Vital Signs: Vital Signs: Last Vital Signs Temp 99 F 06/04/22 11:44 Pulse 71 06/04/22 11:44 Resp 18 06/04/22 11:44 BP 160/80 H 06/04/22 11:44 Pulse Ox 100 06/04/22 11:44 O2 Del Method 06/04/22 11:44 O2 Flow Rate 0 06/01/22 15:47 BMI result Body Mass Index 19.9 Const: General: cooperative, no acute distress, alert and awake Nutritional Appearance: thin Orientation/consciousness: patient oriented x3 Resp: Effort & Inspection: normal respiratory effort and able to speak in complete sentences Cardio: Rate: regular rate Heart sounds: S1 normal heart sound present and S2 normal heart sound present GI: Palpation (GI): Soft to palpation and nontender Skin: Other: right hip c/d/i Neuro: General: patient oriented x3 Extrem: General: Yes no pedal edema DS: Data Data Completed and Pending Completed studies during hospitalization [Text1]: Procedures Excision of Stomach, Pylorus, Via Natural or Artificial Opening Endoscopic, Diagnostic (04/03/22) Labs on day of discharge: Laboratory Results - last 24 hr 06/03/22 06/03/22 06/04/22 15:45 20:43 05:34 WBC 7.1 RBC 3.02 L D Hgb 8.3 L D Hct 26.6 L D MCV 88.1 MCH 27.5 MCHC 31.2 RDW 17.5 H Plt Count 246 MPV 10.5 Immature Gran % (Auto) Cancelled Neut % (Auto) Cancelled Lymph % (Auto) Cancelled Sharp % (Auto) Cancelled Eos % (Auto) Cancelled Baso % (Auto) Cancelled Lymph # (Auto) Cancelled Sharp # (Auto) Cancelled Eos # (Auto) Cancelled Baso # (Auto) Cancelled Abs Immat Gran (auto) Cancelled Absolute Neuts (auto) Cancelled Absolute Nucleated RBC 0.000 Nucleated RBC % (auto) 0.0 Sodium Potassium Chloride Carbon Dioxide Anion Gap BUN Creatinine Estim Creat Clear Calc Estimated GFR POC Glucose 117 H 105 Fasting Glucose Calcium COVID-19 ([facility]) COVID-19 Clin Com 06/04/22 06/04/22 06/04/22 05:34 07:31 10:09 WBC RBC Hgb Hct MCV MCH MCHC RDW Plt Count MPV Immature Gran % (Auto) Neut % (Auto) Lymph % (Auto) Sharp % (Auto) Eos % (Auto) Baso % (Auto) Lymph # (Auto) Sharp # (Auto) Eos # (Auto) Baso # (Auto) Abs Immat Gran (auto) Absolute Neuts (auto) Absolute Nucleated RBC Nucleated RBC % (auto) Sodium 134 L Potassium 3.6 Chloride 101 Carbon Dioxide 23 Anion Gap 14 BUN 6 L Creatinine 0.63 Estim Creat Clear Calc 109.3 Estimated GFR > 60 POC Glucose 106 Fasting Glucose 107 H Calcium 8.2 L COVID-19 ([facility]) Negative COVID-19 Clin Com See Note 06/04/22 06/04/22 11:18 11:40 WBC RBC Hgb 9.1 L Hct 28.5 L MCV MCH MCHC RDW Plt Count MPV Immature Gran % (Auto) Neut % (Auto) Lymph % (Auto) Sharp % (Auto) Eos % (Auto) Baso % (Auto) Lymph # (Auto) Sharp # (Auto) Eos # (Auto) Baso # (Auto) Abs Immat Gran (auto) Absolute Neuts (auto) Absolute Nucleated RBC Nucleated RBC % (auto) Sodium Potassium Chloride Carbon Dioxide Anion Gap BUN Creatinine Estim Creat Clear Calc Estimated GFR POC Glucose 100 Fasting Glucose Calcium COVID-19 ([facility]) COVID-19 Clin Com Discharge Plan Discharge Patient Disposition: Xfer SNF Discharge Diagnosis: right hip fracture status post IMN Referrals: [facility] [Outside] - 1 Week Andrzej Hodge MD [Primary Care Provider] - 1 Week Amy Carrero PA-C [Physician Dental Laboratory Technician Apprentice] - 2 Weeks Discharge Medications: New nicotine 21 mg/24 hr Patch 24 Hour 21 mg transdermal DAILY Qty: 7 0RF oxycodone 5 mg Tablet 5 mg PO Q4H PRN (Reason: Pain, Moderate (Pain Scale 4-6) Qty: 14 0RF Rx Instructions: Partial Fill upon patient request. oxycodone [OxyContin] 10 mg Tablet,Oral Only,Ext.Rel.12 Hr 10 mg PO BID 4 Days Qty: 8 0RF Rx Instructions: Partial Fill upon patient request. enoxaparin 40 mg/0.4 mL Syringe 40 mg subcut Q24H 42 Days Qty: 16.8 0RF sennosides [Senna Lax] 8.6 mg Tablet 17.2 mg PO BEDTIME PRN (Reason: Constipation) Qty: 1 0RF polyethylene glycol 3350 17 gram Powder In Packet 17 g PO DAILY Qty: 14 0RF Continued folic acid 1 mg tablet 1 mg PO DAILY Qty: 30 0RF ferrous sulfate 325 mg (65 mg iron) tablet 325 mg PO DAILY Qty: 30 0RF amlodipine 5 mg Tablet 5 mg PO DAILY Qty: 30 0RF Protocol: Hold for SBP< HOLD for SBP < : 90 omeprazole 40 mg Capsule,Delayed Release(Dr/Ec) 40 mg PO BID@0630,1630 Qty: 60 0RF clotrimazole 1 % Cream 1 appl topical BID 7 Days Qty: 15 0RF Protocol: Apply to: Apply to: affected areas between toes metoprolol tartrate 50 mg tablet 1 tab PO BID Discharge Orders: Discharge Order (Routine); Ordered 06/04/22 Ordered By: Kathryn Rubalcava Activity on Discharge: As tolerated Stand Alone Forms: Patient Portal Discharge page Care Plan Goals: Restore function of joint Health Concerns: hip fracture status post repair tobacco dependence h/o alcohol abuse anemia Plan of Treatment: Physical Therapy Pain management DVT prophylaxis Assessment: Gait training, strengthening, ADLs Continue lovenox for dvt ppx x6 weeks Keep dressing clean,dry and intact-no showering or tub baths Follow up with Orthopedics in 2 weeks Recommend to repeat H/H in 1 week Abstain from use of alcohol
[2022-06-04] MEDS: Nicotine Polacrilex 2 MG GUM BUCCAL (15:12)
== END 2022-06-04 16:49 | disposition skilled nursing facility (03) | DRG 308 ==
LOC: HO.ED 23:02 → HO.EDOVER 23:58 → HO.S3 06-01 11:23
PROVIDERS: Orthopaedic Surgery; Physician Assistant; Student in an Organized Health Care Education/Training Program; Admitting Provider Hospitalist; Emergency Provider Internal Medicine; PCP Internal Medicine; Visit Provider Physician Assistant Medical
PROC: 0QS636Z Reposition Right Upper Femur with Intramedullary Internal Fixation Device, Percutaneous Approach (ICD-10-PCS; principal; 2022-06-01 10:10)
DX: S72.144A Nondisplaced intertrochanteric fracture of right femur, initial encounter for closed fracture (principal); E87.1 Hypo-osmolality and hyponatremia; E11.9 Type 2 diabetes mellitus without complications; F10.139 Alcohol abuse with withdrawal, unspecified; D64.89 Other specified anemias; F17.210 Nicotine dependence, cigarettes, uncomplicated; Z71.6 Tobacco abuse counseling; I10 Essential (primary) hypertension; K59.00 Constipation, unspecified; W01.0XXA Fall on same level from slipping, tripping and stumbling without subsequent striking against object, initial encounter; J44.9 Chronic obstructive pulmonary disease, unspecified; Z20.822 Contact with and (suspected) exposure to COVID-19; Z88.5 Allergy status to narcotic agent; Z88.8 Allergy status to other drugs, medicaments and biological substances; Z79.899 Other long term (current) drug therapy
CPT/HCPCS: 36415; 70450; 71045; 72125; 73502; 80048; 80076; 80307; 81003; 82077; 82947; 83036; 83540; 83735; 85014; 85018; 85025; 85027; 85610; 86850; 86900; 86901; 86923; 87635; 93005; 97110; 97116; 97162; 97166; 97530; 99285; C1713; C1769; J0690; J1100; J1170; J1650; J2250; J2405; J2795; J3010; P9016; Q0163

== ENCOUNTER 2022-06-18 12:29 | Outpatient (REF) | payer OTHER, MEDICARE, MEDICAID, SELFPAY ==
--- NOTE | ~2022-06-18 | XR_ITS ---
EXAMINATION: XR HIP, RIGHT CLINICAL INFORMATION: Hip pain. COMPARISON: Radiographs pelvis and right hip 05/31/2022; fluoroscopic spot views right hip 06/01/2022. TECHNIQUE: AP view pelvis is performed along with 2 views right hip. FINDINGS: Intertrochanteric fracture right hip is reduced with gamma nail and intramedullary aubrey with distal interlocking screw. The hardware is intact. Fracture fragments are in near-anatomic alignment. There is hairline fracture lesser trochanter again seen. No dislocation or destructive process or osteolysis. The SI joints and pubis show no diastases. There is calcification again seen adjacent to right ischial tuberosity likely calcific tendinosis hamstring. XR/XR hip RT w PEL1V IMPRESSION: -Status post reduction internal fixation right hip fracture in near-anatomic alignment. -Hardware intact. No osteolysis.
== END 2022-06-18 12:30 | disposition home or self-care (01) ==
LOC: HO.HOSX 12:29
PROVIDERS: Visit Provider Physician Assistant
DX: M25.551 Pain in right hip (principal); S72.141A Displaced intertrochanteric fracture of right femur, initial encounter for closed fracture; X58.XXXA Exposure to other specified factors, initial encounter; Y93.9 Activity, unspecified; Y92.9 Unspecified place or not applicable; Y99.8 Other external cause status
CPT/HCPCS: 73502

== ENCOUNTER 2022-07-16 07:16 | Outpatient (REF) | payer OTHER, MEDICARE, MEDICAID, SELFPAY ==
--- NOTE | ~2022-07-16 | XR_ITS ---
EXAMINATION: XR HIP, RIGHT CLINICAL INFORMATION: Pain. COMPARISON: Prior radiographs, most recently 06/18/2022. TECHNIQUE: AP and frog-leg lateral views of the right hip. FINDINGS: There is generalized bony demineralization. The bilateral acetabular joint spaces are well-maintained. There is mild subchondral sclerosis of the right acetabular roof. The femoral heads appear smooth. An intramedullary aubrey and compression screw are applied to the proximal right femur, with healing intertrochanteric fracture in stable anatomic alignment. No hardware failure or loosening is seen. There is no soft tissue gas or foreign body. XR/XR hip RT w PEL1V IMPRESSION: There is well-maintained alignment status-post proximal right femoral ORIF. No hardware failure or loosening is seen.
== END 2022-07-16 07:17 | disposition home or self-care (01) ==
LOC: HO.HOSX 07:16
PROVIDERS: Visit Provider Physician Assistant
DX: M25.551 Pain in right hip (principal)
CPT/HCPCS: 73502

== ENCOUNTER 2022-08-27 07:40 | Outpatient (REF) | payer OTHER, MEDICARE, MEDICAID, SELFPAY ==
--- NOTE | ~2022-08-27 | XR_ITS ---
EXAMINATION: XR HIP, RIGHT CLINICAL INFORMATION: Pain right hip. COMPARISON: Right hip 07/16/2022. TECHNIQUE: Two views of the right hip. FINDINGS: There is a right intramedullary femoral aubrey and a nail stabilizing proximal femoral fracture. There is no dislocation. The SI joints are symmetrical. The left hip is normal. XR/XR hip RT w PEL1V IMPRESSION: Status post right proximal femoral ORIF. The fracture fragments are in alignment. No change in hardware from 07/16/2022.
== END 2022-08-27 07:41 | disposition home or self-care (01) ==
LOC: HO.HOSX 07:40
PROVIDERS: Visit Provider Physician Assistant
DX: M25.551 Pain in right hip (principal)
CPT/HCPCS: 73502

== ENCOUNTER 2022-10-25 08:38 | Outpatient (REF) | payer OTHER, MEDICARE, MEDICAID, SELFPAY | END 2022-10-25 08:39 | disposition home or self-care (01) | LOC: HO.HOSX 08:38 | PROVIDERS: Visit Provider Physician Assistant | DX: Z13.89 Encounter for screening for other disorder (principal) ==

== ENCOUNTER 2025-03-04 10:26 | Emergency (ER) | payer OTHER, MEDICARE, MEDICAID, SELFPAY ==
[2025-03-04 11:05] VITALS: BP 163/100; PULSE 113; RESP 18; TEMP 36.7; O2SAT 98; BMI 20.4
--- NOTE | 2025-03-04 11:12 | ED_ITS ---
HPI - General Adult General Chief complaint: General Medical Stated complaint: tick bite l leg Time Seen by Provider: 03/04/25 11:10 Source: patient, RN notes reviewed and old records reviewed Mode of arrival: ambulatory Limitations: no limitations History of Present Illness ED Provider: Mirian ALVARADO narrative: Patient is a 64-year-old male with history of HTN, DM, alcohol abuse, anemia, GI bleed presenting to the emergency department with complaint of tick bite to left thigh which he noted this morning. States he is outside ?all the time. ? Noted to be hypertensive and tachycardic in triage, states that he ran out of his metoprolol 2 days ago. Denies chest pain, palpitations, dyspnea, headache, vision changes. Denies fevers, body aches, joint pain. MD complaint: tick bite Onset (ago): unknown Location: left and lower extremity Related Data Home Medications ?Medication ?Instructions ?Recorded ?Confirmed metoprolol tartrate 50 mg tablet 1 tab PO BID 06/01/22 06/01/22 Previous Rx's ?Medication ?Instructions ?Recorded amlodipine 5 mg tablet 5 mg PO DAILY #30 tabs 04/06/22 clotrimazole 1 % topical cream 1 appl topical BID 7 days #15 grams 04/06/22 ferrous sulfate 325 mg (65 mg 325 mg PO DAILY #30 tabs 04/08/22 iron) tablet folic acid 1 mg tablet 1 mg PO DAILY #30 tabs 04/08/22 enoxaparin 40 mg/0.4 mL 40 mg (0.4 mL) subcut Q24H 6 weeks 06/04/22 subcutaneous syringe #16.8 mL nicotine 21 mg/24 hr daily 21 mg transdermal DAILY #7 ea 06/04/22 transdermal patch polyethylene glycol 3350 17 gram 17 g PO DAILY #14 ea 06/04/22 oral powder packet sennosides 8.6 mg tablet (Senna 17.2 mg (2 x 8.6 mg) PO BEDTIME 06/04/22 Lax) PRN Constipation #1 tab oxycodone 5 mg tablet 5 mg PO Q12H PRN Pain, Moderate 07/27/22 (Pain Scale 4-6 7 days #14 tabs metoprolol tartrate 50 mg tablet 50 mg PO BID #60 tabs 03/04/25 Allergies Allergy/AdvReac Type Severity Reaction Status Date / Time lisinopril [LISINOPRIL] Allergy Intermediate ANGIOEDEMA Verified 03/04/25 11:10 milk Allergy Stomach Verified 03/04/25 11:10 Upset codeine [CODEINE] AdvReac Mild NAUSEA & Verified 03/04/25 11:10 VOMITING Review of Systems 2 Review of Systems: As per HPI Yes all other systems are reviewed and are negative Constitutional: Constitutional: Reports as per HPI [facility] Past Medical History Medical History Alcohol abuse Alcohol abuse Anemia Diabetes GIB (gastrointestinal bleeding) Hypertension Surgical History No history of previous surgery Social History Social History Household Members: Unknown / Unable to assess Housing: Unknown / Unable to assess Do you presently have visiting nurse or other home services: No Unable to assess alcohol history related to: Unknown Alcohol intake: current Alcohol intake frequency: 3 or more drinks per day Alcohol type: beer Comment: medicated Patient Tobacco Use Status: Tobacco use Unknown Tobacco use type: Cigarette Cigarette Packs Per Day: 1 Cigarettes Per Day: 20.0 service: No Current occupational status: disabled Physical Exam ED Vital Signs: Vital Signs - 24 hr 03/04/25 11:05 Temperature 98.1 F Pulse Rate 113 H Respiratory Rate 18 Blood Pressure 163/100 H Pulse Oximetry 98 Oxygen Delivery Method Room Air BMI result Body Mass Index 20.4 Vital signs have been reviewed and appear to be correct. Blood pressure hypertensive. Heart rate mildly tachycardic. Respiratory rate normal. Temperature normal. Oxygen saturation normal. Const General: cooperative, healthy appearing and no acute distress Orientation/consciousness: oriented to person, oriented to place, oriented to time and patient oriented x3 Limitations: no limitations HENMT Head: Yes normocephalic and Yes atraumatic Ears: external ears normal General nose exam: Normal external nose present Face and sinus: Yes face symmetric Mouth: oropharynx normal and moist mucous membranes Throat: Yes uvula midline Eyes Pupils: Equal, round and reactive pupils present Neck Neck: Yes normal visual inspection and Yes supple Resp Effort & Inspection: normal respiratory effort and able to speak in complete sentences Auscultation: clear to auscultation bilaterally Cardio Rate: regular rate Rhythm: regular rhythm Heart sounds: S1 normal heart sound present and S2 normal heart sound present GI Palpation (GI): Soft to palpation and nontender Auscultation: normoactive bowel sounds General: Yes no CVA tenderness Back/Spine/Pelvis Back: no CVA tenderness Skin General skin exam: elasticity normal and turgor normal Neuro General: oriented to person, oriented to place, oriented to time, patient oriented x3, moves all extremities, no focal motor deficits and CN's II-XI intact bilaterally Cranial nerves: Yes Equal, round and reactive pupils present Cognition (Neuro): normal cognition Extrem General: Yes full ROM, Yes no pedal edema and Yes no calf tenderness Upper/lower leg/hip images: 2 1. tick embedded left thigh with surrounding erythema Psych Mental Status: mental status grossly normal Affect: normal affect Thought process: Normal thought process present Medical Decision Making Medical Decision Making MDM Narrative: Patient is a 64-year-old male with history of HTN, DM, alcohol abuse, anemia, GI bleed presenting to the emergency department with complaint of tick bite to left thigh which he noted this morning. On exam patient is awake, A+Ox3, slightly tachycardic, BP elevated, VS otherwise WNL, afebrile, normal neurological exam without focal deficits, physical exam findings as above. Given reported symptoms and physical exam findings, initial differential includes but is not limited to tick bite, tachycardia, hypertension. Tick removed intact without difficulty with success. Patient medicated with 1 time dose of doxycycline 200 mg. Discussed with patient that if any tick-borne illnesses were transmitted, he would not have symptoms for 4-6 weeks. Patient also medicated with regular dose of metoprolol. Prescription for metoprolol sent to the pharmacy and patient advised to follow up with PCP. Patient stating he does not wait to wish in the emergency department for reassessment after being medicated with metoprolol. I am comfortable with this as patient is on metoprolol at baseline, denies any symptoms. Return precautions discussed. Patient verbalized understanding of and agreement with plan. Differential Diagnosis Differential Diagnoses: The differential diagnosis associated with the presentation includes as per mdm Admission/Observation Consideration of admission/observation: Escalation of care including admission/observation considered Patient would have been admitted to the hospital had their work up had any findings where hospital admission was appropriate and their clinical presentation warranted hospital admission. External Record Review External record reviewed: Inpatient record, Office record and Outpatient record Prescription Management I considered prescription management with: Antibiotic and Other Discharge Plan Discharge Clinical Impression: Tick bite of left thigh, Medication refill Patient Disposition: Home, Self-Care Instructions: Tick Bite (ED) Additional Instructions: You were evaluated in the emergency department today for a tick bite to your leg. The tick was removed and you were given a one-time dose of antibiotics to prevent infection. We also sent a refill of your metoprolol to the pharmacy. Follow up with your primary care provider for additional refills. Return to the emergency department if you develop fever, chills, body aches, rash, joint pain, or any other new or concerning symptoms. Prescriptions: New metoprolol tartrate 50 mg tablet 50 mg PO BID Qty: 60 0RF No Action oxycodone 5 mg tablet 5 mg PO Q12H PRN (Reason: Pain, Moderate (Pain Scale 4-6) 7 Days Qty: 14 0RF Rx Instructions: Partial Fill upon patient request. folic acid 1 mg tablet 1 mg PO DAILY Qty: 30 0RF ferrous sulfate 325 mg (65 mg iron) tablet 325 mg PO DAILY Qty: 30 0RF amlodipine 5 mg Tablet 5 mg PO DAILY Qty: 30 0RF Protocol: Hold for SBP< HOLD for SBP < : 90 clotrimazole 1 % Cream 1 appl topical BID 7 Days Qty: 15 0RF Protocol: Apply to: Apply to: affected areas between toes metoprolol tartrate 50 mg tablet 1 tab PO BID nicotine 21 mg/24 hr Patch 24 Hour 21 mg transdermal DAILY Qty: 7 0RF enoxaparin 40 mg/0.4 mL Syringe 40 mg subcut Q24H 42 Days Qty: 16.8 0RF sennosides [Senna Lax] 8.6 mg Tablet 17.2 mg PO BEDTIME PRN (Reason: Constipation) Qty: 1 0RF polyethylene glycol 3350 17 gram Powder In Packet 17 g PO DAILY Qty: 14 0RF Interventions: ED Discharge Assessment Last Done: 03/04/25 11:30 Print Language: Nepalese
[2025-03-04 11:17] VITALS: PULSE 113
[2025-03-04] MEDS: Ondansetron ODT 4 MG TAB.RAPDIS TRANSLINGU (11:17)
[2025-03-04] MEDS: Metoprolol Tartrate 50 MG TABLET PO (11:17)
[2025-03-04] MEDS: Doxycycline Monohydrate 100 MG CAPSULE 200 MG PO (11:18)
[2025-03-04] MEDS: Ibuprofen 600 MG TABLET PO (11:23)
[2025-03-04 11:30] VITALS: BP 163/100; PULSE 113; RESP 18; TEMP 36.7; O2SAT 98
== END 2025-03-04 11:32 | disposition home or self-care (01) ==
PROVIDERS: Emergency Provider Emergency Medicine; PCP Internal Medicine
DX: S70.362A Insect bite (nonvenomous), left thigh, initial encounter (principal); W57.XXXA Bitten or stung by nonvenomous insect and other nonvenomous arthropods, initial encounter; Y93.9 Activity, unspecified; Y92.9 Unspecified place or not applicable; Y99.8 Other external cause status; Z76.0 Encounter for issue of repeat prescription
CPT/HCPCS: 99283